=== PATIENT | male | born 1965 | race Caucasian/White ===

== ENCOUNTER 2017-11-15 23:21 | Inpatient (IN) | payer OTHER ==
[2017-11-15 23:38] VITALS: BMI 21.9
--- NOTE | 2017-11-16 03:09 | ED PDOC ---
Arrival/HPI - General Chief Complaint: GI Problem Time Seen by Provider: 11/16/17 00:56 Historian: Patient - History of Present Illness Narrative History of Present Illness (Text): 11/16/17 03:05 A 52 year old male, with no known past medical history, presents to the emergency department complaining of abdominal pain and inability to eat. The patient states that he has cirrhosis and the last time he had a tab done was 1 week ago at [facility] [place]. The patient states that he lost his job last year, and has not been able to see a doctor because he has "no money". The patient notes that he has had weight loss since the abdominal pain began because he has not been able to eat. The patient denies fevers, chills, headache, dizziness, chest pain , shortness of breath, dyspnea on exertion, cough, diarrhea, back pain, neck pain, urinary/bowel changes, or any other complaint. PMD: None Time/Duration: Other (Today) Symptom Onset: Sudden Symptom Course: Unchanged Activities at Onset: Rest, Light Context: Street Past Medical History - Provider Review Nursing Documentation Reviewed: Yes - Infectious Disease Hx of Infectious Diseases: None - Musculoskeletal/Rheumatological Hx Falls: Yes - Gastrointestinal Other/Comment: SOME KIND OF LIVER PROBLEM. ? Ascites - Psychiatric Hx Substance Use: No - Anesthesia Hx Anesthesia: Yes Hx Anesthesia Reactions: No Family/Social History - Physician Review Nursing Documentation Reviewed: Yes Family/Social History: No Known Family HX Smoking Status: Never Smoked Hx Alcohol Use: Yes (history) Hx Substance Use: No Allergies/Home Meds Allergies/Adverse Reactions: Allergies No Known Allergies Allergy (Verified 11/16/17 18:28) Review of Systems - Physician Review All systems were reviewed & negative as marked: Yes - Review of Systems Constitutional: absent: Fevers, Night Sweats ENT: absent: Sore Throat Respiratory: absent: SOB, Cough Cardiovascular: absent: Chest Pain, GALEAS Gastrointestinal: Abdominal Pain. absent: Diarrhea Genitourinary Male: absent: Urinary Output Changes Musculoskeletal: absent: Back Pain, Neck Pain Neurological: absent: Headache, Dizziness Physical Exam Vital Signs Temp Pulse Resp BP Pulse Ox 11/16/17 16:25 96 H 19 109/64 100 11/16/17 13:00 79 18 122/65 99 11/16/17 11:30 124/69 11/16/17 11:23 86 18 124/69 99 01/09/18 09:06 90 20 106/70 99 11/16/17 07:00 98.6 F 70 16 102/80 100 11/16/17 05:21 98.6 F 76 18 104/76 100 11/16/17 03:21 98.6 F 82 14 103/62 99 11/16/17 01:21 98.6 F 70 16 100/58 L 100 11/15/17 23:21 98.5 F 80 15 101/61 99 Appearance: Positive for: Well-Appearing, Non-Toxic, Unkept (Homeless) Pain Distress: None Mental Status: Positive for: Alert and Oriented X 3 - Systems Exam Head: Present: Atraumatic, Normocephalic Pupils: Present: PERRL Extroacular Muscles: Present: EOMI Conjunctiva: Present: Normal Mouth: Present: Moist Mucous Membranes Neck: Present: Normal Range of Motion Respiratory/Chest: Present: Clear to Auscultation, Good Air Exchange. No: Respiratory Distress, Accessory Muscle Use Cardiovascular: Present: Regular Rate and Rhythm, Normal S1, S2. No: Murmurs Abdomen: Present: Other (Patient has ascietes over his abdomen. He also has old bandage clark.) Back: Present: Normal Inspection Upper Extremity: Present: Normal Inspection. No: Cyanosis, Edema Lower Extremity: Present: Normal Inspection. No: Edema Neurological: Present: GCS=15, CN II-XII Intact, Speech Normal Skin: Present: Warm, Dry, Normal Color. No: Rashes Psychiatric: Present: Alert, Oriented x 3, Normal Insight, Normal Concentration Medical Decision Making ED Course and Treatment: 11/16/17 03:11 Impression: A 52 year old male presents to the emergency department complaining of abdominal pain. Plan: -- Abdomen/Pelvis CT -- Chest CT -- Chest X-ray -- Labs -- Urinalysis -- Reassess and disposition Prior Visits: Notes and results from previous visits were reviewed. Patient was last seen in the emergency department on 10/25/17. The patient was seen in the emergency department complaining of abdominal discomfort, scrotal and penile edema, and icterus. The patient was hospitalized. Progress Notes: EKG: Ordered, reviewed, and independently interpreted the EKG. Rate : 103 BPM Rhythm : Sinus tachycardia Interpretation : Short IN. Otherwise normal. 11/16/17 05:42: resident care associate shahla. CT Chest Without Intravenous Contrast CT Abdomen and Pelvis Without Intravenous Contrast EXAM DATE/TIME: 11/16/2017 3:04 AM IMPRESSION: - Large amount of abdominal and pelvic free fluid/ascites. - Suspect mild, patchy groundglass consolidation in the upper lobes bilaterally. This could be due to minimal groundglass infiltrates/pneumonia. - Mild, diffuse subcutaneous edema/anasarca. - Otherwise, no evidence of significant acute process on this unenhanced exam. - Periosteal reaction involving the humeri bilaterally, symmetric in appearance , of uncertain etiology. Consider nonemergent followup bone scan for further evaluation. Dictated and Authenticated by: Belinda Fernandes MD 11/16/2017 5:57 AM Eastern Time ([place] & [place]) - Lab Interpretations Lab Results: 11/16/17 03:20 11/16/17 03:20 Lab Results 11/16/17 07:30: Alpha Fetoprotein 2.9 11/16/17 06:40: Urine Color Red, Urine Appearance Turbid, Urine pH 5.5, Ur Specific [place] >= 1.030, Urine Protein 30 H, Urine Glucose (UA) 100 H, Urine Ketones Trace H, Urine Blood Negative, Urine Nitrate Positive H, Urine Bilirubin Large H, Urine Urobilinogen 2.0 H, Ur Leukocyte Esterase Negative, Urine RBC Negative, Urine WBC 0 - 2, Ur Epithelial Cells 1 - 3, Urine Bacteria Trace, Hyaline Casts 5 - 10, Urine Other Mucus 11/16/17 03:20: Hepatitis A IgM Ab Negative, Hep Bs Antigen Negative, Hep B Core IgM Ab Negative, Hepatitis C Antibody Negative 11/16/17 03:20: Sodium 131 L, Potassium 4.3, Chloride 100, Carbon Dioxide 23, Anion Gap 13, BUN 27 H, Creatinine 1.3, Est GFR ( Amer) > 60, Est GFR ( Non-Af Amer) 58, Random Glucose 109, Calcium 8.9, Total Bilirubin 8.0 H, Direct Bilirubin 3.8 H, AST 69 H D, ALT 30, Alkaline Phosphatase 93, Lactate Dehydrogenase 527, Total Creatine Kinase 66, Troponin I < 0.01, NT-Pro-B Natriuret Pep 387, Total Protein 7.7, Albumin 2.9 L, Globulin 4.9, Albumin/ Globulin Ratio 0.6 L, Lipase 77 11/16/17 03:20: PT 25.5 H, INR 2.20 H 11/16/17 03:20: WBC 5.8, RBC 2.62 L, Hgb 8.7 L, Hct 24.5 L, MCV 93.5, MCH 33.2, MCHC 35.5, RDW 15.3 H, Plt Count 151, MPV 10.7, Gran % 61.9, Lymph % (Auto) 29.4 , [place] % (Auto) 8.0 H, Eos % (Auto) 0.5 L, Baso % (Auto) 0.2, Gran # 3.56, Lymph # 1.7, [place] # 0.5, Eos # 0.0, Baso # 0.01 I have reviewed the lab results: Yes - RAD Interpretation Radiology Orders: 11/16/17 03:04 CHEST,ABDOMEN, PELVIS W/O CONT [CT] Stat CHEST PORTABLE [RAD] Stat - Medication Orders Current Medication Orders: Albuterol/Ipratropium (Duoneb 3 Mg/0.5 Mg (3 Ml) Ud) 3 ml IH Q2H PRN PRN Reason: Shortness of Breath Calcium Carbonate (Oscal) 500 mg PO DAILY [facility] Last Admin: 11/18/17 10:35 Dose: 500 mg Folic Acid (Folic Acid) 1 mg PO DAILY [facility] Last Admin: 11/18/17 10:35 Dose: 1 mg Furosemide (Lasix) 40 mg PO DAILY [facility] Last Admin: 11/17/17 09:24 Dose: Not Given Non-Admin Reason: BP Parameters Not Met MAR Blood Pressure Document 11/17/17 09:24 TAV (Rec: 11/17/17 09:24 TAV [id number]) Blood Pressure Blood Pressure (100/60-150/90) 92/54 Lactulose (Enulose) 20 gm PO BID [facility] Last Admin: 11/18/17 17:27 Dose: 20 gm Lorazepam (Ativan) 1 mg IVP Q6H PRN; Protocol PRN Reason: Anxiety Multivitamins/Minerals (Therapeutic-M Tab) 1 tab PO 0800 [facility] Last Admin: 11/18/17 08:32 Dose: 1 tab Ondansetron HCl (Zofran Inj) 4 mg IVP Q4H PRN PRN Reason: Nausea/Vomiting Pantoprazole Sodium (Protonix Ec Tab) 40 mg PO 0600 [facility] Last Admin: 11/19/17 06:28 Dose: 40 mg Spironolactone (Aldactone) 50 mg PO DAILY [facility] Last Admin: 11/17/17 09:25 Dose: 50 mg Thiamine HCl (Vitamin B1 Tab) 100 mg PO DAILY [facility] Last Admin: 11/18/17 10:35 Dose: 100 mg Discontinued Medications Albumin Human (Albumin Human 25% (12.5 Gm/50 Ml)) 12.5 gm IV Q5H [facility] Stop: 11/19/17 08:31 Last Admin: 11/18/17 06:38 Dose: 12.5 gm eMAR Start Stop Document 11/18/17 06:38 BR (Rec: 11/18/17 06:39 BR [id number]) Intravenous Solution Start Date 11/18/17 Start Time 06:38 End Date 11/18/17 Azithromycin (Zithromax) 500 mg PO STAT [facility] PRN Reason: Protocol Stop: 11/16/17 09:16 Last Admin: 11/16/17 11:30 Dose: 500 mg Furosemide (Lasix) 40 mg IVP STAT ST[facility] Stop: 11/16/17 10:29 Last Admin: 11/16/17 11:30 Dose: 40 mg MAR Blood Pressure Document 11/16/17 11:30 SF (Rec: 11/16/17 11:31 SF [email or web address]) Blood Pressure Blood Pressure (100/60-150/90) 124/69 IVP Administration Document 11/16/17 11:30 SF (Rec: 11/16/17 11:31 SF [email or web address]) Charges for Administration # of IVP Administrations 1 Ceftriaxone Sodium (Rocephin 1 Gram Ivpb) 1 gm in 100 mls @ 200 mls/hr IVPB STAT STA PRN Reason: Protocol Stop: 11/16/17 09:44 Last Admin: 11/16/17 11:30 Dose: 200 mls/hr eMAR Start Stop Document 11/16/17 11:30 SF (Rec: 11/16/17 11:30 SF [email or web address]) Intravenous Solution Start Date 11/16/17 Start Time 11:30 End Date 11/16/17 End time 12:00 Total Infusion Time 30 Sodium Chloride (Sodium Chloride 0.9%) 500 mls @ 1,000 mls/hr IV .Q30M ONE Stop: 11/17/17 11:11 Last Admin: 11/17/17 14:58 Dose: 1,000 mls/hr eMAR Start Stop Document 11/17/17 14:58 TAV (Rec: 11/17/17 14:59 TAV [id number]) Intravenous Solution Start Date 11/17/17 Start Time 14:20 End Date 11/17/17 End time 14:50 Total Infusion Time 30 Ceftriaxone Sodium (Rocephin 2 Gm Ivpb) 2 gm in 100 mls @ 100 mls/hr IVPB DAILY [facility] PRN Reason: Protocol Last Admin: 11/18/17 10:36 Dose: 100 mls/hr eMAR Start Stop Document 11/18/17 10:36 TAV (Rec: 11/18/17 10:37 TAV [id number]) Intravenous Solution Start Date 11/18/17 Start Time 10:36 End Date 11/18/17 End time 11:40 Total Infusion Time 64 Vancomycin HCl (Vancomycin 1gm) 1 gm in 250 mls @ 167 mls/hr IVPB Q12H [facility] PRN Reason: Protocol Last Admin: 11/17/17 23:25 Dose: 167 mls/hr eMAR Start Stop Document 11/17/17 23:25 BR (Rec: 11/17/17 23:25 BR [id number]) Intravenous Solution Start Date 11/17/17 Start Time 23:25 End Date 11/18/17 End time 00:55 Total Infusion Time 90 Magnesium Oxide (Mag-Ox) 400 mg PO STAT STA Stop: 11/18/17 07:49 Last Admin: 11/18/17 08:32 Dose: 400 mg Phytonadione (Vitamin K Tab) 10 mg PO STAT STA Stop: 11/16/17 18:38 Last Admin: 11/16/17 18:49 Dose: 10 mg Pneumococcal Polyvalent Vaccine (Pneumovax 23 Vaccine) 0.5 ml IM .ONCE ONE Stop: 11/16/17 20:11 Potassium Chloride (K-Dur 20 Meq Er Tab) 40 meq PO STAT ST[facility] Stop: 11/18/17 07:49 Last Admin: 11/18/17 08:31 Dose: 40 meq Tramadol HCl (Ultram) 25 mg PO STAT STA Stop: 11/17/17 21:53 Last Admin: 11/17/17 21:59 Dose: 25 mg MAR Pain Assessment Document 11/17/17 21:59 BR (Rec: 11/17/17 21:59 BR [id number]) Pain Reassessment Is this a pain reassessment? No Sleep Is patient sleeping during reassessment? No Presence of Pain Presence of Pain Yes - PA / TAX AUDITOR / Resident Statement MD/DO has reviewed & agrees with the documentation as recorded. - Scribe Statement The provider has reviewed the documentation as recorded by the Scribe Pippa Lorenzo Provider Scribe Attestation: All medical record entries made by the Scribe were at my direction and personally dictated by me. I have reviewed the chart and agree that the record accurately reflects my personal performance of the history, physical exam, medical decision making, and the department course for this patient. I have also personally directed, reviewed, and agree with the discharge instructions and disposition. Disposition/Present on Arrival - Present on Arrival Any Indicators Present on Arrival: No History of DVT/PE: No History of Uncontrolled Diabetes: No Urinary Catheter: No History of Decub. Ulcer: No History Surgical Site Infection Following: None - Disposition Have Diagnosis and Disposition been Completed?: Yes Diagnosis: Alcoholic cirrhosis of liver with ascites Disposition: HOSPITALIZED Disposition Time: 07:00 Patient Plan: Admission Patient Problems: Current Active Problems Problem Status Onset Alcoholic cirrhosis of liver with ascites Acute Condition: FAIR
[2017-11-16 04:01] LABS: ALBUMIN 2.9 g/dL (3.0-4.8); ALT/SGPT 30 U/L (7-56); AST/SGOT 69 U/L (17-59); BLOOD UREA NITROGEN 27 mg/dL (7-21); CALCIUM 8.9 mg/dL (8.4-10.5); GFR AFRICAN-AMERICAN > 60; GFR NON-AFRICAN AMERICAN 58; INR 2.2 (0.93-1.08); LIPASE 77 U/L (23-300); PROTHROMBIN TIME 25.5 SECONDS (9.4-12.5)
[2017-11-16 04:11] LABS: B-TYPE NATRIURETIC PEPTIDE 387 pg/mL (0-450); TROPONIN I < 0.01 ng/mL
[2017-11-16 04:12] LABS: ALB/GLOB RATIO 0.6 (1.1-1.8); BILIRUBIN,DIRECT 3.8 mg/dL (0.0-0.4)
[2017-11-16 04:23] LABS: BASO # 0.01 K/mm3 (0.0-2.0); BASO % 0.2 % (0.0-3.0); EOS % 0.5 % (1.5-5.0); GRAN # 3.56 (1.4-6.5); GRAN % 61.9 % (50.0-68.0); HEMOGLOBIN 8.7 g/dL (14.0-18.0); LYMPH # 1.7 (1.2-3.4); LYMPH % 29.4 % (22.0-35.0); MEAN CELL VOLUME 93.5 fl (80.0-105.0); MEAN CORPUSCULAR HEMOGLOBIN 33.2 pg (25.0-35.0); MEAN CORPUSCULAR HGB CONC 35.5 g/dl (31.0-37.0); MEAN PLATELET VOLUME 10.7 fl (7.0-11.0); MONO # 0.5 (0.1-0.6); RBC 2.62 10^6/uL (3.5-6.1); RED CELL DISTRIBUTION WIDTH 15.3 % (11.5-14.5); WHITE BLOOD COUNT 5.8 10^3/ul (4.5-11.0)
--- NOTE | 2017-11-16 05:58 | CT ---
EXAM: CT Chest Without Intravenous Contrast CT Abdomen and Pelvis Without Intravenous Contrast EXAM DATE/TIME: 11/16/2017 3:04 AM CLINICAL HISTORY: 52 years old, male; Pain; Abdominal pain; Chest pain; Additional info: Cirrhosis, cachexia, ascites, abdominal pain TECHNIQUE: Axial computed tomography images of the chest, abdomen and pelvis without intravenous contrast. All CT scans at this facility use one or more dose reduction techniques, viz.: automated exposure control; ma/kV adjustment per patient size (including targeted exams where dose is matched to indication; i.e. head); or iterative reconstruction technique. All CT scans at this facility use one or more dose reduction techniques, viz.: automated exposure control; ma/kV adjustment per patient size (including targeted exams where dose is matched to indication; i.e. head); or iterative reconstruction technique. Coronal and sagittal reformatted images were created and reviewed. COMPARISON: No relevant prior studies available. FINDINGS: CHEST: LUNGS: Scattered patchy groundglass densities in the anterior upper lobes bilaterally. Findings could represent scattered, mild groundglass consolidation. Dense consolidation in the lung bases bilaterally, greater on the right, which most likely represents compressive atelectasis. Lung volumes are low. Right diaphragm is mildly elevated. No evidence of diffuse pulmonary vascular congestion. PLEURAL SPACE: No pneumothorax or significant pleural effusions seen. HEART: No evidence of significant pericardial effusion. ABDOMEN: LIVER: Liver is small in size, which could be due to cirrhotic change. It is otherwise within normal limits in appearance on this unenhanced exam. GALLBLADDER AND BILE DUCTS: High density material in the gallbladder lumen, likely representing gallbladder sludge. Fluid is seen adjacent to the gallbladder. This is most likely related to the generalized abdominal free fluid rather than representing pericholecystic fluid secondary to acute cholecystitis. PANCREAS: No CT evidence of acute pancreatitis. SPLEEN: No acute abnormality of the spleen identified. ADRENALS: No acute abnormality of the adrenal glands. KIDNEYS AND URETERS: No acute abnormality of the kidneys seen. STOMACH AND BOWEL: Intramural lipomatosis of the ascending colon. This is a nonspecific finding, but can be a sign of previous episodes of inflammatory bowel disease. Otherwise, no significant abnormality of the bowel is identified. No acute abnormality of the stomach or duodenum identified. APPENDIX: Appendix is seen, and is within normal limits in appearance. PELVIS: BLADDER: No acute abnormality of the bladder identified. REPRODUCTIVE: No acute abnormality of the reproductive organs is seen. CHEST, ABDOMEN and PELVIS: INTRAPERITONEAL SPACE: Large amount of abdominal and pelvic free fluid/ascites. No evidence of free air. BONES/JOINTS: Periosteal reaction seen involving the humeral shafts bilaterally. This is smooth in appearance, and appears symmetric. No evidence of diffuse bony metastatic lesions. SOFT TISSUES: Mild, diffuse subcutaneous edema/anasarca. VASCULATURE: Exam is nondiagnostic for aortic dissection, secondary to unenhanced technique. No evidence of abdominal aortic aneurysm. LYMPH NODES: No evidence of diffuse lymphadenopathy. IMPRESSION: - Large amount of abdominal and pelvic free fluid/ascites. - Suspect mild, patchy groundglass consolidation in the upper lobes bilaterally. This could be due to minimal groundglass infiltrates/pneumonia. - Mild, diffuse subcutaneous edema/anasarca. - Otherwise, no evidence of significant acute process on this unenhanced exam. - Periosteal reaction involving the humeri bilaterally, symmetric in appearance, of uncertain etiology. Consider nonemergent followup bone scan for further evaluation. - See above for remaining findings.
[2017-11-16 07:20] LABS: PH,URINE 5.5 (4.7-8.0); URINE BILIRUBIN LARGE (NEGATIVE); URINE BLOOD NEGATIVE (NEGATIVE); URINE GLUCOSE (UA) 100 mg/dL (NEGATIVE); URINE LEUKOCYTE ESTERASE NEGATIVE Leu/uL (NEGATIVE); URINE NITRATE POSITIVE (NEGATIVE); URINE PROTEIN 30 mg/dL (<30 mg/dL)
[2017-11-16 07:33] LABS: URINE APPEARANCE TURBID (CLEAR); URINE COLOR RED (YELLOW)
[2017-11-16 07:54] LABS: URINE BACTERIA TRACE (NEG); URINE RBC NEGATIVE /hpf (0-2); URINE WBC 0 - 2 /hpf (0-6)
[2017-11-16] MEDS ORDERED: cefTRIAXone 1 gm 1 GM/100 ML BAG IVPB STA (09:15)
--- NOTE | 2017-11-16 09:18 | ED PDOC ---
Physical Exam Vital Signs Reviewed: Yes Vital Signs Temp Pulse Resp BP Pulse Ox 11/16/17 09:06 90 20 106/70 99 11/16/17 07:00 98.6 F 70 16 102/80 100 11/16/17 05:21 98.6 F 76 18 104/76 100 11/16/17 03:21 98.6 F 82 14 103/62 99 11/16/17 01:21 98.6 F 70 16 100/58 L 100 11/15/17 23:21 98.5 F 80 15 101/61 99 Temperature: Afebrile Blood Pressure: Normal Pulse: Regular Respiratory Rate: Normal Appearance: Positive for: Well-Appearing Pain Distress: None Mental Status: Positive for: Alert and Oriented X 3 Medical Decision Making ED Course and Treatment: 11/16/17 09:00 Patient signed out to me by Dr. Martin. Patient to follow-up with Urinalysis and to be admitted to GI evaluation. On exam patient appears jaundice. Abdomen is ascites and distended. No tenderness. He is not vomiting. Case was discussed with Dr. Jhaveri who recommends full admission secondary to INR elevation and need for tap by IR. CT reviewed with Dr. Jhaveri who recommends antibiotics. - Lab Interpretations Lab Results: 11/16/17 03:20 11/16/17 03:20 Lab Results 11/16/17 06:40: Urine Color Red, Urine Appearance Turbid, Urine pH 5.5, Ur Specific [place] >= 1.030, Urine Protein 30 H, Urine Glucose (UA) 100 H, Urine Ketones Trace H, Urine Blood Negative, Urine Nitrate Positive H, Urine Bilirubin Large H, Urine Urobilinogen 2.0 H, Ur Leukocyte Esterase Negative, Urine RBC Negative, Urine WBC 0 - 2, Ur Epithelial Cells 1 - 3, Urine Bacteria Trace, Hyaline Casts 5 - 10, Urine Other Mucus 11/16/17 03:20: Sodium 131 L, Potassium 4.3, Chloride 100, Carbon Dioxide 23, Anion Gap 13, BUN 27 H, Creatinine 1.3, Est GFR ( Amer) > 60, Est GFR ( Non-Af Amer) 58, Random Glucose 109, Calcium 8.9, Total Bilirubin 8.0 H, Direct Bilirubin 3.8 H, AST 69 H D, ALT 30, Alkaline Phosphatase 93, Lactate Dehydrogenase 527, Total Creatine Kinase 66, Troponin I < 0.01, NT-Pro-B Natriuret Pep 387, Total Protein 7.7, Albumin 2.9 L, Globulin 4.9, Albumin/ Globulin Ratio 0.6 L, Lipase 77 11/16/17 03:20: PT 25.5 H, INR 2.20 H 11/16/17 03:20: WBC 5.8, RBC 2.62 L, Hgb 8.7 L, Hct 24.5 L, MCV 93.5, MCH 33.2, MCHC 35.5, RDW 15.3 H, Plt Count 151, MPV 10.7, Gran % 61.9, Lymph % (Auto) 29.4 , [place] % (Auto) 8.0 H, Eos % (Auto) 0.5 L, Baso % (Auto) 0.2, Gran # 3.56, Lymph # 1.7, [place] # 0.5, Eos # 0.0, Baso # 0.01 - RAD Interpretation Radiology Orders: 11/16/17 03:04 CHEST,ABDOMEN, PELVIS W/O CONT [CT] Stat CHEST PORTABLE [RAD] Stat - Medication Orders Current Medication Orders: Azithromycin (Zithromax) 500 mg PO STAT STA PRN Reason: Protocol Stop: 11/16/17 09:16 Ceftriaxone Sodium (Rocephin 1 Gram Ivpb) 1 gm in 100 mls @ 200 mls/hr IVPB STAT STA PRN Reason: Protocol Stop: 11/16/17 09:44 - Scribe Statement The provider has reviewed the documentation as recorded by the Olegario Horta Provider Scribe Attestation: All medical record entries made by the Olegario were at my direction and personally dictated by me. I have reviewed the chart and agree that the record accurately reflects my personal performance of the history, physical exam, medical decision making, and the department course for this patient. I have also personally directed, reviewed, and agree with the discharge instructions and disposition. Disposition/Present on Arrival - Present on Arrival Any Indicators Present on Arrival: No History of DVT/PE: No History of Uncontrolled Diabetes: No Urinary Catheter: No History of Decub. Ulcer: No History Surgical Site Infection Following: None - Disposition Have Diagnosis and Disposition been Completed?: Yes Diagnosis: Alcoholic cirrhosis of liver with ascites Disposition Time: 09:12 Patient Plan: Admission Condition: FAIR
--- NOTE | 2017-11-16 09:47 | RAD ---
HISTORY: Weight Loss COMPARISON: No prior. FINDINGS: LUNGS: There is minimal bibasilar atelectasis. Poor inspiratory effort with diminished lung volumes PLEURA: No significant pleural effusion identified, no pneumothorax apparent. CARDIOVASCULAR: Normal. OSSEOUS STRUCTURES: No significant abnormalities. VISUALIZED UPPER ABDOMEN: Normal. OTHER FINDINGS: None. IMPRESSION: Minimal bibasilar atelectasis.
[2017-11-16] MEDS ORDERED: Albuterol-Ipratrop 3 mg / 0.5 (3 ml) UD IH PRN (10:23)
--- NOTE | 2017-11-16 10:36 | CP.PCM.CON ---
<Vidhya Waite - Last Filed: 11/16/17 15:20> History of Present Illness - History of Present Illness History of Present Illness: PGY2 Medicine Resident Consult note for GI 52yo male PMHx alcoholic cirrhosis and ascites with two prior paracentesis, EtOH abuse, asthma and depression presents to ED complaining of abdominal pain and abdominal swelling for 2 months worsening in the past week prior to admission. Patient reports the pain is 7/10 in intensity and described it as a pinching sensation. He stated the pain was diffuse throughout his abdomen and radiated to his back. He stated eating and drinking water exacerbated the pain which caused him to have a decreased appetite and some weight loss. Patient also complained of SOB and dyspnea on exertion but was unable to quantify how many blocks he was able to walk before becoming dyspneic. He also admitted to a nonproductive cough. Patient states he has been constipated and doesn't feel like he is going as he usually does. His last BM was 2 days ago and he stated he believes he noticed some specks of blood from straining and states that his stool was a little loose. He denied any tarry stool/melena. Patient also admits to some episodes of nausea and nonbloody nonbilious emesis "once in a while." He admitted to headaches and pain in his legs b/l and pruritus. Denied any travel history. Please note: patient reports he has been compliant in taking medications upon discharge from but states he ran out after finishing med course. ROS: 12 point review of systems negative except as indicated in HPI PMHx: alcoholic cirrhosis and ascites with two prior paracentesis, EtOH abuse, asthma and depression PSurgHx: ventral hernia repair PProcedures: paracentesis Oct 2017 at [facility] [place] removing 3.5L; denied hx of colonoscopy or EGD in the past PHospitalization: [facility] 10/25-11/03: admitted for ascites- paracentesis was not performed as not enough fluid to tap on u/s Family Hx: sister with asthma and "kidney problem"; father had heart disease; no hx if colon or gastric ca Social Hx: drinks a [employer] Lite 6pack-more [uncertain of amount] on social occasions which he states he has many of; last drink was in the summer 2016; denies EtOH and drug use; lives in a care home and is unemployed Medications: Please see medication reconciliation ALL: NKDA PMD: None GI: None Pharmacy: None Review of Systems - Review of Systems All systems: reviewed and no additional remarkable complaints except - Constitutional Constitutional: As Per HPI. absent: Chills, Fever - EENT Eyes: As Per HPI. absent: Blurred Vision Ears: As Per HPI. absent: Dizziness Nose/Mouth/Throat: As Per HPI, Dry Mouth - Cardiovascular Cardiovascular: As Per HPI, Dyspnea, Lightheadedness. absent: Chest Pain, Edema - Respiratory Respiratory: As Per HPI, Cough, Dyspnea, Dyspnea on Exertion. absent: Wheezing - Gastrointestinal Gastrointestinal: As Per HPI, Abdominal Pain, Constipation, Loose Stools, Nausea , Vomiting (nonbloody nonbilious). absent: Melena - Genitourinary Genitourinary: As Per HPI. absent: Dysuria, Hematuria - Musculoskeletal Musculoskeletal: As Per HPI, Arthralgias. absent: Numbness, Tingling - Integumentary Integumentary: As Per HPI, Pruritus, Jaundice - Neurological Neurological: As Per HPI, Headaches. absent: Dizziness - Psychiatric Psychiatric: As Per HPI, Depression. absent: Anxiety - Endocrine Endocrine: As Per HPI, Polydipsia. absent: Polyphagia - Hematologic/Lymphatic Hematologic: As Per HPI. absent: Easy Bruising Past Patient History - Infectious Disease Hx of Infectious Diseases: None - Past Social History Smoking Status: Never Smoked - MUSCULOSKELETAL/RHEUMATOLOGICAL Hx Falls: Yes - GASTROINTESTINAL Other/Comment: SOME KIND OF LIVER PROBLEM. ? Ascites - PSYCHIATRIC Hx Substance Use: No - SURGICAL HISTORY Hx Surgeries: Yes Hx Herniorrhaphy: Yes - ANESTHESIA Hx Anesthesia: Yes Hx Anesthesia Reactions: No Meds Allergies/Adverse Reactions: Allergies Allergy/AdvReac Type Severity Reaction Status Date / Time No Known Allergies Allergy Verified 10/25/17 19:01 - Medications Medications: Current Medications Albuterol/Ipratropium (Duoneb 3 Mg/0.5 Mg (3 Ml) Ud) 3 ml IH Q2H PRN PRN Reason: Shortness of Breath Lorazepam (Ativan) 1 mg IVP Q6H PRN; Protocol PRN Reason: Anxiety Multivitamins/Minerals (Therapeutic-M Tab) 1 tab PO 0800 [facility] Ondansetron HCl (Zofran Inj) 4 mg IVP Q4H PRN PRN Reason: Nausea/Vomiting Pantoprazole Sodium (Protonix Ec Tab) 40 mg PO 0600 MUNA Spironolactone (Aldactone) 50 mg PO DAILY MUNA Thiamine HCl (Vitamin B1 Tab) 100 mg PO DAILY MUNA Physical Exam - Constitutional Appears: No Acute Distress, Unkempt, Chronically Ill Additional comments: jaundiced - Head Exam Head Exam: ATRAUMATIC, NORMAL INSPECTION, NORMOCEPHALIC - Eye Exam Eye Exam: EOMI, PERRL, Scleral icterus. absent: Conjunctival injection, Normal appearance - ENT Exam ENT Exam: Mucous Membranes Dry - Neck Exam Neck exam: Positive for: Full Rom, Normal Inspection - Respiratory Exam Respiratory Exam: NORMAL BREATHING PATTERN. absent: Accessory Muscle Use, Respiratory Distress - Cardiovascular Exam Cardiovascular Exam: REGULAR RHYTHM, RRR, +S1, +S2. absent: Systolic Murmur - GI/Abdominal Exam GI & Abdominal Exam: Diminished Bowel Sounds, Distended, Soft, Tenderness ( diffuse to palpation). absent: Guarding, Organomegaly, Rigid - Extremities Exam Extremities exam: Positive for: normal capillary refill, normal inspection, pedal pulses present. Negative for: pedal edema - Neurological Exam Neurological exam: Alert, Oriented x3 - Psychiatric Exam Psychiatric exam: Normal Affect, Normal Mood - Skin Skin Exam: Dry, Intact, Warm Additional comments: +jaundice Results - Vital Signs Recent Vital Signs: Last Vital Signs Temp 98.6 F 11/16/17 07:00 Pulse 90 11/16/17 09:06 Resp 20 11/16/17 09:06 BP 106/70 11/16/17 09:06 Pulse Ox 99 11/16/17 09:06 - Labs Result Diagrams: 11/16/17 03:20 11/16/17 03:20 Assessment & Plan - Assessment and Plan (Free Text) Assessment: 52year old male PMHx alcoholic cirrhosis and ascites with two prior paracentesis , EtOH abuse, asthma and depression presents to ED complaining of abdominal pain and abdominal swelling for 2 months worsening in the past week prior to admission. 1.Decomponsated alcoholic cirrhosis with ascites 2.Concern for alcoholic hepatitis 3.Elevated INR 4.H of Anemia 5.Hx of alcohol abuse 6.Hx of asthma 7.Hx of depression Plan: -continue thiamine, folic acid, multivitamin and aldactone daily -CT Abd/pelvis: large amt abdominal and pelvc free fluid/ascites. Suspect mild, patchy ground glass consolidation in upper lobes b/l coudl be due to minimal groundglass infiltrates/pneumonia; mild diffuse subcutaneous edema/anasarca; no evidence of significant acute process on unhenanced exam -Hepatitis panel negative -f/u blood and urine cultures -f/u ammonia -f/u fluid studies -f/u abd u/s -f/u AFP -MELD-Na: 29 -Maddrey's Discriminant Factor: 67.8 -will discuss possible steroid therapy -monitor electrolytes and will add lasix accordingly -Child-Hilliard Score: 11 Child class C -IR Dr. Sullivan consulted for paracentesis -continue management as per primary GI will continue to follow Discussed with Dr. Ethan Waite PGY2 <Jose Guadalupe Long - Last Filed: 11/16/17 18:28> Meds - Medications Medications: Current Medications Albuterol/Ipratropium (Duoneb 3 Mg/0.5 Mg (3 Ml) Ud) 3 ml IH Q2H PRN PRN Reason: Shortness of Breath Folic Acid (Folic Acid) 1 mg PO DAILY MUNA Furosemide (Lasix) 40 mg PO DAILY MUNA Lorazepam (Ativan) 1 mg IVP Q6H PRN; Protocol PRN Reason: Anxiety Multivitamins/Minerals (Therapeutic-M Tab) 1 tab PO 0800 MUNA Ondansetron HCl (Zofran Inj) 4 mg IVP Q4H PRN PRN Reason: Nausea/Vomiting Pantoprazole Sodium (Protonix Ec Tab) 40 mg PO 0600 MUNA Spironolactone (Aldactone) 50 mg PO DAILY MUNA Thiamine HCl (Vitamin B1 Tab) 100 mg PO DAILY MUNA Results - Vital Signs Recent Vital Signs: Last Vital Signs Temp 98.6 F 11/16/17 07:00 Pulse 96 H 11/16/17 16:25 Resp 19 11/16/17 16:25 BP 109/64 11/16/17 16:25 Pulse Ox 100 11/16/17 16:25 - Labs Result Diagrams: 11/16/17 03:20 11/16/17 03:20 Labs: Laboratory Results - last 24 hr 11/16/17 11/16/17 11:30 11:30 Ammonia 42 H Blood Type O POSITIVE Antibody Screen Negative BBK History Checked Patient has bt Attending/Attestation - Attestation I have personally seen and examined this patient.: Yes I have fully participated in the care of the patient.: Yes I have reviewed all pertinent clinical information: Yes Notes (Text): 11/16/17 18:26 52 year old male h/o alcoholic cirrhosis, ascites admitted with abdominal distention. 1.Ascites 2.Cirrhosis Plan: -decompensated alcholic cirrhosis with ascites -recommend LVP, send fluid for cell count, diff, cytology, culture, tp, and albumin -replace albumin 25g/3 liters removed -continue diuretics -restrict sodium to less than 2 g per day -no indication for steroids as patient is already cirrhotic with small/nodular liver -patient doesn't appear to have alcholic hepatitis
--- NOTE | 2017-11-16 10:46 | CP.PCM.HP ---
<Junior Villegas - Last Filed: 11/16/17 13:57> History of Present Illness - History of Present Illness History of Present Illness: Junior Villegas PGY1 IM H&P for Dr. Jhaveri cc: difficulty eating and abdominal distention Mr. Ashton is a 52yo male with a PMH cirrhosis and ascites likely 2/2 ETOH (with 2 prior paracentesis removing 3.5L), ETOH abuse, and asthma who presented with abdominal pain and abdominal distention that started a year ago but has been progressing for 2 months. He stated eating and drinking water exacerbated the pain which caused him to have a decreased appetite and 20 pound loss. Patient also complained of SOB and dyspnea on exertion. He denied any tarry stool/melena. Patient also admits to some episodes of nausea and nonbloody nonbilious emesis. Patient reports he has been compliant in taking medications upon discharge from but states he ran out after finishing course , and doesn't have insurance/money to afford meds. 12-pt ROS was reviewed and is otherwise unremarkable. PMH: as above PSH: ventral hernia repair SHx: drinks beer socially (less than before but still significant), last drink was in the summer 2016; denies EtOH and drug use; lives in a prison and is unemployed NKDA Present on Admission - Present on Admission Any Indicators Present on Admission: No Review of Systems - Review of Systems All systems: reviewed and no additional remarkable complaints except (as per HPI ) Past Patient History - Infectious Disease Hx of Infectious Diseases: None - Past Social History Smoking Status: Never Smoked Alcohol: Social Drugs: Denies Home Situation {Lives}: Alone - CARDIAC Hx Cardiac Disorders: No - PULMONARY Hx Respiratory Disorders: No Hx Asthma: Yes - NEUROLOGICAL Hx Neurological Disorder: No - HEENT Hx HEENT Problems: No - RENAL Hx Chronic Kidney Disease: No - ENDOCRINE/METABOLIC Hx Endocrine Disorders: No - HEMATOLOGICAL/ONCOLOGICAL Hx Blood Disorders: No - INTEGUMENTARY Hx Dermatological Problems: No - MUSCULOSKELETAL/RHEUMATOLOGICAL Hx Musculoskeletal Disorders: No - GASTROINTESTINAL Other/Comment: ascites 2/2 cirrhosis - GENITOURINARY/GYNECOLOGICAL Hx Genitourinary Disorders: No - PSYCHIATRIC Hx Psychophysiologic Disorder: No Hx Substance Use: No - SURGICAL HISTORY Hx Surgeries: Yes Hx Herniorrhaphy: Yes - ANESTHESIA Hx Anesthesia: Yes Hx Anesthesia Reactions: No Meds Allergies/Adverse Reactions: Allergies Allergy/AdvReac Type Severity Reaction Status Date / Time No Known Allergies Allergy Verified 10/25/17 19:01 Physical Exam - Constitutional Appears: Well, Non-toxic, No Acute Distress, Cachectic - Head Exam Head Exam: ATRAUMATIC, NORMAL INSPECTION, NORMOCEPHALIC - Eye Exam Eye Exam: EOMI, Normal appearance, PERRL, Scleral icterus - ENT Exam ENT Exam: Mucous Membranes Moist, Normal Exam - Neck Exam Neck exam: Positive for: Normal Inspection Additional comments: neck vein distention - Respiratory Exam Respiratory Exam: Clear to Auscultation Bilateral, NORMAL BREATHING PATTERN. absent: Rales, Rhonchi, Wheezes, Respiratory Distress - Cardiovascular Exam Cardiovascular Exam: JVD, RRR, +S1, +S2. absent: Gallop, Rubs - GI/Abdominal Exam GI & Abdominal Exam: Distended (ascites ), Soft, Tenderness (midly diffuse) Additional comments: caput medusa noted + hepatojugular reflux + fluid wave - Extremities Exam Extremities exam: Positive for: normal inspection. Negative for: pedal edema - Back Exam Back exam: NORMAL INSPECTION - Neurological Exam Neurological exam: Alert, CN II-XII Intact, Oriented x3 - Psychiatric Exam Psychiatric exam: Normal Affect, Normal Mood - Skin Skin Exam: Warm Additional comments: jaundice Results - Vital Signs Recent Vital Signs: Last Vital Signs Temp 98.6 F 11/16/17 07:00 Pulse 90 11/16/17 09:06 Resp 20 11/16/17 09:06 BP 106/70 11/16/17 09:06 Pulse Ox 99 11/16/17 09:06 - Labs Result Diagrams: 11/16/17 03:20 11/16/17 03:20 Assessment & Plan - Assessment and Plan (Free Text) Assessment: 52yo male with a PMH cirrhosis and ascites likely 2/2 ETOH (with 2 prior paracentesis removing 3.5L), ETOH abuse, and asthma who presented with abdominal pain and abdominal distention. Anemia is also noted, but is not new and there is no active bleeding. Tbili and AST are elevated. UA is noted with + nitrates and large bilirubin. MELD score 29pts, Child Hilliard score 11 (Class C) and Maddrey score 70. Plan: 1. Ascites and decreased PO intake 2/2 cirrhosis - hepatitis panel negative - ammonia level only mildly elevated - HIV ordered - abd US ordered - CT Chest/abdomen showed large amount of abdominal and pelvic free fluid/ ascites, mild, patchy groundglass consolidation in the upper lobes bilaterally, periosteal reaction involving the humeri bilaterally (symmetric in appearance) . - Lasix 40mg IVP x1 and Sprionolactone daily - zofran prn - IR consulted for possible paracentesis, recs appreciated - GI consulted for cirrhosis management, recs appreciated - SW consult - career services assistant referral 2. SOB - duonebs prn - rocephin and zithromax in ED - monitor O2 3. Anemia - likely 2/2 chronic disease - no signs of acute bleeding - will monitor H/H 4. ETOH abuse - MV, folic acid and thiamine - ativan prn - CIWA protocol 5. GI/DVT PPX - PTX - SCDs Patient was seen, examined and discussed with attending, Dr. Shakila Villegas PGY1 Pager # [phone] <Sheryl Jhaveri - Last Filed: 11/16/17 17:53> Results - Vital Signs Recent Vital Signs: Last Vital Signs Temp 98.6 F 11/16/17 07:00 Pulse 96 H 11/16/17 16:25 Resp 19 11/16/17 16:25 BP 109/64 11/16/17 16:25 Pulse Ox 100 11/16/17 16:25 - Labs Result Diagrams: 11/16/17 03:20 11/16/17 03:20 Labs: Laboratory Results - last 24 hr 11/16/17 11/16/17 11:30 11:30 Ammonia 42 H Blood Type O POSITIVE Antibody Screen Negative BBK History Checked Patient has bt Attending/Attestation - Attestation I have personally seen and examined this patient.: Yes I have fully participated in the care of the patient.: Yes I have reviewed all pertinent clinical information: Yes Notes (Text): 11/16/17 17:49 attending note; Patient seen and examined with resident in ER. Patient is a 52 year old male with past medical history of alcoholic cirrhosis and ascites (with 2 prior paracentesis removing 3.5L) asthma who presented with abdominal pain and abdominal distention that started a year ago but has been progressing for 2 months. progressive/decompensated alcoholic cirrhosis. GI evaluation requested. We will follow up for the need for steroids. Hepatitis serology is negative. case discussed with IR for possible paracentesis. Coagulopathy; we will give FFP before procedure. Continue Lasix and Aldactone. homelessness; social work assistant evaluation requested. Patient will benefit from evaluation with hepatology clinic at [facility] Upon discharge. Patient stopped alcohol use over a year ago. Patient will be referred to [facility] [place] clinic upon discharge. Long-term prognosis is poor.
[2017-11-16 11:23] LABS: HEPATITIS B SURFACE AG NEGATIVE (NEGATIVE)
[2017-11-16 11:28] LABS: HEPATITIS A IGM NEGATIVE (NEGATIVE); HEPATITIS B CORE AB Negative (NEGATIVE)
[2017-11-16 11:40] LABS: HEPATITIS C ANTIBODY Negative (NEGATIVE)
--- NOTE | 2017-11-16 19:20 | US ---
PROCEDURE: Portal vein duplex ultrasound. CLINICAL HISTORY: Cirrhosis. Deteriorating liver function. Evaluate for portal vein thrombosis. PHYSICIAN(S): Melecio Sullivan M.D. FINDINGS: The hepatic parenchyma is heterogeneous, consistent with cirrhosis. There is a large amount of ascites in the upper abdomen. The extrahepatic portal vein is patent with hepatopetal flow. The hepatic artery is enlarged and patent. Limited images of the central hepatic veins are patent. The spleen is not enlarged. IMPRESSION: 1. Patent portal vein with hepatopetal flow. 2. Large amount of ascites in the upper abdomen.
[2017-11-16] MEDS ORDERED: Influenza Vaccine 60 mcg/0.5 mL SYR (4YR UP) IM ONE (20:10)
[2017-11-16] MEDS ORDERED: Pneumococcal 23-Valent Vaccine IM ONE (20:10)
--- NOTE | 2017-11-16 22:40 | CARD ---
APPROVED REPORT EKG Measurement Heart [id number] NM [id number] <Conclusion> Sinus tachycardia with short NM Possible Inferior infarct, age undetermined Abnormal ECG
[2017-11-17] MEDS: Pantoprazole 40 mg EC Tab PO SCH (05:26)
--- NOTE | 2017-11-17 06:54 | CP.PCM.PN ---
<Vidhya Waite - Last Filed: 11/17/17 11:35> Subjective - Date & Time of Evaluation Date of Evaluation: 11/17/17 Time of Evaluation: 06:58 - Subjective Subjective: PGY2 Medicine Resident Progress note for GI Patient seen and examined at bedside. Nursing reported no acute events overnight and patient was afebrile. Admitted to abdominal pain and SOB with a nonproductive cough. Patient stated he was able to eat his jelly but it caused some abdominal discomfort and nausea. He denied any BM overnight and stated he hasn't had a BM since "last year" although on admission he stated he had one over the weekend. Patient denied any overt bleeding. He is making urine but reports it is dark in nature. Patient also admitted to leg pain which is chronic. ROS: 12 point review of systems negative except as indicated in HPI Objective - Vital Signs/Intake and Output Vital Signs (last 24 hours): Temp Pulse Resp BP Pulse Ox 98.6 F 96 H 19 109/64 100 11/16/17 19:46 11/16/17 19:46 11/16/17 19:46 11/16/17 19:46 11/16/17 16:25 Intake and Output: 11/16/17 11/17/17 18:59 06:59 Intake Total 760 Balance 760 - Medications Medications: Current Medications Albuterol/Ipratropium (Duoneb 3 Mg/0.5 Mg (3 Ml) Ud) 3 ml IH Q2H PRN PRN Reason: Shortness of Breath Folic Acid (Folic Acid) 1 mg PO DAILY MUNA Furosemide (Lasix) 40 mg PO DAILY MUNA Lorazepam (Ativan) 1 mg IVP Q6H PRN; Protocol PRN Reason: Anxiety Multivitamins/Minerals (Therapeutic-M Tab) 1 tab PO 0800 [facility] Ondansetron HCl (Zofran Inj) 4 mg IVP Q4H PRN PRN Reason: Nausea/Vomiting Pantoprazole Sodium (Protonix Ec Tab) 40 mg PO 0600 [facility] Last Admin: 11/17/17 05:26 Dose: Not Given Spironolactone (Aldactone) 50 mg PO DAILY MUNA Thiamine HCl (Vitamin B1 Tab) 100 mg PO DAILY [facility] - Labs Labs: PT 25.5 SECONDS (9.4-12.5) H 11/16/17 03:20 INR 2.20 (0.93-1.08) H 11/16/17 03:20 - Constitutional Appears: Unkempt, Chronically Ill - Head Exam Head Exam: ATRAUMATIC, NORMAL INSPECTION, NORMOCEPHALIC - Eye Exam Eye Exam: EOMI, Scleral icterus. absent: Conjunctival injection - ENT Exam ENT Exam: Mucous Membranes Moist - Neck Exam Neck Exam: Normal Inspection - Respiratory Exam Respiratory Exam: Clear to Ausculation Bilateral, NORMAL BREATHING PATTERN. absent: Accessory Muscle Use, Rales, Rhonchi, Wheezes, Respiratory Distress - Cardiovascular Exam Cardiovascular Exam: REGULAR RHYTHM, RRR, +S1, +S2. absent: Murmur - GI/Abdominal Exam GI & Abdominal Exam: Distended, Soft, Tenderness, Normal Bowel Sounds. absent: Organomegaly, Rebound - Extremities Exam Extremities Exam: Normal Capillary Refill, Normal Inspection. absent: Pedal Edema - Neurological Exam Neurological Exam: Alert, Awake, Oriented x3 - Psychiatric Exam Psychiatric exam: Normal Affect, Normal Mood - Skin Skin Exam: Dry, Intact Additional comments: jaundiced Assessment and Plan - Assessment and Plan (Free Text) Assessment: 52year old male PMHx alcoholic cirrhosis and ascites with two prior paracentesis , EtOH abuse, asthma and depression presents to ED complaining of abdominal pain and abdominal swelling for 2 months worsening in the past week prior to admission. 1.Decomponsated alcoholic cirrhosis with ascites 2.Concern for alcoholic hepatitis 3.Elevated INR 4.H of Anemia 5.Hx of alcohol abuse 6.Hx of asthma 7.Hx of depression Plan: -continue thiamine, folic acid, multivitamin and aldactone daily -CT Abd/pelvis: large amt abdominal and pelvc free fluid/ascites. Suspect mild, patchy ground glass consolidation in upper lobes b/l coudl be due to minimal groundglass infiltrates/pneumonia; mild diffuse subcutaneous edema/anasarca; no evidence of significant acute process on unhenanced exam -Hepatitis panel negative -f/u blood and urine cultures -ammonia: 42 -f/u fluid studies -abd u/s: patent portal vein with hepatopetal flow; large amt ascites in upper abdomen -Albumin 25% 1g/kg for 2 days -f/u AFP -MELD-Na: 29 -Maddrey's Discriminant Factor: 67.8 -will discuss possible steroid therapy -Child-Hilliard Score: 11 Child class C -IR Dr. Sullivan consulted for paracentesis -continue management as per primary -measure daily weight -strict Is and Os Discussed with Dr. Tameka Waite PGY2 <Richard English MD - Last Filed: 11/17/17 20:14> Objective - Vital Signs/Intake and Output Vital Signs (last 24 hours): Temp Pulse Resp BP Pulse Ox 98.9 F 93 H 20 92/58 L 96 11/17/17 08:19 11/17/17 13:16 11/17/17 08:19 11/17/17 13:16 11/17/17 08:19 - Medications Medications: Current Medications Albumin Human (Albumin Human 25% (12.5 Gm/50 Ml)) 12.5 gm IV Q5H [facility] Stop: 11/19/17 08:31 Last Admin: 11/17/17 17:49 Dose: 12.5 gm Albuterol/Ipratropium (Duoneb 3 Mg/0.5 Mg (3 Ml) Ud) 3 ml IH Q2H PRN PRN Reason: Shortness of Breath Folic Acid (Folic Acid) 1 mg PO DAILY [facility] Last Admin: 11/17/17 09:23 Dose: 1 mg Furosemide (Lasix) 40 mg PO DAILY [facility] Last Admin: 11/17/17 09:24 Dose: Not Given Lorazepam (Ativan) 1 mg IVP Q6H PRN; Protocol PRN Reason: Anxiety Multivitamins/Minerals (Therapeutic-M Tab) 1 tab PO 0800 [facility] Last Admin: 11/17/17 09:25 Dose: 1 tab Ondansetron HCl (Zofran Inj) 4 mg IVP Q4H PRN PRN Reason: Nausea/Vomiting Pantoprazole Sodium (Protonix Ec Tab) 40 mg PO 0600 [facility] Last Admin: 11/17/17 05:26 Dose: Not Given Spironolactone (Aldactone) 50 mg PO DAILY [facility] Last Admin: 11/17/17 09:25 Dose: 50 mg Thiamine HCl (Vitamin B1 Tab) 100 mg PO DAILY [facility] Last Admin: 11/17/17 09:25 Dose: 100 mg - Labs Labs: 11/17/17 06:45 11/17/17 06:45 PT 26.0 SECONDS (9.4-12.5) H 11/17/17 06:45 INR 2.22 (0.93-1.08) H 11/17/17 06:45 Attending/Attestation - Attestation I have personally seen and examined this patient.: Yes I have fully participated in the care of the patient.: Yes I have reviewed all pertinent clinical information, including history, physical exam and plan: Yes Notes (Text): 11/17/17 20:07 Patient seen and examined with GI fellow and medical claims assistant. This is a 52 year old male with PMHx alcoholic cirrhosis and ascites with two prior paracentesis, EtOH abuse, asthma and depression presents to ED complaining of abdominal pain and abdominal swelling for 2 months worsening in the past week prior to admission due to worsening ascites. Sonogram unremarkable for PVT and CT imaging reviewed does not show liver lesions. GB sludge with indirect hyperbilirubinemia. May have component of hemolysis. Will discontinue lasix due to hyponatremia. Strict I/O required as urine output has decreased. Therapeutic paracentesis recommended- send for albumin, total protein and cytology and culture. Start albumin 1gm/kg for 24 hours till urine output improves. Hepatitis panel negative. Will benefit from EGD if not done in last 6 months to screen for varices. Hold PPi due to high risk of SBP. MELD-Na: 29
[2017-11-17 07:24] LABS: MEAN CELL VOLUME 93.3 fl (80.0-105.0); MEAN CORPUSCULAR HEMOGLOBIN 32.9 pg (25.0-35.0); MEAN CORPUSCULAR HGB CONC 35.3 g/dl (31.0-37.0); MEAN PLATELET VOLUME 10.3 fl (7.0-11.0); RBC 2.4 10^6/uL (3.5-6.1); RED CELL DISTRIBUTION WIDTH 15.3 % (11.5-14.5); WHITE BLOOD COUNT 6.2 10^3/ul (4.5-11.0)
[2017-11-17 07:37] LABS: INR 2.22 (0.93-1.08)
[2017-11-17 07:41] LABS: ALB/GLOB RATIO 0.6 (1.1-1.8); ALBUMIN 2.3 g/dL (3.0-4.8); ALT/SGPT 37 U/L (7-56); AST/SGOT 51 U/L (17-59); BLOOD UREA NITROGEN 26 mg/dL (7-21); CALCIUM 8.3 mg/dL (8.4-10.5); GFR AFRICAN-AMERICAN > 60; GFR NON-AFRICAN AMERICAN > 60; MAGNESIUM 1.6 mg/dL (1.7-2.2)
[2017-11-17 08:23] LABS: HEMOGLOBIN 7.9 g/dL (14.0-18.0)
[2017-11-17] MEDS: Multivitamin With Minerals Tab PO SCH (09:25)
[2017-11-17] MEDS ORDERED: Sodium Chloride 0.9% 500 ML IV ONE (10:42)
--- NOTE | 2017-11-17 11:44 | CP.PCM.PN ---
<Junior Villegas - Last Filed: 11/17/17 12:46> Subjective - Date & Time of Evaluation Date of Evaluation: 11/17/17 Time of Evaluation: 11:00 - Subjective Subjective: Patient was seen and examined at bedside. He complains of nausea and abdominal distention with eating thicker fluids however has no difficulty with water PO intake and denies any overnight events. The patient denies chest pain, shortness of breath, cough, fevers/chills, vomiting/diarrhea, headaches, changes in vision/hearing, tinnitus, dizziness, fatigue, weakness, abdominal pain, changes in urine or bowel habits. Objective - Vital Signs/Intake and Output Vital Signs (last 24 hours): Temp Pulse Resp BP Pulse Ox 98.9 F 102 H 20 92/54 L 96 11/17/17 08:19 11/17/17 08:19 11/17/17 08:19 11/17/17 09:24 11/17/17 08:19 Intake and Output: 11/17/17 11/17/17 06:59 18:59 Intake Total 760 Balance 760 - Medications Medications: Current Medications Albumin Human (Albumin Human 25% (12.5 Gm/50 Ml)) 12.5 gm IV Q5H [facility] Stop: 11/19/17 08:31 Albuterol/Ipratropium (Duoneb 3 Mg/0.5 Mg (3 Ml) Ud) 3 ml IH Q2H PRN PRN Reason: Shortness of Breath Folic Acid (Folic Acid) 1 mg PO DAILY [facility] Last Admin: 11/17/17 09:23 Dose: 1 mg Furosemide (Lasix) 40 mg PO DAILY [facility] Last Admin: 11/17/17 09:24 Dose: Not Given Lorazepam (Ativan) 1 mg IVP Q6H PRN; Protocol PRN Reason: Anxiety Multivitamins/Minerals (Therapeutic-M Tab) 1 tab PO 0800 [facility] Last Admin: 11/17/17 09:25 Dose: 1 tab Ondansetron HCl (Zofran Inj) 4 mg IVP Q4H PRN PRN Reason: Nausea/Vomiting Pantoprazole Sodium (Protonix Ec Tab) 40 mg PO 0600 [facility] Last Admin: 11/17/17 05:26 Dose: Not Given Spironolactone (Aldactone) 50 mg PO DAILY [facility] Last Admin: 11/17/17 09:25 Dose: 50 mg Thiamine HCl (Vitamin B1 Tab) 100 mg PO DAILY [facility] Last Admin: 11/17/17 09:25 Dose: 100 mg - Labs Labs: 11/17/17 06:45 11/17/17 06:45 PT 26.0 SECONDS (9.4-12.5) H 11/17/17 06:45 INR 2.22 (0.93-1.08) H 11/17/17 06:45 - Additional Findings Additional findings: - Constitutional Appears: Well, Non-toxic, No Acute Distress, Cachectic - Head Exam Head Exam: ATRAUMATIC, NORMAL INSPECTION, NORMOCEPHALIC - Eye Exam Eye Exam: EOMI, Normal appearance, PERRL, Scleral icterus - ENT Exam ENT Exam: Mucous Membranes Moist, Normal Exam - Neck Exam Neck exam: Positive for: Normal Inspection - Respiratory Exam Respiratory Exam: Clear to Auscultation Bilateral, NORMAL BREATHING PATTERN. absent: Rales, Rhonchi, Wheezes, Respiratory Distress - Cardiovascular Exam Cardiovascular Exam: JVD, RRR, +S1, +S2. absent: Gallop, Rubs - GI/Abdominal Exam GI & Abdominal Exam: Distended (ascites), Soft, Tenderness (midly diffuse) Additional comments: caput medusa noted + hepatojugular reflux + fluid wave - Extremities Exam Extremities exam: Positive for: normal inspection. Negative for: pedal edema - Back Exam Back exam: NORMAL INSPECTION - Neurological Exam Neurological exam: Alert, CN II-XII Intact, Oriented x3 - Psychiatric Exam Psychiatric exam: Normal Affect, Normal Mood - Skin Skin Exam: Warm Additional comments: jaundice Assessment and Plan - Assessment and Plan (Free Text) Assessment: 52yo male with a PMH cirrhosis and ascites likely 2/2 ETOH (with 2 prior paracentesis removing 3.5L), ETOH abuse, and asthma who presented with abdominal pain and abdominal distention. Anemia is also noted, but is not new and there is no active bleeding. Tbili and AST are elevated. UA is noted with + nitrates and large bilirubin but little WBC. MELD score 29pts, Child Hilliard score 11 (Class C) and Maddrey score 70. Tolerating liquid diet and scheduled for paracentesis today. Plan: 1. Ascites and decreased PO intake 2/2 cirrhosis - scheduled for paracentesis today - will start albumin per GI recs - holding Lasix and Spironolactine given BP, plan to start is per GI recs - hepatitis panel negative - ammonia level only mildly elevated - HIV pending - abd US showed patent portal vein - CT Chest/abdomen showed large amount of abdominal and pelvic free fluid/ ascites, mild, patchy groundglass consolidation in the upper lobes bilaterally, periosteal reaction involving the humeri bilaterally (symmetric in appearance) . - zofran prn - IR consulted for possible paracentesis, recs appreciated - GI consulted for cirrhosis management, recs appreciated - SW consult - certified wellness program coordinator referral 2. SOB - duonebs prn - rocephin and zithromax in ED - monitor O2 3. Anemia - likely 2/2 chronic disease - no signs of acute bleeding - will monitor H/H 4. ETOH abuse - MV, folic acid and thiamine - ativan prn - CIWA protocol 5. GI/DVT PPX - PTX - SCDs Patient was seen, examined and discussed with attending, Dr. Shakila Villegas PGY1 Pager # [phone] <Sheryl Jhaveri - Last Filed: 11/17/17 17:22> Objective - Vital Signs/Intake and Output Vital Signs (last 24 hours): Temp Pulse Resp BP Pulse Ox 98.9 F 93 H 20 92/58 L 96 11/17/17 08:19 11/17/17 13:16 11/17/17 08:19 11/17/17 13:16 11/17/17 08:19 Intake and Output: 11/17/17 11/17/17 06:59 18:59 Intake Total 760 Balance 760 - Medications Medications: Current Medications Albumin Human (Albumin Human 25% (12.5 Gm/50 Ml)) 12.5 gm IV Q5H [facility] Stop: 11/19/17 08:31 Last Admin: 11/17/17 14:57 Dose: 12.5 gm Albuterol/Ipratropium (Duoneb 3 Mg/0.5 Mg (3 Ml) Ud) 3 ml IH Q2H PRN PRN Reason: Shortness of Breath Folic Acid (Folic Acid) 1 mg PO DAILY [facility] Last Admin: 11/17/17 09:23 Dose: 1 mg Furosemide (Lasix) 40 mg PO DAILY [facility] Last Admin: 11/17/17 09:24 Dose: Not Given Lorazepam (Ativan) 1 mg IVP Q6H PRN; Protocol PRN Reason: Anxiety Multivitamins/Minerals (Therapeutic-M Tab) 1 tab PO 0800 [facility] Last Admin: 11/17/17 09:25 Dose: 1 tab Ondansetron HCl (Zofran Inj) 4 mg IVP Q4H PRN PRN Reason: Nausea/Vomiting Pantoprazole Sodium (Protonix Ec Tab) 40 mg PO 0600 [facility] Last Admin: 11/17/17 05:26 Dose: Not Given Spironolactone (Aldactone) 50 mg PO DAILY [facility] Last Admin: 11/17/17 09:25 Dose: 50 mg Thiamine HCl (Vitamin B1 Tab) 100 mg PO DAILY [facility] Last Admin: 11/17/17 09:25 Dose: 100 mg - Labs Labs: 11/17/17 06:45 11/17/17 06:45 PT 26.0 SECONDS (9.4-12.5) H 11/17/17 06:45 INR 2.22 (0.93-1.08) H 11/17/17 06:45 Attending/Attestation - Attestation I have personally seen and examined this patient.: Yes I have fully participated in the care of the patient.: Yes I have reviewed all pertinent clinical information, including history, physical exam and plan: Yes Notes (Text): 11/17/17 17:12 attending note; Patient seen and examined with resident. Patient is a 52 year old male with past medical history of alcoholic cirrhosis and ascites is admitted with progressive/decompensated alcoholic cirrhosis. GI evaluation appreciated. We will follow up for the need for steroids. Hepatitis serology is negative. s/p paracentesis by IR today. Transfuse IV albumin after paracentesis. GI evaluation appreciated. Coagulopathy; no active bleeding. HOld Lasix and Aldactone. Patient will be referred to [facility] upon discharge. Patient will be referred to [facility] hepatology clinic upon discharge. Long-term prognosis is poor. 11/17/17 17:20 11/17/17 17:22
[2017-11-17 12:50] LABS: BODY FLUID TYPE PERITONEAL
[2017-11-17 13:09] LABS: BF GROSS APPEARANCE CLEAR (CLEAR)
[2017-11-17 13:10] LABS: BODY FLUID TOTAL COUNT 100 (0-0)
--- NOTE | 2017-11-17 13:57 | US ---
PROCEDURE: Ultrasound guided paracentesis. HISTORY: Alcoholic cirrhosis. Recurrent ascites with abdominal pain and distension. Needs paracentesis. PHYSICIAN(S): Melceio Sullivan MD. TECHNIQUE: The relative risks and indications for the procedure were explained to the patient and informed written consent obtained. Sonography of the abdomen was performed in a supine position. This revealed a moderate to large amount of non-loculated ascites, greatest in the right lower quadrant. A puncture site was selected and the area was prepped and draped in the usual sterile fashion. 1% Xylocaine was used to anesthetize the skin and soft tissues. A 7 Maltese paracentesis catheter was trocared into the right lower quadrantand 7000 cc of clear, bilious yellow fluid aspirated. The appropriate labs were sent. IMPRESSION: Ultrasound-guided paracentesis in the right lower quadrant. 7000 cc of fluid were aspirated. Labs were sent
[2017-11-17] MEDS ORDERED: Albumin Human 25% (12.5 gm/50 ml) IV SCH ×2 (14:00)
[2017-11-17] MEDS: Albumin Human 25% (12.5 gm/50 ml) IV SCH ×3 (14:57→21:33)
[2017-11-17] MEDS ORDERED: Vancomycin 1gm in NS 250ml 1 GM/250 ML BAG IVPB SCH (23:00)
[2017-11-18] MEDS: Albumin Human 25% (12.5 gm/50 ml) IV SCH ×2 (02:18→06:38)
--- NOTE | 2017-11-18 05:19 | CP.PCM.PN ---
Addendum entered and electronically signed by Vidhya Waite DO 11/18/17 14:59: Recommend Lasix 20mg and Aldactone 50mg po daily upon discharge Discussed with attending Dr. Ethan Waite PGY2 Original Note: <Vidhya Waite - Last Filed: 11/18/17 09:22> Subjective - Date & Time of Evaluation Date of Evaluation: 11/18/17 Time of Evaluation: 09:22 - Subjective Subjective: PGY2 Medicine Resident Progress note for GI Patient seen and examined at bedside. POD#1 paracentesis. Nursing reported no acute events overnight and patient was afebrile. Patient reports his SOB has improved but still complains of some abdominal pain. He reports not having a BM yet and is making small UO. Tolerated liquid diet diet. Complained of b/l pain in his legs which is chronic. ROS: 12 point review of systems negative except as indicated in HPI Objective - Vital Signs/Intake and Output Vital Signs (last 24 hours): Temp Pulse Resp BP Pulse Ox 98.9 F 93 H 20 92/58 L 96 11/17/17 08:19 11/17/17 13:16 11/17/17 08:19 11/17/17 13:16 11/17/17 08:19 Intake and Output: 11/17/17 11/18/17 18:59 06:59 Intake Total 600 Output Total 325 Balance 275 - Medications Medications: Current Medications Albumin Human (Albumin Human 25% (12.5 Gm/50 Ml)) 12.5 gm IV Q5H [facility] Stop: 11/19/17 08:31 Last Admin: 11/18/17 02:18 Dose: 12.5 gm Albuterol/Ipratropium (Duoneb 3 Mg/0.5 Mg (3 Ml) Ud) 3 ml IH Q2H PRN PRN Reason: Shortness of Breath Folic Acid (Folic Acid) 1 mg PO DAILY [facility] Last Admin: 11/17/17 09:23 Dose: 1 mg Furosemide (Lasix) 40 mg PO DAILY [facility] Last Admin: 11/17/17 09:24 Dose: Not Given Ceftriaxone Sodium (Rocephin 2 Gm Ivpb) 2 gm in 100 mls @ 100 mls/hr IVPB DAILY [facility] PRN Reason: Protocol Vancomycin HCl (Vancomycin 1gm) 1 gm in 250 mls @ 167 mls/hr IVPB Q12H [facility] PRN Reason: Protocol Last Admin: 11/17/17 23:25 Dose: 167 mls/hr Lorazepam (Ativan) 1 mg IVP Q6H PRN; Protocol PRN Reason: Anxiety Multivitamins/Minerals (Therapeutic-M Tab) 1 tab PO 0800 [facility] Last Admin: 11/17/17 09:25 Dose: 1 tab Ondansetron HCl (Zofran Inj) 4 mg IVP Q4H PRN PRN Reason: Nausea/Vomiting Pantoprazole Sodium (Protonix Ec Tab) 40 mg PO 0600 [facility] Last Admin: 11/17/17 05:26 Dose: Not Given Spironolactone (Aldactone) 50 mg PO DAILY [facility] Last Admin: 11/17/17 09:25 Dose: 50 mg Thiamine HCl (Vitamin B1 Tab) 100 mg PO DAILY [facility] Last Admin: 11/17/17 09:25 Dose: 100 mg - Labs Labs: 11/17/17 06:45 11/17/17 06:45 PT 26.0 SECONDS (9.4-12.5) H 11/17/17 06:45 INR 2.22 (0.93-1.08) H 11/17/17 06:45 - Constitutional Appears: Unkempt, Chronically Ill - Head Exam Head Exam: ATRAUMATIC, NORMAL INSPECTION, NORMOCEPHALIC - Eye Exam Eye Exam: EOMI, Scleral icterus. absent: Conjunctival injection - ENT Exam ENT Exam: Mucous Membranes Moist - Neck Exam Neck Exam: Full ROM - Respiratory Exam Respiratory Exam: Clear to Ausculation Bilateral, NORMAL BREATHING PATTERN. absent: Accessory Muscle Use, Decreased Breath Sounds, Rales, Rhonchi, Wheezes, Respiratory Distress - Cardiovascular Exam Cardiovascular Exam: REGULAR RHYTHM, RRR, +S1, +S2. absent: Murmur - GI/Abdominal Exam GI & Abdominal Exam: Soft, Tenderness (diffuse to palpation), Normal Bowel Sounds. absent: Distended, Firm, Guarding, Rigid, Organomegaly Additional comments: distension greatly improved s/p paracentesis dressings c/d/i - Extremities Exam Extremities Exam: Normal Inspection. absent: Pedal Edema - Neurological Exam Neurological Exam: Alert, Awake, Oriented x3 - Psychiatric Exam Psychiatric exam: Normal Affect, Normal Mood - Skin Skin Exam: Dry, Intact, Warm. absent: Normal Color Additional comments: jaundice Assessment and Plan - Assessment and Plan (Free Text) Assessment: 52year old male PMHx alcoholic cirrhosis and ascites with two prior paracentesis , EtOH abuse, asthma and depression presents to ED complaining of abdominal pain and abdominal swelling for 2 months worsening in the past week prior to admission. 1.Decomponsated alcoholic cirrhosis with ascites 2.Concern for alcoholic hepatitis 3.Elevated INR 4.H of Anemia 5.Hx of alcohol abuse 6.Hx of asthma 7.Hx of depression Plan: -POD#1 paracentesis -Fluid studies: clear appearance WBC 107 RBC 37 Total cell count 100 Neutrophils 8.4 Lymphocytes 91.6 -continue thiamine, folic acid, multivitamin and aldactone daily -Lactulose 20mg po bid - monitor for diarrhea -CT Abd/pelvis: large amt abdominal and pelvc free fluid/ascites. Suspect mild, patchy ground glass consolidation in upper lobes b/l coudl be due to minimal groundglass infiltrates/pneumonia; mild diffuse subcutaneous edema/anasarca; no evidence of significant acute process on unhenanced exam -Hepatitis panel negative -blood cultures: prelim negative x 2 -urine cultures: gram+ cocci -ammonia: 42 -abd u/s: patent portal vein with hepatopetal flow; large amt ascites in upper abdomen -Albumin 25% 1g/kg for 2 days -AFP: 2.9 -MELD-Na: 29 -measure daily weight -strict Is and Os -no need for antibiotics from GI standpoint -will f/u electrolytes and make recommendations for diuretics upon discharge -Diet: GI/Hepatic with 2gm Na and Low fat with 60 gram protein; additionally patient started on 2 chocolate Prostat dietary supplement daily -Patient spoken to in detail regarding importance of low Na diet with no processed foods, no cheese, no seafood. Encouraged to eat a low salt high protein diet. -continue management as per primary Discussed with Dr. Ethan Waite PGY2 <Jose Guadalupe Long - Last Filed: 11/18/17 15:21> Objective - Vital Signs/Intake and Output Vital Signs (last 24 hours): Temp Pulse Resp BP Pulse Ox 98.2 F 84 20 90/57 L 97 11/18/17 07:30 11/18/17 07:30 11/18/17 07:30 11/18/17 07:30 11/18/17 07:30 Intake and Output: 11/18/17 11/18/17 06:59 18:59 Intake Total 1080 540 Output Total 325 Balance 755 540 - Medications Medications: Current Medications Albuterol/Ipratropium (Duoneb 3 Mg/0.5 Mg (3 Ml) Ud) 3 ml IH Q2H PRN PRN Reason: Shortness of Breath Calcium Carbonate (Oscal) 500 mg PO DAILY [facility] Last Admin: 11/18/17 10:35 Dose: 500 mg Folic Acid (Folic Acid) 1 mg PO DAILY [facility] Last Admin: 11/18/17 10:35 Dose: 1 mg Furosemide (Lasix) 40 mg PO DAILY [facility] Last Admin: 11/17/17 09:24 Dose: Not Given Lactulose (Enulose) 20 gm PO BID [facility] Last Admin: 11/18/17 13:36 Dose: 20 gm Lorazepam (Ativan) 1 mg IVP Q6H PRN; Protocol PRN Reason: Anxiety Multivitamins/Minerals (Therapeutic-M Tab) 1 tab PO 0800 [facility] Last Admin: 11/18/17 08:32 Dose: 1 tab Ondansetron HCl (Zofran Inj) 4 mg IVP Q4H PRN PRN Reason: Nausea/Vomiting Pantoprazole Sodium (Protonix Ec Tab) 40 mg PO 0600 [facility] Last Admin: 11/18/17 06:39 Dose: 40 mg Spironolactone (Aldactone) 50 mg PO DAILY [facility] Last Admin: 11/17/17 09:25 Dose: 50 mg Thiamine HCl (Vitamin B1 Tab) 100 mg PO DAILY [facility] Last Admin: 11/18/17 10:35 Dose: 100 mg - Labs Labs: 11/18/17 06:45 11/18/17 06:45 PT 27.3 SECONDS (9.4-12.5) H 11/18/17 06:45 INR 2.33 (0.93-1.08) H 11/18/17 06:45 Attending/Attestation - Attestation I have personally seen and examined this patient.: Yes I have fully participated in the care of the patient.: Yes I have reviewed all pertinent clinical information, including history, physical exam and plan: Yes Notes (Text): 11/18/17 15:20 52 year old male h/o alcoholic cirrhosis, ascites admitted with abdominal distention. 1. Alcoholic cirrhosis 2. Ascites Plan: -s/p LVP -albumin replacement given -no sbp -start diuretics on discharge as above -restrict sodium to less than 2 g per day
[2017-11-18] MEDS: Pantoprazole 40 mg EC Tab PO SCH (06:39)
[2017-11-18 07:21] LABS: HEMOGLOBIN 9.2 g/dL (14.0-18.0); MEAN CORPUSCULAR HEMOGLOBIN 32.3 pg (25.0-35.0); MEAN CORPUSCULAR HGB CONC 34.7 g/dl (31.0-37.0); MEAN PLATELET VOLUME 10.4 fl (7.0-11.0); RBC 2.85 10^6/uL (3.5-6.1); RED CELL DISTRIBUTION WIDTH 15.2 % (11.5-14.5); WHITE BLOOD COUNT 6.3 10^3/ul (4.5-11.0)
[2017-11-18 07:40] LABS: ALBUMIN 2.4 g/dL (3.0-4.8); ALT/SGPT 33 U/L (7-56); AST/SGOT 54 U/L (17-59); BLOOD UREA NITROGEN 21 mg/dL (7-21); GFR AFRICAN-AMERICAN > 60; GFR NON-AFRICAN AMERICAN > 60
[2017-11-18] MEDS ORDERED: Potassium Chloride 20 mEq ER Tab PO STA (07:48)
[2017-11-18] MEDS ORDERED: Magnesium Oxide 400 mg Tab UD PO STA (07:48)
[2017-11-18 07:52] LABS: ALB/GLOB RATIO 0.6 (1.1-1.8)
[2017-11-18 07:57] LABS: INR 2.33 (0.93-1.08); PROTHROMBIN TIME 27.3 SECONDS (9.4-12.5)
[2017-11-18] MEDS: Multivitamin With Minerals Tab PO SCH (08:32)
[2017-11-18] MEDS ORDERED: cefTRIAXone 2 GM IN NS 2 GM/100 ML BAG IVPB SCH (10:00)
--- NOTE | 2017-11-18 16:53 | CP.PCM.PN ---
<Junior Villegas - Last Filed: 11/18/17 18:41> Subjective - Date & Time of Evaluation Date of Evaluation: 11/18/17 Time of Evaluation: 09:30 - Subjective Subjective: Patient was seen and examined at bedside. He states that he has abdominal relief after the fluid was removed, and that he is tolerating his meals better. It is explained to the patient that the fluid Will be analyzed. The patient denies chest pain, shortness of breath, cough, fevers/chills, n/v/d, headaches, changes in vision/hearing, tinnitus, dizziness, fatigue, weakness, abdominal pain, changes in urine or bowel habits. After being seen by PT, patient feels unstable on his feet and that he is not ready for discharge. Objective - Vital Signs/Intake and Output Vital Signs (last 24 hours): Temp Pulse Resp BP Pulse Ox 98.2 F 84 20 90/57 L 97 11/18/17 07:30 11/18/17 07:30 11/18/17 07:30 11/18/17 07:30 11/18/17 07:30 Intake and Output: 11/18/17 11/18/17 06:59 18:59 Intake Total 1080 540 Output Total 325 Balance 755 540 - Medications Medications: Current Medications Albuterol/Ipratropium (Duoneb 3 Mg/0.5 Mg (3 Ml) Ud) 3 ml IH Q2H PRN PRN Reason: Shortness of Breath Calcium Carbonate (Oscal) 500 mg PO DAILY [facility] Last Admin: 11/18/17 10:35 Dose: 500 mg Folic Acid (Folic Acid) 1 mg PO DAILY [facility] Last Admin: 11/18/17 10:35 Dose: 1 mg Furosemide (Lasix) 40 mg PO DAILY [facility] Last Admin: 11/17/17 09:24 Dose: Not Given Lactulose (Enulose) 20 gm PO BID [facility] Last Admin: 11/18/17 13:36 Dose: 20 gm Lorazepam (Ativan) 1 mg IVP Q6H PRN; Protocol PRN Reason: Anxiety Multivitamins/Minerals (Therapeutic-M Tab) 1 tab PO 0800 [facility] Last Admin: 11/18/17 08:32 Dose: 1 tab Ondansetron HCl (Zofran Inj) 4 mg IVP Q4H PRN PRN Reason: Nausea/Vomiting Pantoprazole Sodium (Protonix Ec Tab) 40 mg PO 0600 [facility] Last Admin: 11/18/17 06:39 Dose: 40 mg Spironolactone (Aldactone) 50 mg PO DAILY [facility] Last Admin: 11/17/17 09:25 Dose: 50 mg Thiamine HCl (Vitamin B1 Tab) 100 mg PO DAILY [facility] Last Admin: 11/18/17 10:35 Dose: 100 mg - Labs Labs: 11/18/17 06:45 11/18/17 06:45 PT 27.3 SECONDS (9.4-12.5) H 11/18/17 06:45 INR 2.33 (0.93-1.08) H 11/18/17 06:45 - Additional Findings Additional findings: - Constitutional Appears: Well, Non-toxic, No Acute Distress, Cachectic - Head Exam Head Exam: ATRAUMATIC, NORMAL INSPECTION, NORMOCEPHALIC - Eye Exam Eye Exam: EOMI, Normal appearance, PERRL, Scleral icterus - ENT Exam ENT Exam: Mucous Membranes Moist, Normal Exam - Neck Exam Neck exam: Positive for: Normal Inspection - Respiratory Exam Respiratory Exam: Clear to Auscultation Bilateral, NORMAL BREATHING PATTERN. absent: Rales, Rhonchi, Wheezes, Respiratory Distress - Cardiovascular Exam Cardiovascular Exam: JVD, RRR, +S1, +S2. absent: Gallop, Rubs - GI/Abdominal Exam GI & Abdominal Exam: Distended (ascites), Soft, Tenderness (midly diffuse) Additional comments: ascites decreased significantly bandage over RLQ with no leakage of fluid or bleeding - Extremities Exam Extremities exam: Positive for: normal inspection. Negative for: pedal edema - Back Exam Back exam: NORMAL INSPECTION - Neurological Exam Neurological exam: Alert, CN II-XII Intact, Oriented x3 - Psychiatric Exam Psychiatric exam: Normal Affect, Normal Mood - Skin Skin Exam: Warm Additional comments: jaundice Assessment and Plan - Assessment and Plan (Free Text) Assessment: 52yo male with a PMH cirrhosis and ascites likely 2/2 ETOH (with 2 prior paracentesis removing 3.5L), ETOH abuse, and asthma who presented with abdominal pain and abdominal distention. Anemia is also noted, but is not new and there is no active bleeding. Tbili and AST are elevated. UA is noted with + nitrates and large bilirubin but little WBC, and urine cx shows <10,000 cfu. Patient received diagnostic/therapeutic paracentesis yesterday removing 7 L of fluid, pending analysis. Patient's condition is improving and is tolerating PO intake. Discharge pending improved mobility and stabilization of vital signs. Plan: 1. Ascites and decreased PO intake 2/2 cirrhosis - s/p paracentesis (7L removed); negative SBP - s/p 62.5mg albumin - holding Lasix and Spironolactine given BP, will give on discharge - hepatitis panel negative - ammonia level only mildly elevated; lactulose given to encourage bowel movement - HIV negative - zofran prn - IR consulted for possible paracentesis, recs appreciated - GI consulted for cirrhosis management, recs appreciated - SW consult - barrel marker referral - Discharge pending PT clearance 2. SOB - duonebs prn - monitor O2 3. Anemia - likely 2/2 chronic disease - no signs of acute bleeding - will monitor H/H 4. ETOH abuse - MV, folic acid and thiamine - ativan prn - CIWA protocol 5. GI/DVT PPX - PTX - SCDs Patient was seen, examined and discussed with attending, Dr. Navjot Villegas PGY1 Pager # [phone] <Sheryl Jhaveri - Last Filed: 11/20/17 16:36> Objective - Vital Signs/Intake and Output Vital Signs (last 24 hours): Temp Pulse Resp BP Pulse Ox 98.4 F 91 H 20 130/65 92 L 11/20/17 08:18 11/20/17 08:18 11/20/17 08:18 11/20/17 08:18 11/20/17 08:18 Intake and Output: 11/20/17 11/20/17 06:59 18:59 Intake Total 540 Output Total 450 Balance 90 - Medications Medications: Current Medications Albuterol/Ipratropium (Duoneb 3 Mg/0.5 Mg (3 Ml) Ud) 3 ml IH Q2H PRN PRN Reason: Shortness of Breath Calcium Carbonate (Oscal) 500 mg PO DAILY [facility] Last Admin: 11/20/17 11:44 Dose: 500 mg Folic Acid (Folic Acid) 1 mg PO DAILY [facility] Last Admin: 11/20/17 11:44 Dose: 1 mg Furosemide (Lasix) 40 mg PO DAILY [facility] Last Admin: 11/17/17 09:24 Dose: Not Given Lactulose (Enulose) 20 gm PO BID [facility] Last Admin: 11/20/17 11:44 Dose: 20 gm Lorazepam (Ativan) 1 mg IVP Q6H PRN; Protocol PRN Reason: Anxiety Multivitamins/Minerals (Therapeutic-M Tab) 1 tab PO 0800 [facility] Last Admin: 11/20/17 08:52 Dose: 1 tab Ondansetron HCl (Zofran Inj) 4 mg IVP Q4H PRN PRN Reason: Nausea/Vomiting Pantoprazole Sodium (Protonix Ec Tab) 40 mg PO 0600 [facility] Last Admin: 11/20/17 06:19 Dose: 40 mg Spironolactone (Aldactone) 50 mg PO DAILY [facility] Last Admin: 11/17/17 09:25 Dose: 50 mg Thiamine HCl (Vitamin B1 Tab) 100 mg PO DAILY [facility] Last Admin: 11/20/17 11:44 Dose: 100 mg - Labs Labs: 11/20/17 06:00 11/20/17 06:00 PT 27.8 SECONDS (9.4-12.5) H 11/20/17 06:00 INR 2.38 (0.93-1.08) H 11/20/17 06:00 Attending/Attestation - Attestation I have personally seen and examined this patient.: Yes I have fully participated in the care of the patient.: Yes I have reviewed all pertinent clinical information, including history, physical exam and plan: Yes Notes (Text): 11/20/17 16:36 attending note; Patient seen and examined with resident. Patient is a 52 year old male with past medical history of alcoholic cirrhosis and ascites is admitted with progressive/decompensated alcoholic cirrhosis. GI evaluation appreciated. We will follow up for the need for steroids. Hepatitis serology is negative. s/p paracentesis by IR. Transfused IV albumin after paracentesis. GI evaluation appreciated. Coagulopathy; no active bleeding. HOld Lasix and Aldactone. Patient is complaining of dizziness. Blood pressure on the outside. Hyponatremia after paracentesis/Lasix. Monitor closely. Patient will be referred to [facility] [place] clinic upon discharge. Patient will be referred to [facility] hepatology clinic upon discharge. Long-term prognosis is poor. <Argenis Morfin - Last Filed: 11/22/17 07:50> Objective - Vital Signs/Intake and Output Vital Signs (last 24 hours): Temp Pulse Resp BP Pulse Ox 98.1 F 105 H 20 103/76 100 11/21/17 16:00 11/21/17 16:00 11/21/17 16:00 11/21/17 16:00 11/21/17 16:00 - Medications Medications: Current Medications Albuterol/Ipratropium (Duoneb 3 Mg/0.5 Mg (3 Ml) Ud) 3 ml IH Q2H PRN PRN Reason: Shortness of Breath Calcium Carbonate (Oscal) 500 mg PO DAILY [facility] Last Admin: 11/21/17 10:25 Dose: 500 mg Folic Acid (Folic Acid) 1 mg PO DAILY [facility] Last Admin: 11/21/17 10:25 Dose: 1 mg Furosemide (Lasix) 40 mg PO DAILY [facility] Last Admin: 11/17/17 09:24 Dose: Not Given Lactulose (Enulose) 20 gm PO TID [facility] Last Admin: 11/21/17 17:55 Dose: 20 gm Lorazepam (Ativan) 1 mg IVP Q6H PRN; Protocol PRN Reason: Anxiety Multivitamins/Minerals (Therapeutic-M Tab) 1 tab PO 0800 [facility] Last Admin: 11/21/17 10:25 Dose: 1 tab Ondansetron HCl (Zofran Inj) 4 mg IVP Q4H PRN PRN Reason: Nausea/Vomiting Pantoprazole Sodium (Protonix Ec Tab) 40 mg PO 0600 [facility] Last Admin: 11/22/17 06:01 Dose: 40 mg Spironolactone (Aldactone) 25 mg PO DAILY [facility] Last Admin: 11/21/17 15:29 Dose: 25 mg Thiamine HCl (Vitamin B1 Tab) 100 mg PO DAILY [facility] Last Admin: 11/21/17 10:25 Dose: 100 mg - Labs Labs: 11/21/17 06:30 11/21/17 06:30 PT 26.0 SECONDS (9.4-12.5) H 11/21/17 05:00 INR 2.22 (0.93-1.08) H 11/21/17 05:00 Attending/Attestation - Attestation I have personally seen and examined this patient.: Yes I have fully participated in the care of the patient.: Yes I have reviewed all pertinent clinical information, including history, physical exam and plan: Yes Notes (Text): 11/18/17 52 year old male with past medical history of ascites and cirrhosis who presented with abdominal pain and distension. He is s/p paracentesis with 7 liters removed yesterday. He received albumin post procedure. His diuretics are on hold due to low normal blood pressure. His symptoms have improved. GI is following. PT evaluation is requested for d/c planning. Argenis Morfin MD Hospitalist.
[2017-11-18 23:43] LABS: URINE BILIRUBIN MODERATE (NEGATIVE); URINE BLOOD NEGATIVE (NEGATIVE); URINE GLUCOSE (UA) NEGATIVE (NEGATIVE); URINE LEUKOCYTE ESTERASE NEGATIVE Leu/uL (NEGATIVE); URINE NITRATE NEGATIVE (NEGATIVE); URINE PROTEIN 30 mg/dL (<30 mg/dL)
[2017-11-18 23:49] LABS: URINE APPEARANCE CLEAR (CLEAR); URINE COLOR DARK YELLOW (YELLOW)
[2017-11-19 00:04] LABS: URINE EPITHELIAL CELLS 0 - 2 /hpf (0-5); URINE RBC 0 - 2 /hpf (0-2); URINE WBC 0 - 2 /hpf (0-6)
[2017-11-19 00:29] LABS: BARBITURATES, UR NEGATIVE (NEGATIVE); BENZODIAZEPINES, UR NEGATIVE (NEGATIVE); OPIATES, UR NEGATIVE (NEGATIVE); PHENCYCLIDINE, UR NEGATIVE (NEGATIVE)
[2017-11-19] MEDS: Pantoprazole 40 mg EC Tab PO SCH (06:28)
[2017-11-19 07:30] LABS: HEMOGLOBIN 8.7 g/dL (14.0-18.0); MEAN CELL VOLUME 93.2 fl (80.0-105.0); MEAN CORPUSCULAR HEMOGLOBIN 32.7 pg (25.0-35.0); MEAN CORPUSCULAR HGB CONC 35.1 g/dl (31.0-37.0); MEAN PLATELET VOLUME 11.1 fl (7.0-11.0); RBC 2.66 10^6/uL (3.5-6.1); WHITE BLOOD COUNT 5.9 10^3/ul (4.5-11.0)
[2017-11-19 07:37] LABS: INR 2.5 (0.93-1.08); PROTHROMBIN TIME 29.3 SECONDS (9.4-12.5)
[2017-11-19 07:44] LABS: ALB/GLOB RATIO 0.6 (1.1-1.8); ALBUMIN 2.4 g/dL (3.0-4.8); ALT/SGPT 27 U/L (7-56); AST/SGOT 49 U/L (17-59); BLOOD UREA NITROGEN 19 mg/dL (7-21); CALCIUM 7.7 mg/dL (8.4-10.5); GFR AFRICAN-AMERICAN > 60; GFR NON-AFRICAN AMERICAN > 60
[2017-11-19] MEDS: Multivitamin With Minerals Tab PO SCH (10:06)
--- NOTE | 2017-11-19 13:13 | CP.PCM.PN ---
<Junior Villegas - Last Filed: 11/19/17 13:32> Subjective - Date & Time of Evaluation Date of Evaluation: 11/19/17 Time of Evaluation: 13:00 - Subjective Subjective: Patient was seen and examined at bedside. he is still complaining of some fatigue and a cough, however, his abdominal distention and poor intake has improved. The patient denies chest pain, shortness of breath, cough, fevers/ chills, n/v/d, headaches, changes in vision/hearing, tinnitus, dizziness, fatigue, weakness, abdominal pain, changes in urine or bowel habits. Objective - Vital Signs/Intake and Output Vital Signs (last 24 hours): Temp Pulse Resp BP Pulse Ox 98.0 F 89 20 92/61 L 97 11/19/17 07:30 11/19/17 07:30 11/19/17 07:30 11/19/17 07:30 11/19/17 07:30 Intake and Output: 11/19/17 11/19/17 06:59 18:59 Intake Total 420 Output Total 100 Balance 320 - Medications Medications: Current Medications Albuterol/Ipratropium (Duoneb 3 Mg/0.5 Mg (3 Ml) Ud) 3 ml IH Q2H PRN PRN Reason: Shortness of Breath Calcium Carbonate (Oscal) 500 mg PO DAILY [facility] Last Admin: 11/19/17 10:06 Dose: 500 mg Folic Acid (Folic Acid) 1 mg PO DAILY [facility] Last Admin: 11/19/17 10:06 Dose: 1 mg Furosemide (Lasix) 40 mg PO DAILY [facility] Last Admin: 11/17/17 09:24 Dose: Not Given Lactulose (Enulose) 20 gm PO BID [facility] Last Admin: 11/19/17 10:06 Dose: 20 gm Lorazepam (Ativan) 1 mg IVP Q6H PRN; Protocol PRN Reason: Anxiety Multivitamins/Minerals (Therapeutic-M Tab) 1 tab PO 0800 [facility] Last Admin: 11/19/17 10:06 Dose: 1 tab Ondansetron HCl (Zofran Inj) 4 mg IVP Q4H PRN PRN Reason: Nausea/Vomiting Pantoprazole Sodium (Protonix Ec Tab) 40 mg PO 0600 [facility] Last Admin: 11/19/17 06:28 Dose: 40 mg Spironolactone (Aldactone) 50 mg PO DAILY [facility] Last Admin: 11/17/17 09:25 Dose: 50 mg Thiamine HCl (Vitamin B1 Tab) 100 mg PO DAILY [facility] Last Admin: 11/19/17 10:06 Dose: 100 mg - Labs Labs: 11/19/17 07:00 11/19/17 07:00 PT 29.3 SECONDS (9.4-12.5) H 11/19/17 07:00 INR 2.50 (0.93-1.08) H 11/19/17 07:00 - Additional Findings Additional findings: - Constitutional Appears: Well, Non-toxic, No Acute Distress, Cachectic - Head Exam Head Exam: ATRAUMATIC, NORMAL INSPECTION, NORMOCEPHALIC - Eye Exam Eye Exam: EOMI, Normal appearance, PERRL, Scleral icterus - ENT Exam ENT Exam: Mucous Membranes Moist, Normal Exam - Neck Exam Neck exam: Positive for: Normal Inspection - Respiratory Exam Respiratory Exam: Clear to Auscultation Bilateral, NORMAL BREATHING PATTERN. absent: Rales, Rhonchi, Wheezes, Respiratory Distress - Cardiovascular Exam Cardiovascular Exam: JVD, RRR, +S1, +S2. absent: Gallop, Rubs - GI/Abdominal Exam GI & Abdominal Exam: Distended (ascites improved), Soft, Tenderness (midly diffuse) Additional comments: bandage over RLQ with no leakage of fluid or bleeding - Extremities Exam Extremities exam: Positive for: normal inspection. Negative for: pedal edema - Back Exam Back exam: NORMAL INSPECTION - Neurological Exam Neurological exam: Alert, CN II-XII Intact, Oriented x3 - Psychiatric Exam Psychiatric exam: Normal Affect, Normal Mood - Skin Skin Exam: Warm Additional comments: jaundice Assessment and Plan - Assessment and Plan (Free Text) Assessment: 52yo homeless male with a PMH cirrhosis and ascites likely 2/2 ETOH ( with 2 prior paracentesis removing 3.5L), ETOH abuse, and asthma who presented with abdominal pain and abdominal distention. Anemia is also noted, but is not new and there is no active bleeding. Tbili and AST are elevated. UA is noted with +nitrates and large bilirubin but little WBC, and urine cx shows <10,000 cfu. Patient received diagnostic/therapeutic paracentesis removing 7 L of fluid , which showed no signs of SBP. Patient's condition is improving and is tolerating PO intake. Discharge pending improved mobility and stabilization of vital signs. Plan: 1. Ascites and decreased PO intake 2/2 cirrhosis - s/p paracentesis (7L removed); negative SBP - s/p 62.5mg albumin - holding Lasix and Spironolactine given BP, will give low dosage on discharge - was on lactulose for bowel movements, however, this is chronic for him so lactulose held due to BP; ammonia not elevated and patient is alert and oriented - hepatitis panel negative - HIV negative - zofran prn - IR consulted for possible paracentesis, recs appreciated - GI consulted for cirrhosis management, recs appreciated - SW consult - spout tender referral - encouraged daily PT - Discharge pending PT clearance - Per SW, patient will return to his assisted upon discharge - Patient encouraged to follow up at [facility] after discharge for discussion about liver transplant 2. SOB - duonebs prn - monitor O2 3. Anemia - likely 2/2 chronic disease - no signs of acute bleeding - will monitor H/H - patient will follow up with GI as outpatient 4. ETOH abuse, not currently withdrawing or intoxicated - continued education about alcohol cessation - MV, folic acid and thiamine - ativan prn - CIWA protocol 5. GI/DVT PPX - PTX - SCDs Patient was seen, examined and discussed with attending, Dr. Shakila Villegas PGY1 Pager # [phone] <Sheryl Jhaveri - Last Filed: 11/19/17 14:13> Objective - Vital Signs/Intake and Output Vital Signs (last 24 hours): Temp Pulse Resp BP Pulse Ox 98.0 F 89 20 92/61 L 97 11/19/17 07:30 11/19/17 07:30 11/19/17 07:30 11/19/17 07:30 11/19/17 07:30 Intake and Output: 11/19/17 11/19/17 06:59 18:59 Intake Total 420 Output Total 100 Balance 320 - Medications Medications: Current Medications Albuterol/Ipratropium (Duoneb 3 Mg/0.5 Mg (3 Ml) Ud) 3 ml IH Q2H PRN PRN Reason: Shortness of Breath Calcium Carbonate (Oscal) 500 mg PO DAILY [facility] Last Admin: 11/19/17 10:06 Dose: 500 mg Folic Acid (Folic Acid) 1 mg PO DAILY [facility] Last Admin: 11/19/17 10:06 Dose: 1 mg Furosemide (Lasix) 40 mg PO DAILY [facility] Last Admin: 11/17/17 09:24 Dose: Not Given Lactulose (Enulose) 20 gm PO BID [facility] Last Admin: 11/19/17 10:06 Dose: 20 gm Lorazepam (Ativan) 1 mg IVP Q6H PRN; Protocol PRN Reason: Anxiety Multivitamins/Minerals (Therapeutic-M Tab) 1 tab PO 0800 [facility] Last Admin: 11/19/17 10:06 Dose: 1 tab Ondansetron HCl (Zofran Inj) 4 mg IVP Q4H PRN PRN Reason: Nausea/Vomiting Pantoprazole Sodium (Protonix Ec Tab) 40 mg PO 0600 [facility] Last Admin: 11/19/17 06:28 Dose: 40 mg Spironolactone (Aldactone) 50 mg PO DAILY [facility] Last Admin: 11/17/17 09:25 Dose: 50 mg Thiamine HCl (Vitamin B1 Tab) 100 mg PO DAILY [facility] Last Admin: 11/19/17 10:06 Dose: 100 mg - Labs Labs: 11/19/17 07:00 11/19/17 07:00 PT 29.3 SECONDS (9.4-12.5) H 11/19/17 07:00 INR 2.50 (0.93-1.08) H 11/19/17 07:00 Attending/Attestation - Attestation I have personally seen and examined this patient.: Yes I have fully participated in the care of the patient.: Yes I have reviewed all pertinent clinical information, including history, physical exam and plan: Yes Notes (Text): 11/19/17 14:10 attending note; Patient seen and examined with resident. Patient is a 52 year old male with past medical history of alcoholic cirrhosis and ascites is admitted with progressive/decompensated alcoholic cirrhosis. GI evaluation appreciated. We will follow up for the need for steroids. Hepatitis serology is negative. s/p paracentesis. GOt IV albumin after paracentesis. GI evaluation appreciated. Low blood pressure ;HOld Lasix and Aldactone. Hold lactulose. Monitor blood pressure closely. Ambulation with supervision. PT evaluation appreciated. matrix worker evaluation appreciated. Patient will return to assisted upon discharge. [place] [facility] [place]. Patient will be referred to [facility] hepatology clinic upon discharge. Long-term prognosis is poor. 11/19/17 14:13
[2017-11-20] MEDS: Pantoprazole 40 mg EC Tab PO SCH (06:19)
[2017-11-20 06:33] LABS: HEMOGLOBIN 8.9 g/dL (14.0-18.0); MEAN CELL VOLUME 93.7 fl (80.0-105.0); MEAN CORPUSCULAR HEMOGLOBIN 33.2 pg (25.0-35.0); MEAN CORPUSCULAR HGB CONC 35.5 g/dl (31.0-37.0); RBC 2.68 10^6/uL (3.5-6.1); RED CELL DISTRIBUTION WIDTH 15.3 % (11.5-14.5); WHITE BLOOD COUNT 5.6 10^3/ul (4.5-11.0)
[2017-11-20 06:34] LABS: MEAN PLATELET VOLUME 11.2 fl (7.0-11.0)
[2017-11-20 06:36] LABS: ALBUMIN 2.6 g/dL (3.0-4.8); ALT/SGPT 26 U/L (7-56); AST/SGOT 57 U/L (17-59); BLOOD UREA NITROGEN 18 mg/dL (7-21); CALCIUM 8.2 mg/dL (8.4-10.5); GFR AFRICAN-AMERICAN > 60; GFR NON-AFRICAN AMERICAN > 60
[2017-11-20 06:38] LABS: ALB/GLOB RATIO 0.6 (1.1-1.8)
[2017-11-20 06:40] LABS: INR 2.38 (0.93-1.08); PROTHROMBIN TIME 27.8 SECONDS (9.4-12.5)
[2017-11-20] MEDS: Multivitamin With Minerals Tab PO SCH (08:52)
[2017-11-20] MEDS ORDERED: Sodium Chloride 0.9% 500 ML IV STA (09:02)
--- NOTE | 2017-11-20 14:07 | CP.PCM.PN ---
<Jeromy Pond - Last Filed: 11/20/17 14:04> Subjective - Date & Time of Evaluation Date of Evaluation: 11/20/17 Time of Evaluation: 14:05 - Subjective Subjective: Medicine Progress Note Patient was seen and examined at bedside. No acute overnight events. Pt states that abdominal distention and poor intake has improved. The patient denies chest pain, shortness of breath, cough, fevers/chills, nausea, vomiting, diarrhea, headaches, changes in vision/hearing, tinnitus, dizziness, fatigue, weakness, abdominal pain, changes in urine or bowel habits. Objective - Vital Signs/Intake and Output Vital Signs (last 24 hours): Temp Pulse Resp BP Pulse Ox 98.4 F 91 H 20 130/65 92 L 11/20/17 08:18 11/20/17 08:18 11/20/17 08:18 11/20/17 08:18 11/20/17 08:18 Intake and Output: 11/20/17 11/20/17 06:59 18:59 Intake Total 540 Output Total 450 Balance 90 - Medications Medications: Current Medications Albuterol/Ipratropium (Duoneb 3 Mg/0.5 Mg (3 Ml) Ud) 3 ml IH Q2H PRN PRN Reason: Shortness of Breath Calcium Carbonate (Oscal) 500 mg PO DAILY [facility] Last Admin: 11/20/17 11:44 Dose: 500 mg Folic Acid (Folic Acid) 1 mg PO DAILY [facility] Last Admin: 11/20/17 11:44 Dose: 1 mg Furosemide (Lasix) 40 mg PO DAILY [facility] Last Admin: 11/17/17 09:24 Dose: Not Given Lactulose (Enulose) 20 gm PO BID [facility] Last Admin: 11/20/17 11:44 Dose: 20 gm Lorazepam (Ativan) 1 mg IVP Q6H PRN; Protocol PRN Reason: Anxiety Multivitamins/Minerals (Therapeutic-M Tab) 1 tab PO 0800 [facility] Last Admin: 11/20/17 08:52 Dose: 1 tab Ondansetron HCl (Zofran Inj) 4 mg IVP Q4H PRN PRN Reason: Nausea/Vomiting Pantoprazole Sodium (Protonix Ec Tab) 40 mg PO 0600 [facility] Last Admin: 11/20/17 06:19 Dose: 40 mg Spironolactone (Aldactone) 50 mg PO DAILY [facility] Last Admin: 11/17/17 09:25 Dose: 50 mg Thiamine HCl (Vitamin B1 Tab) 100 mg PO DAILY [facility] Last Admin: 11/20/17 11:44 Dose: 100 mg - Labs Labs: 11/20/17 06:00 11/20/17 06:00 PT 27.8 SECONDS (9.4-12.5) H 11/20/17 06:00 INR 2.38 (0.93-1.08) H 11/20/17 06:00 - Constitutional Appears: No Acute Distress - Head Exam Head Exam: NORMAL INSPECTION - Eye Exam Eye Exam: Normal appearance - ENT Exam ENT Exam: Normal Exam - Neck Exam Neck Exam: Normal Inspection - Respiratory Exam Respiratory Exam: Clear to Ausculation Bilateral. absent: Accessory Muscle Use , Rales, Rhonchi, Wheezes, Respiratory Distress - Cardiovascular Exam Cardiovascular Exam: RRR, +S1, +S2. absent: Gallop, Rubs, Murmur - GI/Abdominal Exam GI & Abdominal Exam: Distended (improved overall), Soft, Tenderness (diffuse, but improved overall). absent: Guarding, Rebound Additional comments: bandage clean, dry and intact, no signs of leak - Extremities Exam Extremities Exam: Normal Inspection - Back Exam Back Exam: NORMAL INSPECTION - Neurological Exam Neurological Exam: Alert, Awake, Oriented x3 - Psychiatric Exam Psychiatric exam: Normal Affect, Normal Mood - Skin Skin Exam: Dry, Intact, Normal Color, Warm Assessment and Plan - Assessment and Plan (Free Text) Assessment: 52yo homeless male with a PMH cirrhosis and ascites likely 2/2 ETOH ( with 2 prior paracentesis removing 3.5L), ETOH abuse, and asthma who presented with abdominal pain and abdominal distention. Anemia is also noted, but is not new and there is no active bleeding. Tbili and AST are elevated. UA is noted with +nitrates and large bilirubin but little WBC, and urine cx shows <10,000 cfu. Patient received diagnostic/therapeutic paracentesis removing 7 L of fluid , which showed no signs of SBP. Patient's condition is improving and is tolerating PO intake. Discharge pending improved mobility and stabilization of vital signs. Plan: 1. Ascites and decreased PO intake 2/2 cirrhosis - s/p paracentesis (7L removed); negative SBP - s/p 62.5mg albumin - holding Lasix due to hyponatremia - Hold Spironolactine today, will resume tomorrow - Lactulose resumed - NS 500 ml bolus - hepatitis panel negative - HIV negative - zofran prn - IR consulted for possible paracentesis, recs appreciated - GI consulted for cirrhosis management, recs appreciated - SW consult - supervisor car installations referral - encouraged daily PT - Discharge pending PT clearance - Per SW, patient will return to his custodial upon discharge - Patient encouraged to follow up at [facility] after discharge for discussion about liver transplant 2. SOB - duonebs prn - monitor O2 3. Anemia - likely 2/2 chronic disease - no signs of acute bleeding - will monitor H/H - patient will follow up with GI as outpatient 4. ETOH abuse, not currently withdrawing or intoxicated - continued education about alcohol cessation - MV, folic acid and thiamine - ativan prn - CIWA protocol GI/DVT PPX - Protonix - SCDs Patient was seen, examined and discussed with attending, Dr. Shakila Pond, PGY1 <Sheryl Jhaveri - Last Filed: 11/20/17 16:39> Objective - Vital Signs/Intake and Output Vital Signs (last 24 hours): Temp Pulse Resp BP Pulse Ox 98.4 F 91 H 20 130/65 92 L 11/20/17 08:18 11/20/17 08:18 11/20/17 08:18 11/20/17 08:18 11/20/17 08:18 Intake and Output: 11/20/17 11/20/17 06:59 18:59 Intake Total 540 Output Total 450 Balance 90 - Medications Medications: Current Medications Albuterol/Ipratropium (Duoneb 3 Mg/0.5 Mg (3 Ml) Ud) 3 ml IH Q2H PRN PRN Reason: Shortness of Breath Calcium Carbonate (Oscal) 500 mg PO DAILY [facility] Last Admin: 11/20/17 11:44 Dose: 500 mg Folic Acid (Folic Acid) 1 mg PO DAILY [facility] Last Admin: 11/20/17 11:44 Dose: 1 mg Furosemide (Lasix) 40 mg PO DAILY [facility] Last Admin: 11/17/17 09:24 Dose: Not Given Lactulose (Enulose) 20 gm PO BID [facility] Last Admin: 11/20/17 11:44 Dose: 20 gm Lorazepam (Ativan) 1 mg IVP Q6H PRN; Protocol PRN Reason: Anxiety Multivitamins/Minerals (Therapeutic-M Tab) 1 tab PO 0800 [facility] Last Admin: 11/20/17 08:52 Dose: 1 tab Ondansetron HCl (Zofran Inj) 4 mg IVP Q4H PRN PRN Reason: Nausea/Vomiting Pantoprazole Sodium (Protonix Ec Tab) 40 mg PO 0600 [facility] Last Admin: 11/20/17 06:19 Dose: 40 mg Spironolactone (Aldactone) 50 mg PO DAILY [facility] Last Admin: 11/17/17 09:25 Dose: 50 mg Thiamine HCl (Vitamin B1 Tab) 100 mg PO DAILY [facility] Last Admin: 11/20/17 11:44 Dose: 100 mg - Labs Labs: 11/20/17 06:00 11/20/17 06:00 PT 27.8 SECONDS (9.4-12.5) H 11/20/17 06:00 INR 2.38 (0.93-1.08) H 11/20/17 06:00 Attending/Attestation - Attestation I have personally seen and examined this patient.: Yes I have fully participated in the care of the patient.: Yes I have reviewed all pertinent clinical information, including history, physical exam and plan: Yes Notes (Text): 11/20/17 16:37 attending note; Patient seen and examined with resident. Patient is a 52 year old male with past medical history of alcoholic cirrhosis and ascites is admitted with progressive/decompensated alcoholic cirrhosis s/p paracentesis. GOt IV albumin after paracentesis. GI evaluation appreciated. Low blood pressure ;HOld Lasix and Aldactone. Blood pressure is acceptable. Chronic hyponatremia; dietary evaluation given. Complaining of abdominal discomfort; continue lactulose for constipation. Gait instability; monitor closely. 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 Patient will return to custodial upon discharge. Patient will be referred to [facility] clinic upon discharge. Patient will be referred to [facility] hepatology clinic upon discharge. Long-term prognosis is poor. 11/20/17 16:39
[2017-11-21] MEDS: Pantoprazole 40 mg EC Tab PO SCH (06:19)
[2017-11-21 07:26] LABS: HEMOGLOBIN 8.4 g/dL (14.0-18.0); MEAN CELL VOLUME 94.9 fl (80.0-105.0); MEAN CORPUSCULAR HEMOGLOBIN 33.2 pg (25.0-35.0); MEAN PLATELET VOLUME 11.4 fl (7.0-11.0); RBC 2.53 10^6/uL (3.5-6.1); RED CELL DISTRIBUTION WIDTH 15.3 % (11.5-14.5); WHITE BLOOD COUNT 5.8 10^3/ul (4.5-11.0)
[2017-11-21 07:44] LABS: INR 2.22 (0.93-1.08)
[2017-11-21 08:11] LABS: ALB/GLOB RATIO 0.6 (1.1-1.8); ALBUMIN 2.5 g/dL (3.0-4.8); ALT/SGPT 32 U/L (7-56); AST/SGOT 45 U/L (17-59); BLOOD UREA NITROGEN 22 mg/dL (7-21); CALCIUM 8.2 mg/dL (8.4-10.5); GFR AFRICAN-AMERICAN > 60; GFR NON-AFRICAN AMERICAN > 60
[2017-11-21] MEDS: Multivitamin With Minerals Tab PO SCH (10:25)
[2017-11-21] MEDS ORDERED: Morphine 2 mg/ml ISec IM ONE (10:48)
--- NOTE | 2017-11-21 13:49 | CP.PCM.PN ---
<Jeromy Pond - Last Filed: 11/21/17 13:46> Subjective - Date & Time of Evaluation Date of Evaluation: 11/21/17 Time of Evaluation: 13:46 - Subjective Subjective: Medicine Progress Note Pt seen and examined at bedside. No acute overnight events. Pt complains of abdominal distension and pain. Pt denies BM. Pt denies chest pain, shortness of breath, nausea, vomiting, diarrhea, abdominal pain, fever, chills, headache, or dizziness. Objective - Vital Signs/Intake and Output Vital Signs (last 24 hours): Temp Pulse Resp BP Pulse Ox 98.4 F 91 H 20 92/59 L 98 11/21/17 09:29 11/21/17 09:29 11/21/17 09:29 11/21/17 09:29 11/21/17 09:29 Intake and Output: 11/21/17 11/21/17 06:59 18:59 Intake Total 880 Output Total 400 Balance 480 - Medications Medications: Current Medications Albuterol/Ipratropium (Duoneb 3 Mg/0.5 Mg (3 Ml) Ud) 3 ml IH Q2H PRN PRN Reason: Shortness of Breath Calcium Carbonate (Oscal) 500 mg PO DAILY [facility] Last Admin: 11/21/17 10:25 Dose: 500 mg Folic Acid (Folic Acid) 1 mg PO DAILY [facility] Last Admin: 11/21/17 10:25 Dose: 1 mg Furosemide (Lasix) 40 mg PO DAILY [facility] Last Admin: 11/17/17 09:24 Dose: Not Given Lactulose (Enulose) 20 gm PO TID [facility] Lorazepam (Ativan) 1 mg IVP Q6H PRN; Protocol PRN Reason: Anxiety Multivitamins/Minerals (Therapeutic-M Tab) 1 tab PO 0800 [facility] Last Admin: 11/21/17 10:25 Dose: 1 tab Ondansetron HCl (Zofran Inj) 4 mg IVP Q4H PRN PRN Reason: Nausea/Vomiting Pantoprazole Sodium (Protonix Ec Tab) 40 mg PO 0600 [facility] Last Admin: 11/21/17 06:19 Dose: Not Given Spironolactone (Aldactone) 50 mg PO DAILY [facility] Last Admin: 11/17/17 09:25 Dose: 50 mg Thiamine HCl (Vitamin B1 Tab) 100 mg PO DAILY [facility] Last Admin: 11/21/17 10:25 Dose: 100 mg - Labs Labs: 11/21/17 06:30 11/21/17 06:30 PT 26.0 SECONDS (9.4-12.5) H 11/21/17 05:00 INR 2.22 (0.93-1.08) H 11/21/17 05:00 - Constitutional Appears: No Acute Distress - Head Exam Head Exam: NORMAL INSPECTION - Eye Exam Eye Exam: Normal appearance - ENT Exam ENT Exam: Normal Exam - Neck Exam Neck Exam: Normal Inspection - Respiratory Exam Respiratory Exam: Clear to Ausculation Bilateral. absent: Accessory Muscle Use , Rales, Rhonchi, Wheezes, Respiratory Distress - Cardiovascular Exam Cardiovascular Exam: RRR, +S1, +S2. absent: Gallop, Rubs, Murmur - GI/Abdominal Exam GI & Abdominal Exam: Distended, Firm, Tenderness. absent: Hernia, Mass, Rebound - Extremities Exam Extremities Exam: Normal Inspection - Back Exam Back Exam: NORMAL INSPECTION - Neurological Exam Neurological Exam: Alert, Awake, Oriented x3 - Psychiatric Exam Psychiatric exam: Normal Affect, Normal Mood - Skin Skin Exam: Dry, Intact, Normal Color, Warm Assessment and Plan - Assessment and Plan (Free Text) Assessment: 52yo homeless male with a PMH cirrhosis and ascites likely 2/2 ETOH ( with 2 prior paracentesis removing 3.5L), ETOH abuse, and asthma who presented with abdominal pain and abdominal distention. Anemia is also noted, but is not new and there is no active bleeding. Tbili and AST are elevated. UA is noted with +nitrates and large bilirubin but little WBC, and urine cx shows <10,000 cfu. Patient received diagnostic/therapeutic paracentesis removing 7 L of fluid , which showed no signs of SBP. Patient's condition is improving and is tolerating PO intake. Discharge pending improved mobility and stabilization of vital signs. Plan: 1. Ascites and decreased PO intake 2/2 cirrhosis - s/p paracentesis (7L removed); negative SBP - s/p 62.5mg albumin - Lasix and Aldactone held - Lactulose increased to TID - hepatitis panel negative - HIV negative - zofran prn - IR consulted for possible paracentesis, recs appreciated - GI consulted for cirrhosis management, recs appreciated - quick print operator referral - PT eval and treat - Per SW, patient will return to his fdc upon discharge - Patient encouraged to follow up at [facility] after discharge for discussion about liver transplant 2. SOB - duonebs prn - monitor O2 3. Anemia - likely 2/2 chronic disease - no signs of acute bleeding - will monitor H/H - patient will follow up with GI as outpatient 4. ETOH abuse, not currently withdrawing or intoxicated - continued education about alcohol cessation - MV, folic acid and thiamine - ativan prn GI/DVT PPX - Protonix - SCDs Patient was seen, examined and discussed with attending, Dr. Shakila Pond, PGY1 <Sheryl Jhaveri - Last Filed: 11/21/17 14:06> Objective - Vital Signs/Intake and Output Vital Signs (last 24 hours): Temp Pulse Resp BP Pulse Ox 98.4 F 91 H 20 92/59 L 98 11/21/17 09:29 11/21/17 09:29 11/21/17 09:29 11/21/17 09:29 11/21/17 09:29 Intake and Output: 11/21/17 11/21/17 06:59 18:59 Intake Total 880 Output Total 400 Balance 480 - Medications Medications: Current Medications Albuterol/Ipratropium (Duoneb 3 Mg/0.5 Mg (3 Ml) Ud) 3 ml IH Q2H PRN PRN Reason: Shortness of Breath Calcium Carbonate (Oscal) 500 mg PO DAILY [facility] Last Admin: 11/21/17 10:25 Dose: 500 mg Folic Acid (Folic Acid) 1 mg PO DAILY [facility] Last Admin: 11/21/17 10:25 Dose: 1 mg Furosemide (Lasix) 40 mg PO DAILY [facility] Last Admin: 11/17/17 09:24 Dose: Not Given Lactulose (Enulose) 20 gm PO TID [facility] Lorazepam (Ativan) 1 mg IVP Q6H PRN; Protocol PRN Reason: Anxiety Multivitamins/Minerals (Therapeutic-M Tab) 1 tab PO 0800 [facility] Last Admin: 11/21/17 10:25 Dose: 1 tab Ondansetron HCl (Zofran Inj) 4 mg IVP Q4H PRN PRN Reason: Nausea/Vomiting Pantoprazole Sodium (Protonix Ec Tab) 40 mg PO 0600 [facility] Last Admin: 11/21/17 06:19 Dose: Not Given Spironolactone (Aldactone) 50 mg PO DAILY [facility] Last Admin: 11/17/17 09:25 Dose: 50 mg Thiamine HCl (Vitamin B1 Tab) 100 mg PO DAILY [facility] Last Admin: 11/21/17 10:25 Dose: 100 mg - Labs Labs: 11/21/17 06:30 11/21/17 06:30 PT 26.0 SECONDS (9.4-12.5) H 11/21/17 05:00 INR 2.22 (0.93-1.08) H 11/21/17 05:00 Attending/Attestation - Attestation I have personally seen and examined this patient.: Yes I have fully participated in the care of the patient.: Yes I have reviewed all pertinent clinical information, including history, physical exam and plan: Yes Notes (Text): 11/21/17 14:03 attending note; Patient seen and examined with resident. Patient is a 52 year old male with past medical history of alcoholic cirrhosis and ascites is admitted with progressive/decompensated alcoholic cirrhosis s/p large volume paracentesis. GOt IV albumin after paracentesis. GI evaluation appreciated. No bacterial peritonitis. Mildly increased abdominal distention. Patient is complaining of abdominal pain. Started on Aldactone. Blood pressure on the low side. Continue to hold Lasix. Chronic hyponatremia; dietary evaluation given. Sodium is 127 today. Complaining of abdominal discomfort; continue lactulose for constipation. Patient will be referred to [facility] clinic upon discharge. Patient will be referred to [facility] hepatology clinic upon discharge. Long-term prognosis is poor.
[2017-11-22] MEDS: Pantoprazole 40 mg EC Tab PO SCH (06:01)
[2017-11-22 08:06] LABS: INR 2.15 (0.93-1.08); PROTHROMBIN TIME 25.1 SECONDS (9.4-12.5)
[2017-11-22 08:14] LABS: ALBUMIN 2.6 g/dL (3.0-4.8); ALT/SGPT 35 U/L (7-56); AST/SGOT 43 U/L (17-59); BLOOD UREA NITROGEN 25 mg/dL (7-21); CALCIUM 8.4 mg/dL (8.4-10.5); GFR AFRICAN-AMERICAN > 60; GFR NON-AFRICAN AMERICAN > 60; HEMOGLOBIN 8.4 g/dL (14.0-18.0); MEAN CELL VOLUME 93.7 fl (80.0-105.0); MEAN CORPUSCULAR HEMOGLOBIN 33.3 pg (25.0-35.0); MEAN CORPUSCULAR HGB CONC 35.6 g/dl (31.0-37.0); MEAN PLATELET VOLUME 11.2 fl (7.0-11.0); RBC 2.52 10^6/uL (3.5-6.1); RED CELL DISTRIBUTION WIDTH 15.1 % (11.5-14.5); WHITE BLOOD COUNT 5.1 10^3/ul (4.5-11.0)
[2017-11-22 08:17] LABS: ALB/GLOB RATIO 0.6 (1.1-1.8)
--- NOTE | 2017-11-22 09:25 | CP.PCM.PN ---
<Junior Villegas - Last Filed: 11/22/17 17:02> Subjective - Date & Time of Evaluation Date of Evaluation: 11/22/17 Time of Evaluation: 07:25 - Subjective Subjective: Junior Villegas PGY1 IM Progress Note for Dr. Jhaveri Hospitalist Service Patient was seen and examiend bedside. He states that he is feeling mild abdominal distension but does not endorse any complaints or problems with PO intake. He denies having any bowel movements in the past 24 hours. The patient denies chest pain, shortness of breath, fevers/chills, n/v/d Objective - Vital Signs/Intake and Output Vital Signs (last 24 hours): Temp Pulse Resp BP Pulse Ox 98.1 F 105 H 20 103/76 100 11/21/17 16:00 11/21/17 16:00 11/21/17 16:00 11/21/17 16:00 11/21/17 16:00 - Medications Medications: Current Medications Albuterol/Ipratropium (Duoneb 3 Mg/0.5 Mg (3 Ml) Ud) 3 ml IH Q2H PRN PRN Reason: Shortness of Breath Calcium Carbonate (Oscal) 500 mg PO DAILY [facility] Last Admin: 11/21/17 10:25 Dose: 500 mg Folic Acid (Folic Acid) 1 mg PO DAILY [facility] Last Admin: 11/21/17 10:25 Dose: 1 mg Furosemide (Lasix) 40 mg PO DAILY [facility] Last Admin: 11/17/17 09:24 Dose: Not Given Lactulose (Enulose) 20 gm PO TID [facility] Last Admin: 11/21/17 17:55 Dose: 20 gm Lorazepam (Ativan) 1 mg IVP Q6H PRN; Protocol PRN Reason: Anxiety Multivitamins/Minerals (Therapeutic-M Tab) 1 tab PO 0800 [facility] Last Admin: 11/21/17 10:25 Dose: 1 tab Ondansetron HCl (Zofran Inj) 4 mg IVP Q4H PRN PRN Reason: Nausea/Vomiting Pantoprazole Sodium (Protonix Ec Tab) 40 mg PO 0600 [facility] Last Admin: 11/22/17 06:01 Dose: 40 mg Spironolactone (Aldactone) 25 mg PO DAILY [facility] Last Admin: 11/21/17 15:29 Dose: 25 mg Thiamine HCl (Vitamin B1 Tab) 100 mg PO DAILY [facility] Last Admin: 11/21/17 10:25 Dose: 100 mg - Labs Labs: 11/22/17 07:30 11/22/17 07:30 PT 25.1 SECONDS (9.4-12.5) H 11/22/17 07:30 INR 2.15 (0.93-1.08) H 11/22/17 07:30 - Additional Findings Additional findings: - Constitutional Appears: Well, Non-toxic, No Acute Distress, Cachectic - Head Exam Head Exam: ATRAUMATIC, NORMAL INSPECTION, NORMOCEPHALIC - Eye Exam Eye Exam: EOMI, Normal appearance, PERRL, Scleral icterus - ENT Exam ENT Exam: Mucous Membranes Moist, Normal Exam - Neck Exam Neck exam: Positive for: Normal Inspection - Respiratory Exam Respiratory Exam: Clear to Auscultation Bilateral, NORMAL BREATHING PATTERN. absent: Rales, Rhonchi, Wheezes, Respiratory Distress - Cardiovascular Exam Cardiovascular Exam: JVD, RRR, +S1, +S2. absent: Gallop, Rubs - GI/Abdominal Exam GI & Abdominal Exam: Distended (ascites), Soft, Tenderness (midly diffuse) Additional comments: ascites decreased significantly bandage over RLQ with no leakage of fluid or bleeding - Extremities Exam Extremities exam: Positive for: normal inspection. Negative for: pedal edema - Back Exam Back exam: NORMAL INSPECTION - Neurological Exam Neurological exam: Alert, CN II-XII Intact, Oriented x3 - Psychiatric Exam Psychiatric exam: Normal Affect, Normal Mood - Skin Skin Exam: Warm Additional comments: jaundice Assessment and Plan - Assessment and Plan (Free Text) Assessment: 52yo male with a PMH cirrhosis and ascites likely 2/2 ETOH (with 2 prior paracentesis removing 3.5L), ETOH abuse, and asthma who presented with abdominal pain and abdominal distention. Anemia is also noted, but is not new and there is no active bleeding. Tbili and AST are elevated. UA is noted with + nitrates and large bilirubin but little WBC, and urine cx shows <10,000 cfu. Patient received diagnostic/therapeutic paracentesis yesterday removing 7 L of fluid, pending analysis. Patient's condition is improving and is tolerating PO intake. Discharge pending improved mobility and stabilization of vital signs. Plan: 1. Ascites and decreased PO intake 2/2 cirrhosis - s/p paracentesis (7L removed); negative SBP - s/p 62.5mg albumin - cont Spironolactine 25mg daily - hepatitis panel negative - ammonia level only mildly elevated; lactulose given to encourage bowel movement - HIV negative - zofran prn - IR consulted for possible paracentesis, recs appreciated - GI consulted for cirrhosis management, recs appreciated - SW consult - upholsterer inside referral - Discharge pending PT clearance 2. SOB - duonebs prn - monitor O2 3. Anemia - likely 2/2 chronic disease - no signs of acute bleeding - will monitor H/H 4. ETOH abuse - MV, folic acid and thiamine - ativan prn - CIWA protocol 5. GI/DVT PPX - PTX - SCDs Patient was seen, examined and discussed with attending, Dr. Shakila Villegas PGY1 Pager # [phone] <Sheryl Jhaveri - Last Filed: 11/23/17 07:55> Objective - Vital Signs/Intake and Output Vital Signs (last 24 hours): Temp Pulse Resp BP Pulse Ox 98.3 F 91 H 18 96/58 L 99 11/23/17 00:00 11/23/17 00:00 11/23/17 00:00 11/23/17 00:00 11/23/17 00:00 Intake and Output: 11/23/17 11/23/17 06:59 18:59 Intake Total 900 Output Total 2 Balance 898 - Medications Medications: Current Medications Albuterol/Ipratropium (Duoneb 3 Mg/0.5 Mg (3 Ml) Ud) 3 ml IH Q2H PRN PRN Reason: Shortness of Breath Calcium Carbonate (Oscal) 500 mg PO DAILY [facility] Last Admin: 11/22/17 12:35 Dose: 500 mg Folic Acid (Folic Acid) 1 mg PO DAILY [facility] Last Admin: 11/22/17 12:34 Dose: 1 mg Furosemide (Lasix) 40 mg PO DAILY [facility] Last Admin: 11/17/17 09:24 Dose: Not Given Lactulose (Enulose) 20 gm PO TID [facility] Last Admin: 11/22/17 17:21 Dose: 20 gm Lorazepam (Ativan) 1 mg IVP Q6H PRN; Protocol PRN Reason: Anxiety Multivitamins/Minerals (Therapeutic-M Tab) 1 tab PO 0800 [facility] Last Admin: 11/22/17 12:35 Dose: 1 tab Ondansetron HCl (Zofran Inj) 4 mg IVP Q4H PRN PRN Reason: Nausea/Vomiting Pantoprazole Sodium (Protonix Ec Tab) 40 mg PO 0600 [facility] Last Admin: 11/23/17 05:50 Dose: 40 mg Spironolactone (Aldactone) 25 mg PO DAILY [facility] Last Admin: 11/22/17 12:34 Dose: 25 mg Thiamine HCl (Vitamin B1 Tab) 100 mg PO DAILY [facility] Last Admin: 11/22/17 12:34 Dose: 100 mg - Labs Labs: 11/22/17 07:30 11/22/17 07:30 PT 25.1 SECONDS (9.4-12.5) H 11/22/17 07:30 INR 2.15 (0.93-1.08) H 11/22/17 07:30 Attending/Attestation - Attestation I have personally seen and examined this patient.: Yes I have fully participated in the care of the patient.: Yes I have reviewed all pertinent clinical information, including history, physical exam and plan: Yes Notes (Text): 11/23/17 07:55 attending note; Patient seen and examined with resident. Patient is a 52 year old male with past medical history of alcoholic cirrhosis and ascites is admitted with progressive/decompensated alcoholic cirrhosis s/p large volume paracentesis. GOt IV albumin after paracentesis. GI evaluation appreciated. No bacterial peritonitis. Mildly increased abdominal distention. Patient is complaining of abdominal pain. Started on Aldactone. Blood pressure on the low side. Continue to hold Lasix. Chronic hyponatremia; dietary evaluation given. Sodium is 127 today. Complaining of abdominal discomfort; continue lactulose for constipation. we will get social research assistant evaluation for discharge planning. Patient will be referred to [facility] clinic upon discharge. Patient will be referred to [facility] hepatology clinic upon discharge.
[2017-11-22] MEDS: Multivitamin With Minerals Tab PO SCH (12:35)
[2017-11-23] MEDS: Pantoprazole 40 mg EC Tab PO SCH (05:50)
[2017-11-23 07:52] LABS: HEMOGLOBIN 8.5 g/dL (14.0-18.0); MEAN CELL VOLUME 92.2 fl (80.0-105.0); MEAN CORPUSCULAR HEMOGLOBIN 33.2 pg (25.0-35.0); MEAN PLATELET VOLUME 10.7 fl (7.0-11.0); RBC 2.56 10^6/uL (3.5-6.1); RED CELL DISTRIBUTION WIDTH 15.2 % (11.5-14.5); WHITE BLOOD COUNT 4.9 10^3/ul (4.5-11.0)
[2017-11-23] MEDS: Multivitamin With Minerals Tab PO SCH (08:23)
[2017-11-23 08:33] LABS: ALBUMIN 2.6 g/dL (3.0-4.8); ALT/SGPT 31 U/L (7-56); AST/SGOT 43 U/L (17-59); BLOOD UREA NITROGEN 27 mg/dL (7-21); CALCIUM 8.6 mg/dL (8.4-10.5); GFR AFRICAN-AMERICAN > 60; GFR NON-AFRICAN AMERICAN > 60
[2017-11-23 08:53] LABS: ALB/GLOB RATIO 0.7 (1.1-1.8)
[2017-11-23 09:12] VITALS: BP 91/56; PULSE 90; RESP 20; TEMP 97.9; O2SAT 93
--- NOTE | 2017-11-23 12:09 | CP.PCM.DIS ---
<Mariann White - Last Filed: 11/23/17 14:49> Provider - Provider Date of Admission: 11/16/17 09:12 Attending physician: Sheryl Jhaveri MD Consults: GILBERT Sullivan Time Spent in preparation of Discharge (in minutes): 45 Hospital Course - Lab Results Lab Results: Micro Results 11/17/17 12:30 Ascitic Fluid Anaerobic Culture - Final NO ANAEROBES ISOLATED. 11/17/17 12:30 Ascitic Fluid Body Fluid Culture - Final NO GROWTH AFTER 4 DAYS 11/17/17 12:30 Ascitic Fluid Fungal Culture - Preliminary 11/16/17 11:30 Blood Blood Culture - Final NO GROWTH AFTER 5 DAYS 11/16/17 11:30 Blood Gram Stain - Final TEST NOT PERFORMED 11/16/17 11:00 Blood Blood Culture - Final NO GROWTH AFTER 5 DAYS 11/16/17 11:00 Blood Gram Stain - Final TEST NOT PERFORMED 11/18/17 23:30 Urine Urine Culture - Final No Growth (<1,000 CFU/ML) 11/17/17 13:00 Other: Please Indicate Mycobacterial Culture - Final 11/16/17 15:20 Urine,Clean Catch Urine Culture - Final Gram Positive Cocci Most Recent Lab Values WBC 4.9 10^3/ul (4.5-11.0) 11/23/17 07:30 RBC 2.56 10^6/uL (3.5-6.1) L 11/23/17 07:30 Hgb 8.5 g/dL (14.0-18.0) L 11/23/17 07:30 Hct 23.6 % (42.0-52.0) L 11/23/17 07:30 MCV 92.2 fl (80.0-105.0) 11/23/17 07:30 MCH 33.2 pg (25.0-35.0) 11/23/17 07:30 MCHC 36.0 g/dl (31.0-37.0) 11/23/17 07:30 RDW 15.2 % (11.5-14.5) H 11/23/17 07:30 Plt Count 120 10^3/uL (120.0-450.0) 11/23/17 07:30 MPV 10.7 fl (7.0-11.0) 11/23/17 07:30 Gran % 61.9 % (50.0-68.0) 11/16/17 03:20 Lymph % (Auto) 29.4 % (22.0-35.0) 11/16/17 03:20 [place] % (Auto) 8.0 % (1.0-6.0) H 11/16/17 03:20 Eos % (Auto) 0.5 % (1.5-5.0) L 11/16/17 03:20 Baso % (Auto) 0.2 % (0.0-3.0) 11/16/17 03:20 Gran # 3.56 (1.4-6.5) 11/16/17 03:20 Lymph # 1.7 (1.2-3.4) 11/16/17 03:20 [place] # 0.5 (0.1-0.6) 11/16/17 03:20 Eos # 0.0 (0.0-0.7) 11/16/17 03:20 Baso # 0.01 K/mm3 (0.0-2.0) 11/16/17 03:20 PT 25.1 SECONDS (9.4-12.5) H 11/22/17 07:30 INR 2.15 (0.93-1.08) H 11/22/17 07:30 Sodium 125 mmol/L (132-148) L 11/23/17 07:30 Potassium 4.2 mmol/L (3.6-5.0) 11/23/17 07:30 Chloride 97 mmol/L (98-107) L 11/23/17 07:30 Carbon Dioxide 23 mmol/L (21-33) 11/23/17 07:30 Anion Gap 10 (10-20) 11/23/17 07:30 BUN 27 mg/dL (7-21) H 11/23/17 07:30 Creatinine 1.2 mg/dl (0.8-1.5) 11/23/17 07:30 Est GFR ( Amer) > 60 11/23/17 07:30 Est GFR (Non-Af Amer) > 60 11/23/17 07:30 Random Glucose 89 mg/dL (70-110) 11/23/17 07:30 Calcium 8.6 mg/dL (8.4-10.5) 11/23/17 07:30 Phosphorus 3.8 mg/dL (2.5-4.5) 11/17/17 06:45 Magnesium 1.6 mg/dL (1.7-2.2) L 11/17/17 06:45 Total Bilirubin 5.2 mg/dL (0.2-1.3) H 11/23/17 07:30 Direct Bilirubin 3.8 mg/dL (0.0-0.4) H 11/16/17 03:20 AST 43 U/L (17-59) 11/23/17 07:30 ALT 31 U/L (7-56) 11/23/17 07:30 Alkaline Phosphatase 77 U/L (38-126) 11/23/17 07:30 Ammonia 27 umol/L (9-33) 11/18/17 09:50 Lactate Dehydrogenase 527 U/L (333-699) 11/16/17 03:20 Total Creatine Kinase 66 U/L (35-230) 11/16/17 03:20 Troponin I < 0.01 ng/mL 11/16/17 03:20 NT-Pro-B Natriuret Pep 387 pg/mL (0-450) 11/16/17 03:20 Total Protein 6.5 g/dL (5.8-8.3) 11/23/17 07:30 Albumin 2.6 g/dL (3.0-4.8) L 11/23/17 07:30 Globulin 3.9 gm/dL 11/23/17 07:30 Albumin/Globulin Ratio 0.7 (1.1-1.8) L 11/23/17 07:30 Lipase 77 U/L (23-300) 11/16/17 03:20 Alpha Fetoprotein 2.9 ng/mL (0.0-7.5) 11/16/17 07:30 Urine Color Dark yellow (YELLOW) 11/18/17 23:30 Urine Appearance Clear (CLEAR) 11/18/17 23:30 Urine pH 6.0 (4.7-8.0) 11/18/17 23:30 Ur Specific [place] 1.025 (1.005-1.035) 11/18/17 23:30 Urine Protein 30 mg/dL (<30 mg/dL) H 11/18/17 23:30 Urine Glucose (UA) Negative mg/dL (NEGATIVE) 11/18/17 23:30 Urine Ketones Trace mg/dL (NEGATIVE) H 11/18/17 23:30 Urine Blood Negative (NEGATIVE) 11/18/17 23:30 Urine Nitrate Negative (NEGATIVE) 11/18/17 23:30 Urine Bilirubin Moderate (NEGATIVE) H 11/18/17 23:30 Urine Urobilinogen 1.0 E.U./dL (<1 E.U./dL) H 11/18/17 23:30 Ur Leukocyte Esterase Negative Sandra/uL (NEGATIVE) 11/18/17 23:30 Urine RBC 0 - 2 /hpf (0-2) 11/18/17 23:30 Urine WBC 0 - 2 /hpf (0-6) 11/18/17 23:30 Ur Epithelial Cells 0 - 2 /hpf (0-5) 11/18/17 23:30 Urine Bacteria Trace (NEG) 11/16/17 06:40 Hyaline Casts 5 - 10 /hpf 11/16/17 06:40 Urine Other Mucus 11/16/17 06:40 Fluid Source Peritoneal 11/17/17 12:30 Fluid Appearance Clear (CLEAR) 11/17/17 12:30 Fluid WBC 107.0 /uL (0.0-300.0) 11/17/17 12:30 Fluid RBC 37.0 /uL (0.0-0.0) H 11/17/17 12:30 Fluid Tot Cell Count 100 (0-0) H 11/17/17 12:30 Fluid Neutrophils 8.4 % (0-0) H 11/17/17 12:30 Fluid Lymphocytes 91.6 % (0-0) H 11/17/17 12:30 Fld Monocyte/Macrophag TEST NOT PERFORMED 11/17/17 12:30 Fluid Albumin 0.5 g/dL 11/17/17 12:30 Fluid Comment Yellow 11/17/17 12:30 Urine Opiates Screen Negative (NEGATIVE) 11/18/17 23:30 Urine Methadone Screen Negative (NEGATIVE) 11/18/17 23:30 Ur Barbiturates Screen Negative (NEGATIVE) 11/18/17 23:30 Ur Phencyclidine Scrn Negative (NEGATIVE) 11/18/17 23:30 Ur Amphetamines Screen No result (NEGATIVE) 11/18/17 23:30 U Benzodiazepines Scrn Negative (NEGATIVE) 11/18/17 23:30 U Oth Cocaine Metabols Negative (NEGATIVE) 11/18/17 23:30 U Cannabinoids Screen Negative (NEGATIVE) 11/18/17 23:30 Alcohol, Quantitative < 10 mg/dL (0-10) 11/16/17 19:30 Hepatitis A IgM Ab Negative (NEGATIVE) 11/16/17 03:20 Hep Bs Antigen Negative (NEGATIVE) 11/16/17 03:20 Hep B Core IgM Ab Negative (NEGATIVE) 11/16/17 03:20 Hepatitis C Antibody Negative (NEGATIVE) 11/16/17 03:20 HIV 1&2 Ag/Ab, 4th Gen Nonreactive (Nonreactive) 11/17/17 06:30 Blood Type O POSITIVE 11/16/17 11:30 Antibody Screen Negative 11/16/17 11:30 BBK History Checked Patient has bt 11/16/17 11:30 - Hospital Course Hospital Course: 52 year old male with a PMH of cirrhosis, ascites likely secondary to alcohol abuse, and asthma presented to the [facility] on 11/16/2017 with abdominal pain and abdominal distention that started a year ago but had been progressing for the past 2 months. Patient had 2 prior paracentesis procedures, removing 3.5L of fluid. Patient stated that eating and drinking water exacerbated his pain and caused him to have a decreased appetite, resulting in 20lbs of weight loss. Patient also complained of SOB and dyspnea on exertion. In the ED, patient denied having any tarry stools/melena. Patient admitted to some episodes of nausea and nonbloody nonbilious emesis. CT chest/abdomen/pelvis showed large amount of abdominal and pelvic free fluid/ascites and mild patchy groundglass consolidation in the upper lobes bilaterally. Abdominal ultrasound showed large amount of ascites in the upper abdomen. IR and GI were consulted and the patient was admitted for cirrhosis w/ ascites. On 11/17/2017, paracentesis was preformed and 7L of fluid was removed and albumin was repleted. The patient was also started on Ceftriaxone and Vancomycin at this time after a Gram Positive cocci was detected in urine catch and has since improved. Today, the patient was seen at bedside, resting comfortably and in no acute distress. Patient stated that his abdominal pain has gotten better. The patient was educated on his current medical condition and all of his questions were answered to his satisfaction. Patient was discussed at length with attending physician and will be discharged to home with referral to [facility] for further followup and further therapeutic paracentesises. Discharge Exam - Head Exam Head Exam: NORMAL INSPECTION - Eye Exam Eye Exam: EOMI, Normal appearance, PERRL Pupil Exam: NORMAL ACCOMODATION, PERRL - ENT Exam ENT Exam: Mucous Membranes Moist - Respiratory Exam Respiratory Exam: Clear to PA & Lateral, NORMAL BREATHING PATTERN, UNREMARKABLE - Cardiovascular Exam Cardiovascular Exam: REGULAR RHYTHM, RRR, +S1, +S2 - GI/Abdominal Exam GI & Abdominal Exam: Normal Bowel Sounds, Soft. absent: Tenderness - Extremities Exam Extremities exam: normal inspection - Neurological Exam Neurological exam: Alert, CN II-XII Intact, Normal Gait, Oriented x3, Reflexes Normal - Psychiatric Exam Psychiatric exam: Normal Affect, Normal Mood - Skin Skin Exam: Dry, Intact, Normal Color, Warm Discharge Plan - Discharge Medications Prescriptions: Spironolactone [Aldactone] 25 mg PO BID #60 tab - Follow Up Plan Condition: FAIR Disposition: HOME/ ROUTINE Instructions: Cirrhosis (DC), Chronic Pain (DC), Liver Transplant (DC), Ascites (DC) Additional Instructions: - please take your medications as prescribed - please follow up at [facility] clinic within 1 week - please follow up with GI (Dr. Long) within 2 weeks of discharge - please consider follow up at [facility] ([place], [place]) for possible liver transplant - if you continue to experience shortness of breath, difficulty eating or any nausea/vomiting, please return to ER for evaluation - Please f/u with [facility] dept at [phone] Referrals: [facility] [Provider Group] [facility] at [facility] [Outside] Jose Guadalupe Long MD [Staff Provider] - <Sheryl Jhaveri - Last Filed: 11/23/17 16:03> Provider - Provider Date of Admission: 11/16/17 09:12 Attending physician: Sheryl Jhaveri MD Hospital Course - Lab Results Lab Results: Micro Results 11/17/17 12:30 Ascitic Fluid Anaerobic Culture - Final NO ANAEROBES ISOLATED. 11/17/17 12:30 Ascitic Fluid Body Fluid Culture - Final NO GROWTH AFTER 4 DAYS 11/17/17 12:30 Ascitic Fluid Fungal Culture - Preliminary 11/16/17 11:30 Blood Blood Culture - Final NO GROWTH AFTER 5 DAYS 11/16/17 11:30 Blood Gram Stain - Final TEST NOT PERFORMED 11/16/17 11:00 Blood Blood Culture - Final NO GROWTH AFTER 5 DAYS 11/16/17 11:00 Blood Gram Stain - Final TEST NOT PERFORMED 11/18/17 23:30 Urine Urine Culture - Final No Growth (<1,000 CFU/ML) 11/17/17 13:00 Other: Please Indicate Mycobacterial Culture - Final 11/16/17 15:20 Urine,Clean Catch Urine Culture - Final Gram Positive Cocci Most Recent Lab Values WBC 4.9 10^3/ul (4.5-11.0) 11/23/17 07:30 RBC 2.56 10^6/uL (3.5-6.1) L 11/23/17 07:30 Hgb 8.5 g/dL (14.0-18.0) L 11/23/17 07:30 Hct 23.6 % (42.0-52.0) L 11/23/17 07:30 MCV 92.2 fl (80.0-105.0) 11/23/17 07:30 MCH 33.2 pg (25.0-35.0) 11/23/17 07:30 MCHC 36.0 g/dl (31.0-37.0) 11/23/17 07:30 RDW 15.2 % (11.5-14.5) H 11/23/17 07:30 Plt Count 120 10^3/uL (120.0-450.0) 11/23/17 07:30 MPV 10.7 fl (7.0-11.0) 11/23/17 07:30 Gran % 61.9 % (50.0-68.0) 11/16/17 03:20 Lymph % (Auto) 29.4 % (22.0-35.0) 11/16/17 03:20 [place] % (Auto) 8.0 % (1.0-6.0) H 11/16/17 03:20 Eos % (Auto) 0.5 % (1.5-5.0) L 11/16/17 03:20 Baso % (Auto) 0.2 % (0.0-3.0) 11/16/17 03:20 Gran # 3.56 (1.4-6.5) 11/16/17 03:20 Lymph # 1.7 (1.2-3.4) 11/16/17 03:20 [place] # 0.5 (0.1-0.6) 11/16/17 03:20 Eos # 0.0 (0.0-0.7) 11/16/17 03:20 Baso # 0.01 K/mm3 (0.0-2.0) 11/16/17 03:20 PT 25.1 SECONDS (9.4-12.5) H 11/22/17 07:30 INR 2.15 (0.93-1.08) H 11/22/17 07:30 Sodium 125 mmol/L (132-148) L 11/23/17 07:30 Potassium 4.2 mmol/L (3.6-5.0) 11/23/17 07:30 Chloride 97 mmol/L (98-107) L 11/23/17 07:30 Carbon Dioxide 23 mmol/L (21-33) 11/23/17 07:30 Anion Gap 10 (10-20) 11/23/17 07:30 BUN 27 mg/dL (7-21) H 11/23/17 07:30 Creatinine 1.2 mg/dl (0.8-1.5) 11/23/17 07:30 Est GFR ( Amer) > 60 11/23/17 07:30 Est GFR (Non-Af Amer) > 60 11/23/17 07:30 Random Glucose 89 mg/dL (70-110) 11/23/17 07:30 Calcium 8.6 mg/dL (8.4-10.5) 11/23/17 07:30 Phosphorus 3.8 mg/dL (2.5-4.5) 11/17/17 06:45 Magnesium 1.6 mg/dL (1.7-2.2) L 11/17/17 06:45 Total Bilirubin 5.2 mg/dL (0.2-1.3) H 11/23/17 07:30 Direct Bilirubin 3.8 mg/dL (0.0-0.4) H 11/16/17 03:20 AST 43 U/L (17-59) 11/23/17 07:30 ALT 31 U/L (7-56) 11/23/17 07:30 Alkaline Phosphatase 77 U/L (38-126) 11/23/17 07:30 Ammonia 27 umol/L (9-33) 11/18/17 09:50 Lactate Dehydrogenase 527 U/L (333-699) 11/16/17 03:20 Total Creatine Kinase 66 U/L (35-230) 11/16/17 03:20 Troponin I < 0.01 ng/mL 11/16/17 03:20 NT-Pro-B Natriuret Pep 387 pg/mL (0-450) 11/16/17 03:20 Total Protein 6.5 g/dL (5.8-8.3) 11/23/17 07:30 Albumin 2.6 g/dL (3.0-4.8) L 11/23/17 07:30 Globulin 3.9 gm/dL 11/23/17 07:30 Albumin/Globulin Ratio 0.7 (1.1-1.8) L 11/23/17 07:30 Lipase 77 U/L (23-300) 11/16/17 03:20 Alpha Fetoprotein 2.9 ng/mL (0.0-7.5) 11/16/17 07:30 Urine Color Dark yellow (YELLOW) 11/18/17 23:30 Urine Appearance Clear (CLEAR) 11/18/17 23:30 Urine pH 6.0 (4.7-8.0) 11/18/17 23:30 Ur Specific [place] 1.025 (1.005-1.035) 11/18/17 23:30 Urine Protein 30 mg/dL (<30 mg/dL) H 11/18/17 23:30 Urine Glucose (UA) Negative mg/dL (NEGATIVE) 11/18/17 23:30 Urine Ketones Trace mg/dL (NEGATIVE) H 11/18/17 23:30 Urine Blood Negative (NEGATIVE) 11/18/17 23:30 Urine Nitrate Negative (NEGATIVE) 11/18/17 23:30 Urine Bilirubin Moderate (NEGATIVE) H 11/18/17 23:30 Urine Urobilinogen 1.0 E.U./dL (<1 E.U./dL) H 11/18/17 23:30 Ur Leukocyte Esterase Negative Sandra/uL (NEGATIVE) 11/18/17 23:30 Urine RBC 0 - 2 /hpf (0-2) 11/18/17 23:30 Urine WBC 0 - 2 /hpf (0-6) 11/18/17 23:30 Ur Epithelial Cells 0 - 2 /hpf (0-5) 11/18/17 23:30 Urine Bacteria Trace (NEG) 11/16/17 06:40 Hyaline Casts 5 - 10 /hpf 11/16/17 06:40 Urine Other Mucus 11/16/17 06:40 Fluid Source Peritoneal 11/17/17 12:30 Fluid Appearance Clear (CLEAR) 11/17/17 12:30 Fluid WBC 107.0 /uL (0.0-300.0) 11/17/17 12:30 Fluid RBC 37.0 /uL (0.0-0.0) H 11/17/17 12:30 Fluid Tot Cell Count 100 (0-0) H 11/17/17 12:30 Fluid Neutrophils 8.4 % (0-0) H 11/17/17 12:30 Fluid Lymphocytes 91.6 % (0-0) H 11/17/17 12:30 Fld Monocyte/Macrophag TEST NOT PERFORMED 11/17/17 12:30 Fluid Albumin 0.5 g/dL 11/17/17 12:30 Fluid Comment Yellow 11/17/17 12:30 Urine Opiates Screen Negative (NEGATIVE) 11/18/17 23:30 Urine Methadone Screen Negative (NEGATIVE) 11/18/17 23:30 Ur Barbiturates Screen Negative (NEGATIVE) 11/18/17 23:30 Ur Phencyclidine Scrn Negative (NEGATIVE) 11/18/17 23:30 Ur Amphetamines Screen No result (NEGATIVE) 11/18/17 23:30 U Benzodiazepines Scrn Negative (NEGATIVE) 11/18/17 23:30 U Oth Cocaine Metabols Negative (NEGATIVE) 11/18/17 23:30 U Cannabinoids Screen Negative (NEGATIVE) 11/18/17 23:30 Alcohol, Quantitative < 10 mg/dL (0-10) 11/16/17 19:30 Hepatitis A IgM Ab Negative (NEGATIVE) 11/16/17 03:20 Hep Bs Antigen Negative (NEGATIVE) 11/16/17 03:20 Hep B Core IgM Ab Negative (NEGATIVE) 11/16/17 03:20 Hepatitis C Antibody Negative (NEGATIVE) 11/16/17 03:20 HIV 1&2 Ag/Ab, 4th Gen Nonreactive (Nonreactive) 11/17/17 06:30 Blood Type O POSITIVE 11/16/17 11:30 Antibody Screen Negative 11/16/17 11:30 BBK History Checked Patient has bt 11/16/17 11:30 Attending/Attestation - Attestation I have personally seen and examined this patient.: Yes I have fully participated in the care of the patient.: Yes I have reviewed all pertinent clinical information, including history, physical exam and plan: Yes Notes (Text): 11/23/17 16:02 attending note; Patient seen and examined with resident. Patient is a 52 year old male with past medical history of alcoholic cirrhosis and ascites is admitted with progressive/decompensated alcoholic cirrhosis s/p large volume paracentesis. GOt IV albumin after paracentesis. GI evaluation appreciated. No bacterial peritonitis. Started on Aldactone. Blood pressure on the low side. Continue to hold Lasix. Chronic hyponatremia; dietary evaluation given. discharge today. Patient will be referred to [facility] upon discharge. [facility] hepat[facility] upon discharge.
== END 2017-11-23 16:07 | disposition home or self-care (01) | DRG 202 ==
LOC: ED 23:21 → ERH 11-16 09:12 → 5RNO 11-16 16:57 → 5RSO 11-20 15:39
PROVIDERS: ADMIT Internal Medicine; ATTEND Internal Medicine
PROC: BW40ZZZ Ultrasonography of Abdomen (ICD-10-PCS; 2017-11-17)
PROC: 0W9G3ZZ Drainage of Peritoneal Cavity, Percutaneous Approach (ICD-10-PCS; principal; 2017-11-17 11:00)
DX: K70.31 Alcoholic cirrhosis of liver with ascites (principal); D68.9 Coagulation defect, unspecified; E87.1 Hypo-osmolality and hyponatremia; D64.9 Anemia, unspecified; J45.909 Unspecified asthma, uncomplicated; K59.00 Constipation, unspecified; L29.9 Pruritus, unspecified; R63.3 Feeding difficulties; Z59.0 Homelessness; Z82.49 Family history of ischemic heart disease and other diseases of the circulatory system; Z82.5 Family history of asthma and other chronic lower respiratory diseases; R26.81 Unsteadiness on feet

== ENCOUNTER 2017-12-27 22:12 | Observation (INO) | payer MEDICAID, OTHER ==
--- NOTE | 2017-12-28 01:21 | CP.PCM.HP ---
<Michael Mcmahon - Last Filed: 12/28/17 03:40> History of Present Illness - History of Present Illness History of Present Illness: Patient is a 52 year old male with a past medical history significant for alcoholic liver cirrhosis. Patient presented as a transfer from [facility]. When asked what was done there he stated "A whole bunch of test". He sure that he got an upper endsocopy twice and a paracentesis last week. At this time patient only complains of mild diffuse abdominal pain with movement. He denies any fevers, chills, SOB, chest pain, nausea, vomiting, constipation, or any urinary symptoms. He admits to loose stools. Past medical history: Asthma, Alcoholic liver cirrhosis Past surgical history: Ventral hernia repair. Multiple Paracentesis Family history: non-contributory Social history: Denies tobacco use, denies alcohol use. Denies drug use. 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 Due to cirrhosis could no longer work, his and now lives in group home. Medications:As per MAR Allergies: none Present on Admission - Present on Admission Any Indicators Present on Admission: No Review of Systems - Review of Systems Review of Systems: As per HPI Past Patient History - Infectious Disease Hx of Infectious Diseases: None - Past Social History Smoking Status: Never Smoked - CARDIAC Hx Cardiac Disorders: No - PULMONARY Hx Respiratory Disorders: No Hx Asthma: Yes - NEUROLOGICAL Hx Neurological Disorder: No - HEENT Hx HEENT Problems: No - RENAL Hx Chronic Kidney Disease: No - ENDOCRINE/METABOLIC Hx Endocrine Disorders: No - HEMATOLOGICAL/ONCOLOGICAL Hx Blood Disorders: No - INTEGUMENTARY Hx Dermatological Problems: Yes - MUSCULOSKELETAL/RHEUMATOLOGICAL Hx Falls: Yes - GASTROINTESTINAL Other/Comment: SOME KIND OF LIVER PROBLEM. ? Ascites - GENITOURINARY/GYNECOLOGICAL Hx Genitourinary Disorders: No - PSYCHIATRIC Hx Psychophysiologic Disorder: No (ETOH ABUSE.) Hx Substance Use: No - SURGICAL HISTORY Hx Surgeries: Yes - ANESTHESIA Hx Anesthesia: Yes Hx Anesthesia Reactions: No Meds Allergies/Adverse Reactions: Allergies Allergy/AdvReac Type Severity Reaction Status Date / Time No Known Allergies Allergy Verified 11/16/17 18:28 Physical Exam - Constitutional Appears: Non-toxic, No Acute Distress, Cachectic - Head Exam Head Exam: ATRAUMATIC, NORMAL INSPECTION, NORMOCEPHALIC - Eye Exam Eye Exam: EOMI, Normal appearance - ENT Exam ENT Exam: Mucous Membranes Dry Additional comments: Cracked, peeling lips - Neck Exam Neck exam: Negative for: Lymphadenopathy - Respiratory Exam Respiratory Exam: Decreased Breath Sounds, Clear to Auscultation Bilateral - Cardiovascular Exam Cardiovascular Exam: RRR, +S1, +S2 - GI/Abdominal Exam GI & Abdominal Exam: Distended, Firm, Hypoactive Bowel Sounds. absent: Guarding , Mass, Rebound, Tenderness Additional comments: Dressing on lateral Right lower quadrant. Dressing is clean, dry, and intact. - Extremities Exam Extremities exam: Negative for: pedal edema - Neurological Exam Neurological exam: Alert, Oriented x3 - Psychiatric Exam Psychiatric exam: Normal Affect, Normal Mood - Skin Skin Exam: Dry, Intact, Normal Color, Warm Assessment & Plan - Assessment and Plan (Free Text) Assessment: 52 year old male with a past medical history significant for alcoholic liver cirrhosis. Patient transferred back to [facility] from [facility]. Plan: Restarted patient's home medications. F/U CBC, CMP in the AM. <Claudia Holliday - Last Filed: 12/28/17 07:03> Results - Vital Signs Recent Vital Signs: Last Vital Signs Temp 97.4 F L 12/28/17 01:02 Pulse 76 12/28/17 01:02 Resp 16 12/28/17 01:02 BP 104/69 12/28/17 01:02 Pulse Ox 96 12/28/17 01:02 - Labs Result Diagrams: 12/28/17 03:40 12/28/17 03:40 Labs: Laboratory Results - last 24 hr 12/28/17 12/28/17 03:40 03:40 WBC 6.6 D RBC 2.51 L Hgb 8.1 L Hct 23.7 L MCV 94.4 MCH 32.3 MCHC 34.2 RDW 16.9 H Plt Count 100 L MPV 12.5 H Gran % 42.7 L Lymph % (Auto) 33.4 [place] % (Auto) 14.9 H Eos % (Auto) 8.5 H Baso % (Auto) 0.5 Gran # 2.82 Lymph # (Auto) 2.2 [place] # (Auto) 1.0 H Eos # (Auto) 0.6 Baso # (Auto) 0.03 Sodium 134 Potassium 4.4 Chloride 92 L Carbon Dioxide 30 Anion Gap 16 BUN 34 H Creatinine 1.4 Est GFR ( Amer) > 60 Est GFR (Non-Af Amer) 53 Random Glucose 101 Calcium 9.3 Phosphorus 3.1 Magnesium 1.8 Total Bilirubin 4.8 H AST 36 ALT 23 Alkaline Phosphatase 63 Total Protein 6.4 Albumin 3.6 Globulin 2.9 Albumin/Globulin Ratio 1.3 Attending/Attestation - Attestation I have personally seen and examined this patient.: Yes I have fully participated in the care of the patient.: Yes I have reviewed all pertinent clinical information: Yes Notes (Text): 12/28/17 07:02 Patient was seen when he was in room # 575-01. Agree with history, physical examination , assessment and plan. Verified with hospital telephone lineman that patient has been accepted by .
[2017-12-28 01:49] VITALS: BMI 20.2
[2017-12-28 04:07] LABS: ALB/GLOB RATIO 1.3 (1.1-1.8); ALBUMIN 3.6 g/dL (3.0-4.8); ALT/SGPT 23 U/L (7-56); AST/SGOT 36 U/L (17-59); BLOOD UREA NITROGEN 34 mg/dL (7-21); CALCIUM 9.3 mg/dL (8.4-10.5); GFR AFRICAN-AMERICAN > 60; GFR NON-AFRICAN AMERICAN 53; MAGNESIUM 1.8 mg/dL (1.7-2.2)
[2017-12-28 04:29] LABS: BASO # 0.03 K/mm3 (0.0-2.0); BASO % 0.5 % (0.0-3.0); EOS # 0.6 (0.0-0.7); EOS % 8.5 % (1.5-5.0); GRAN # 2.82 (1.4-6.5); GRAN % 42.7 % (50.0-68.0); HEMOGLOBIN 8.1 g/dL (14.0-18.0); LYMPH # 2.2 (1.2-3.4); LYMPH % 33.4 % (22.0-35.0); MEAN CELL VOLUME 94.4 fl (80.0-105.0); MEAN CORPUSCULAR HEMOGLOBIN 32.3 pg (25.0-35.0); MEAN CORPUSCULAR HGB CONC 34.2 g/dl (31.0-37.0); MEAN PLATELET VOLUME 12.5 fl (7.0-11.0); MONO % 14.9 % (1.0-6.0); RBC 2.51 10^6/uL (3.5-6.1); RED CELL DISTRIBUTION WIDTH 16.9 % (11.5-14.5); WHITE BLOOD COUNT 6.6 10^3/ul (4.5-11.0)
[2017-12-28] MEDS ORDERED: Bisacodyl 5mg EC Tab PO ONE (09:05)
[2017-12-28 09:18] LABS: INR 2.22 (0.93-1.08); PROTHROMBIN TIME 25.9 SECONDS (9.4-12.5)
[2017-12-28] MEDS: Cholecalciferol 1,000 INTLU TAB PO SCH (11:27)
[2017-12-28] MEDS: Pantoprazole 40 mg EC Tab PO SCH (11:27)
--- NOTE | 2017-12-28 11:54 | CP.PCM.CON ---
History of Present Illness - History of Present Illness History of Present Illness: Palliative consult requested by Dr Bonifacio Jhaveri Reason: Goals of care/advance care planning 52 year old male with history of alcoholic cirrhosis< anemia, CKD and ascites who was transferred from [facility] liver services.He complains of diffuse abdominal pain. He denies fever, chills, SOB, nausea, vomiting , constipate or dysuria.He states that he had numerous tests and paracentisis twice wile at [facility] PMHx: Alcoholic cirrhosis, ascites, anemia,CKD,asthma, deconditioning, cachexia Social History: Never smoker,former alcohol abuse, no illicit drug use. , homeless. Advance Care Planning: The patient does not have an Advanced Directive Family History Non contributory. Review of Systems: As per HPI, otherwise negative review. Past Patient History - Infectious Disease Hx of Infectious Diseases: None - Past Social History Smoking Status: Never Smoked - CARDIAC Hx Cardiac Disorders: No - PULMONARY Hx Respiratory Disorders: No Hx Asthma: Yes - NEUROLOGICAL Hx Neurological Disorder: No - HEENT Hx HEENT Problems: No - RENAL Hx Chronic Kidney Disease: No - ENDOCRINE/METABOLIC Hx Endocrine Disorders: No - HEMATOLOGICAL/ONCOLOGICAL Hx Blood Disorders: No - INTEGUMENTARY Hx Dermatological Problems: Yes - MUSCULOSKELETAL/RHEUMATOLOGICAL Hx Falls: Yes - GASTROINTESTINAL Other/Comment: SOME KIND OF LIVER PROBLEM. ? Ascites - GENITOURINARY/GYNECOLOGICAL Hx Genitourinary Disorders: No - PSYCHIATRIC Hx Psychophysiologic Disorder: No (ETOH ABUSE.) Hx Substance Use: No - SURGICAL HISTORY Hx Surgeries: Yes - ANESTHESIA Hx Anesthesia: Yes Hx Anesthesia Reactions: No Meds Allergies/Adverse Reactions: Allergies Allergy/AdvReac Type Severity Reaction Status Date / Time No Known Allergies Allergy Verified 11/16/17 18:28 - Medications Medications: Current Medications Calcium Carbonate (Oscal) 1,250 mg PO DAILY [facility] Last Admin: 12/28/17 11:26 Dose: 1,250 mg Cholecalciferol (Vitamin D) 1,000 intlu PO DAILY [facility] Last Admin: 12/28/17 11:27 Dose: 1,000 intlu Folic Acid (Folic Acid) 1 mg PO DAILY [facility] Last Admin: 12/28/17 11:17 Dose: 1 mg Furosemide (Lasix) 40 mg PO DAILY [facility] Last Admin: 12/28/17 11:18 Dose: Not Given Lactulose (Enulose) 20 gm PO TID [facility] Last Admin: 12/28/17 11:17 Dose: 20 gm Midodrine (Proamatine) 10 mg PO TID [facility] Last Admin: 12/28/17 11:15 Dose: 10 mg Pantoprazole Sodium (Protonix Ec Tab) 40 mg PO DAILY [facility] Last Admin: 12/28/17 11:27 Dose: 40 mg Rifaximin (Xifaxan) 550 mg PO BID [facility] PRN Reason: Protocol Last Admin: 12/28/17 11:14 Dose: 550 mg Sevelamer HCl (Renagel) 800 mg PO WM [facility] Last Admin: 12/28/17 11:15 Dose: 800 mg Spironolactone (Aldactone) 100 mg PO DAILY [facility] Last Admin: 12/28/17 11:30 Dose: 100 mg Thiamine HCl (Vitamin B1 Tab) 100 mg PO DAILY [facility] Last Admin: 12/28/17 11:18 Dose: 100 mg Tramadol HCl (Ultram) 50 mg PO DAILY PRN PRN Reason: Pain, severe (8-10) Zinc Sulfate (Zinc Sulfate 220 Mg Cap) 220 mg PO DAILY [facility] Last Admin: 12/28/17 11:28 Dose: 220 mg Physical Exam - Constitutional Appears: Cachectic, Chronically Ill - Head Exam Head Exam: NORMAL INSPECTION - Eye Exam Eye Exam: PERRL, Scleral icterus - ENT Exam ENT Exam: Mucous Membranes Moist, Normal Oropharynx - Neck Exam Neck exam: Positive for: Normal Inspection - Respiratory Exam Respiratory Exam: Decreased Breath Sounds, NORMAL BREATHING PATTERN - Cardiovascular Exam Cardiovascular Exam: REGULAR RHYTHM, +S1, +S2 - GI/Abdominal Exam GI & Abdominal Exam: Diminished Bowel Sounds, Distended, Soft - Extremities Exam Extremities exam: Positive for: pedal edema, pedal pulses present - Back Exam Back exam: NORMAL INSPECTION - Neurological Exam Neurological exam: Alert, Oriented x3 - Skin Skin Exam: Dry, Warm Additional comments: jaundice - Additional Findings Additional findings: palliative performance scale rating 40% Results - Vital Signs Recent Vital Signs: Last Vital Signs Temp 97 F L 12/28/17 07:46 Pulse 75 12/28/17 07:46 Resp 16 12/28/17 07:46 BP 93/60 L 12/28/17 11:18 Pulse Ox 98 12/28/17 07:46 - Labs Result Diagrams: 12/28/17 03:40 12/28/17 03:40 Labs: Laboratory Results - last 24 hr 12/28/17 12/28/17 12/28/17 03:40 03:40 08:10 WBC 6.6 D RBC 2.51 L Hgb 8.1 L Hct 23.7 L MCV 94.4 MCH 32.3 MCHC 34.2 RDW 16.9 H Plt Count 100 L MPV 12.5 H Gran % 42.7 L Lymph % (Auto) 33.4 [place] % (Auto) 14.9 H Eos % (Auto) 8.5 H Baso % (Auto) 0.5 Gran # 2.82 Lymph # (Auto) 2.2 [place] # (Auto) 1.0 H Eos # (Auto) 0.6 Baso # (Auto) 0.03 PT 25.9 H INR 2.22 H APTT 45.0 H Sodium 134 Potassium 4.4 Chloride 92 L Carbon Dioxide 30 Anion Gap 16 BUN 34 H Creatinine 1.4 Est GFR ( Amer) > 60 Est GFR (Non-Af Amer) 53 Random Glucose 101 Calcium 9.3 Phosphorus 3.1 Magnesium 1.8 Total Bilirubin 4.8 H AST 36 ALT 23 Alkaline Phosphatase 63 Total Protein 6.4 Albumin 3.6 Globulin 2.9 Albumin/Globulin Ratio 1.3 Assessment & Plan - Assessment and Plan (Free Text) Assessment: 52 year male with history of alcoholic cirrhosis, jaundice, ascites, cachexia who is admitted with diffuse abdominal pain ascites, cachexia and deconditioning. The patient is known to me from previous admission. During our previous meeting we spoke about buttermaker helper care and eventually transitioning to hospice care.We also spoke about completing an Advance Directive. We did not complete complete paperwork because he was sent to [facility] for further evaluation. Patient and I met again today. I explained that his condition and life expectancy is poor. He is aware that his condition is terminal, but does not feel like he is "ready to ". Benefits and burdens of aggressive resuscitation explained. He states he wants to have CPR and intubation, however he is not sure how he feels about being kept alive on machines indefinitely. He states that he will leave this decision to his ex . He understands that if his kidneys fail that he would not be candidate for dialysis. POLST Directive completed. He is of full code status. His ex Coty Gonzalez has been designated as health care surrogate. The patient does not want hospice/ comfort care at this time. He is willing to be placed in fdc care facility. He will consider transitioning to hospice when his condition worsens. Time spent in goals of care and advance care planning discussion, 30 minutes. Plan: Advance care planning;POLST Palliative support in establishing goal of care
--- NOTE | 2017-12-28 12:58 | CP.PCM.CON ---
<Demond Caal - Last Filed: 12/28/17 12:59> History of Present Illness - History of Present Illness History of Present Illness: GI Consult Note - Cali Caal PGY2 cc: cirrhosis HPI: Patient is a 52yo male with past medical history of alcohol abuse, CKD, anemia and alcohol-induced liver cirrhosis that presented to [facility] from [facility]. Patient had previously been admitted to [facility] for abdominal pain associated with ascites and acute kidney injury presumed to be secondary to hepatorenal syndrome. He was subsequently transferred to [facility] where he had a prolonged medical course briefly summarized below. He underwent evaluation by GI/hepatology there where he was determined to not be a candidate for liver transplant or TIPS procedure. He was transferred back to [facility] for medical management of his cirrhosis as well as cachexia. He denies chest pain, palpitations, SOB, nausea, vomiting, fever, chills, cough. 12point ROS as per HPI above otherwise negative PMHx: alcohol-induced liver cirrhosis, anemia, CKD PSHx: multiple paracentesis Allergies: NKDA Social Hx: History of alcohol abuse, homeless and lives in a chcf; ; reportedly no IV drug use or tobacco use Family Hx: Non-contributory Brief [facility] summary: Abdominal US on 12/11: Cirrhosis with portal hypertension, gallbladder sludge Underwent 2 paracentesis where approximately 3L and 6L were removed. No evidence of SBP CT Chest revealed mild thickening of the esophageal wall in the subcarinal region consistent with esophageal carcinoma EGD on 12/23: medium sized non-bleeding esophageal varices found in the distal 3rd of the esophagus, friable esophageal tumor unable to be biopsied due to coagulopathy, severe portal hypertensive gastropathy Reportedly no evidence of liver lesions on CT Was treated for influenza A and pneumonia Past Patient History - Infectious Disease Hx of Infectious Diseases: None - Past Social History Smoking Status: Never Smoked - CARDIAC Hx Cardiac Disorders: No - PULMONARY Hx Respiratory Disorders: No Hx Asthma: Yes - NEUROLOGICAL Hx Neurological Disorder: No - HEENT Hx HEENT Problems: No - RENAL Hx Chronic Kidney Disease: No - ENDOCRINE/METABOLIC Hx Endocrine Disorders: No - HEMATOLOGICAL/ONCOLOGICAL Hx Blood Disorders: No - INTEGUMENTARY Hx Dermatological Problems: Yes - MUSCULOSKELETAL/RHEUMATOLOGICAL Hx Falls: Yes - GASTROINTESTINAL Other/Comment: SOME KIND OF LIVER PROBLEM. ? Ascites - GENITOURINARY/GYNECOLOGICAL Hx Genitourinary Disorders: No - PSYCHIATRIC Hx Psychophysiologic Disorder: No (ETOH ABUSE.) Hx Substance Use: No - SURGICAL HISTORY Hx Surgeries: Yes - ANESTHESIA Hx Anesthesia: Yes Hx Anesthesia Reactions: No Meds Allergies/Adverse Reactions: Allergies Allergy/AdvReac Type Severity Reaction Status Date / Time No Known Allergies Allergy Verified 11/16/17 18:28 - Medications Medications: Current Medications Calcium Carbonate (Oscal) 1,250 mg PO DAILY [facility] Last Admin: 12/28/17 11:26 Dose: 1,250 mg Cholecalciferol (Vitamin D) 1,000 intlu PO DAILY [facility] Last Admin: 12/28/17 11:27 Dose: 1,000 intlu Folic Acid (Folic Acid) 1 mg PO DAILY [facility] Last Admin: 12/28/17 11:17 Dose: 1 mg Furosemide (Lasix) 40 mg PO DAILY [facility] Last Admin: 12/28/17 11:18 Dose: Not Given Lactulose (Enulose) 20 gm PO TID [facility] Last Admin: 12/28/17 11:17 Dose: 20 gm Midodrine (Proamatine) 10 mg PO TID [facility] Last Admin: 12/28/17 11:15 Dose: 10 mg Pantoprazole Sodium (Protonix Ec Tab) 40 mg PO DAILY [facility] Last Admin: 12/28/17 11:27 Dose: 40 mg Rifaximin (Xifaxan) 550 mg PO BID [facility] PRN Reason: Protocol Last Admin: 12/28/17 11:14 Dose: 550 mg Sevelamer HCl (Renagel) 800 mg PO WM [facility] Last Admin: 12/28/17 11:15 Dose: 800 mg Spironolactone (Aldactone) 100 mg PO DAILY [facility] Last Admin: 12/28/17 11:30 Dose: 100 mg Thiamine HCl (Vitamin B1 Tab) 100 mg PO DAILY [facility] Last Admin: 12/28/17 11:18 Dose: 100 mg Tramadol HCl (Ultram) 50 mg PO DAILY PRN PRN Reason: Pain, severe (8-10) Zinc Sulfate (Zinc Sulfate 220 Mg Cap) 220 mg PO DAILY [facility] Last Admin: 12/28/17 11:28 Dose: 220 mg Physical Exam - Constitutional Appears: Cachectic, Chronically Ill - Head Exam Head Exam: ATRAUMATIC, NORMOCEPHALIC - Eye Exam Eye Exam: EOMI Pupil Exam: PERRL - ENT Exam ENT Exam: Mucous Membranes Moist - Neck Exam Neck exam: Positive for: Normal Inspection - Respiratory Exam Respiratory Exam: absent: Rales, Rhonchi, Wheezes - Cardiovascular Exam Cardiovascular Exam: +S1, +S2. absent: Gallop, Rubs - GI/Abdominal Exam GI & Abdominal Exam: Distended, Soft, Tenderness (mild tenderness to palpation) . absent: Firm, Guarding Additional comments: hepatosplenomegaly - Extremities Exam Extremities exam: Positive for: normal inspection. Negative for: pedal edema - Neurological Exam Neurological exam: Alert, CN II-XII Intact, Oriented x3 - Psychiatric Exam Psychiatric exam: Normal Affect, Normal Mood - Skin Skin Exam: Dry, Intact, Warm Additional comments: jaundice Results - Vital Signs Recent Vital Signs: Last Vital Signs Temp 97 F L 12/28/17 07:46 Pulse 75 12/28/17 07:46 Resp 16 12/28/17 07:46 BP 93/60 L 12/28/17 11:18 Pulse Ox 98 12/28/17 07:46 - Labs Result Diagrams: 12/28/17 03:40 12/28/17 03:40 Labs: Laboratory Results - last 24 hr 12/28/17 12/28/17 12/28/17 03:40 03:40 08:10 WBC 6.6 D RBC 2.51 L Hgb 8.1 L Hct 23.7 L MCV 94.4 MCH 32.3 MCHC 34.2 RDW 16.9 H Plt Count 100 L MPV 12.5 H Gran % 42.7 L Lymph % (Auto) 33.4 [place] % (Auto) 14.9 H Eos % (Auto) 8.5 H Baso % (Auto) 0.5 Gran # 2.82 Lymph # (Auto) 2.2 [place] # (Auto) 1.0 H Eos # (Auto) 0.6 Baso # (Auto) 0.03 PT 25.9 H INR 2.22 H APTT 45.0 H Sodium 134 Potassium 4.4 Chloride 92 L Carbon Dioxide 30 Anion Gap 16 BUN 34 H Creatinine 1.4 Est GFR ( Amer) > 60 Est GFR (Non-Af Amer) 53 Random Glucose 101 Calcium 9.3 Phosphorus 3.1 Magnesium 1.8 Total Bilirubin 4.8 H AST 36 ALT 23 Alkaline Phosphatase 63 Total Protein 6.4 Albumin 3.6 Globulin 2.9 Albumin/Globulin Ratio 1.3 Assessment & Plan - Assessment and Plan (Free Text) Plan: 52yo male with history of alcohol induced liver cirrhosis, anemia and CKD presents to [facility] from [facility] for medical management of his cirrhosis and cachexia 1. Alcohol-induced liver cirrhosis 2. Ascites 3. 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 CKD 5. Anemia -Given poor prognosis of his end-stage liver disease, little benefit in biopsy of his esophageal mass -No plans for EGD/biopsy of his esophageal mass at this time -Symptomatic paracentesis as indicated -2gram sodium diet -Child Hilliard Class C, 10 points -MELD-NA score of 26 -Per [facility], not a candidate for liver transplant and TIPS procedures -EGD done at [facility] on 12/23 revealed medium-sized non-bleeding esophageal varices in the distal 3rd of the esophagus and a friable esophageal tumor unable to be biopsied secondary to coagulopathy -CT chest done at [facility] showed mild thickening of the esophageal wall in the subcarinal region consistent with esophageal cancer -Monitor H/H; no overt signs of bleeding at this time -Recommend follow up palliative care recommendations -Continue current medical management per primary team Patient seen and case discussed/reviewed with attending, Dr. Long <Jose Guadalupe Long - Last Filed: 12/28/17 13:46> Meds - Medications Medications: Current Medications Calcium Carbonate (Oscal) 1,250 mg PO DAILY [facility] Last Admin: 12/28/17 11:26 Dose: 1,250 mg Cholecalciferol (Vitamin D) 1,000 intlu PO DAILY [facility] Last Admin: 12/28/17 11:27 Dose: 1,000 intlu Folic Acid (Folic Acid) 1 mg PO DAILY [facility] Last Admin: 12/28/17 11:17 Dose: 1 mg Furosemide (Lasix) 40 mg PO DAILY [facility] Last Admin: 12/28/17 11:18 Dose: Not Given Lactulose (Enulose) 20 gm PO TID [facility] Last Admin: 12/28/17 11:17 Dose: 20 gm Midodrine (Proamatine) 10 mg PO TID [facility] Last Admin: 12/28/17 11:15 Dose: 10 mg Pantoprazole Sodium (Protonix Ec Tab) 40 mg PO DAILY [facility] Last Admin: 12/28/17 11:27 Dose: 40 mg Rifaximin (Xifaxan) 550 mg PO BID [facility] PRN Reason: Protocol Last Admin: 12/28/17 11:14 Dose: 550 mg Sevelamer HCl (Renagel) 800 mg PO WM [facility] Last Admin: 12/28/17 11:15 Dose: 800 mg Spironolactone (Aldactone) 100 mg PO DAILY [facility] Last Admin: 12/28/17 11:30 Dose: 100 mg Thiamine HCl (Vitamin B1 Tab) 100 mg PO DAILY [facility] Last Admin: 12/28/17 11:18 Dose: 100 mg Tramadol HCl (Ultram) 50 mg PO DAILY PRN PRN Reason: Pain, severe (8-10) Zinc Sulfate (Zinc Sulfate 220 Mg Cap) 220 mg PO DAILY [facility] Last Admin: 12/28/17 11:28 Dose: 220 mg Results - Vital Signs Recent Vital Signs: Last Vital Signs Temp 97 F L 12/28/17 07:46 Pulse 75 12/28/17 07:46 Resp 16 12/28/17 07:46 BP 93/60 L 12/28/17 11:18 Pulse Ox 98 12/28/17 07:46 - Labs Result Diagrams: 12/28/17 03:40 12/28/17 03:40 Labs: Laboratory Results - last 24 hr 12/28/17 12/28/17 12/28/17 03:40 03:40 08:10 WBC 6.6 D RBC 2.51 L Hgb 8.1 L Hct 23.7 L MCV 94.4 MCH 32.3 MCHC 34.2 RDW 16.9 H Plt Count 100 L MPV 12.5 H Gran % 42.7 L Lymph % (Auto) 33.4 [place] % (Auto) 14.9 H Eos % (Auto) 8.5 H Baso % (Auto) 0.5 Gran # 2.82 Lymph # (Auto) 2.2 [place] # (Auto) 1.0 H Eos # (Auto) 0.6 Baso # (Auto) 0.03 PT 25.9 H INR 2.22 H APTT 45.0 H Sodium 134 Potassium 4.4 Chloride 92 L Carbon Dioxide 30 Anion Gap 16 BUN 34 H Creatinine 1.4 Est GFR ( Amer) > 60 Est GFR (Non-Af Amer) 53 Random Glucose 101 Calcium 9.3 Phosphorus 3.1 Magnesium 1.8 Total Bilirubin 4.8 H AST 36 ALT 23 Alkaline Phosphatase 63 Total Protein 6.4 Albumin 3.6 Globulin 2.9 Albumin/Globulin Ratio 1.3 Attending/Attestation - Attestation I have personally seen and examined this patient.: Yes I have fully participated in the care of the patient.: Yes I have reviewed all pertinent clinical information: Yes Notes (Text): 12/28/17 13:41 52 year old male with EtOH Cirrhosis c/b varices, ascites, renal failure, also found to have possible esophageal mass suggestive of malignancy. 1. EtOH Cirrhosis 2. Ascites 3. Esophageal mass 4. Esophageal varices Plan: -supportive measures -recommend palliative evaluation -had exhaustive workup at [facility], not a transplant candidate -EGD performed and was suggestive of esophageal malignancy but no biopsy was performed due to risk of bleeding -esophageal varices were also noted at that time -questionable benefit for further eval of esophageal malignancy considering poor prognosis from liver disease and poor functional status make it highly unlikely that he will ever receive treatment for this of any kind -would just monitor it for now, no symptoms at present -paracentesis as needed -sodium restricted diet -recommend lactulose/rifaxamin -on lasix/aldactone -on midodrine
--- NOTE | 2017-12-29 06:46 | CP.PCM.PN ---
<Demond Caal - Last Filed: 12/29/17 11:08> Subjective - Date & Time of Evaluation Date of Evaluation: 12/29/17 Time of Evaluation: 06:44 - Subjective Subjective: GI progress note - Cali Caal PGY2 Patient seen and examined at bedside this morning. No acute overnight events or new complaints reported. Patient had one bowel movement last night and none as of this morning. Tolerating diet without issue. Denies chest pain, palpitations , SOB. 12point ROS as per above otherwise negative Objective - Vital Signs/Intake and Output Vital Signs (last 24 hours): Temp Pulse Resp BP Pulse Ox 97.4 F L 75 18 97/64 L 99 12/29/17 00:05 12/29/17 00:05 12/29/17 00:05 12/29/17 00:05 12/29/17 00:05 Intake and Output: 12/28/17 12/29/17 18:59 06:59 Intake Total 240 480 Output Total 550 Balance 240 -70 - Medications Medications: Current Medications Calcium Carbonate (Oscal) 1,250 mg PO DAILY [facility] Last Admin: 12/28/17 11:26 Dose: 1,250 mg Cholecalciferol (Vitamin D) 1,000 intlu PO DAILY [facility] Last Admin: 12/28/17 11:27 Dose: 1,000 intlu Folic Acid (Folic Acid) 1 mg PO DAILY [facility] Last Admin: 12/28/17 11:17 Dose: 1 mg Furosemide (Lasix) 40 mg PO DAILY [facility] Last Admin: 12/28/17 11:18 Dose: Not Given Lactulose (Enulose) 20 gm PO TID [facility] Last Admin: 12/28/17 18:27 Dose: 20 gm Midodrine (Proamatine) 10 mg PO TID [facility] Last Admin: 12/28/17 18:28 Dose: 10 mg Pantoprazole Sodium (Protonix Ec Tab) 40 mg PO DAILY [facility] Last Admin: 12/28/17 11:27 Dose: 40 mg Rifaximin (Xifaxan) 550 mg PO BID [facility] PRN Reason: Protocol Last Admin: 12/28/17 18:28 Dose: 550 mg Sevelamer HCl (Renagel) 800 mg PO WM [facility] Last Admin: 12/28/17 18:28 Dose: 800 mg Spironolactone (Aldactone) 100 mg PO DAILY [facility] Last Admin: 02/20/18 11:30 Dose: 100 mg Thiamine HCl (Vitamin B1 Tab) 100 mg PO DAILY [facility] Last Admin: 12/28/17 11:18 Dose: 100 mg Tramadol HCl (Ultram) 50 mg PO DAILY PRN PRN Reason: Pain, severe (8-10) Zinc Sulfate (Zinc Sulfate 220 Mg Cap) 220 mg PO DAILY [facility] Last Admin: 12/28/17 11:28 Dose: 220 mg - Labs Labs: 12/28/17 03:40 12/28/17 03:40 PT 25.9 SECONDS (9.4-12.5) H 12/28/17 08:10 INR 2.22 (0.93-1.08) H 12/28/17 08:10 APTT 45.0 Seconds (25.1-36.5) H 12/28/17 08:10 - Constitutional Appears: Cachectic, Chronically Ill - Head Exam Head Exam: ATRAUMATIC, NORMOCEPHALIC - Eye Exam Eye Exam: EOMI Pupil Exam: PERRL - ENT Exam ENT Exam: Mucous Membranes Moist - Respiratory Exam Respiratory Exam: absent: Rales, Rhonchi, Wheezes - Cardiovascular Exam Cardiovascular Exam: +S1, +S2. absent: Gallop, JVD, Rubs - GI/Abdominal Exam GI & Abdominal Exam: Distended, Soft, Tenderness, Organomegaly. absent: Firm, Guarding, Rigid, Rebound Additional comments: palpable hepatosplenomegaly - Extremities Exam Extremities Exam: absent: Pedal Edema - Neurological Exam Neurological Exam: Alert, Awake, Oriented x3 - Skin Skin Exam: Dry, Intact, Warm Additional comments: jaundice Assessment and Plan - Assessment and Plan (Free Text) Plan: 52yo male with history of alcohol induced liver cirrhosis, anemia and CKD presents to [facility] from [facility] for medical management of his cirrhosis and cachexia 1. Alcohol-induced liver cirrhosis 2. Ascites 3. 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 CKD 5. Anemia -Benefits, risks and alternatives to esophageal mass biopsy discussed with patient; will attempt to reach out to family -Symptomatic paracentesis as indicated -2gram sodium diet -Continue with lactulose titrated to 2-3 bowel movements/day and rifaxamin -Child Hilliard Class C, 10 points -MELD-NA score of 28 -Per [facility], not a candidate for liver transplant and TIPS procedures -EGD done at [facility] on 12/23 revealed medium-sized non-bleeding esophageal varices in the distal 3rd of the esophagus and a friable esophageal tumor unable to be biopsied secondary to coagulopathy -CT chest done at [facility] showed mild thickening of the esophageal wall in the subcarinal region consistent with esophageal cancer -Monitor H/H; no overt signs of bleeding at this time -Recommend follow up palliative care recommendations -Continue current medical management per primary team Patient seen and case discussed/reviewed with attending, Dr. English <Richard English - Last Filed: 12/29/17 16:24> Objective - Vital Signs/Intake and Output Vital Signs (last 24 hours): Temp Pulse Resp BP Pulse Ox 97.3 F L 79 16 95/60 L 96 12/29/17 07:00 12/29/17 07:00 12/29/17 07:00 12/29/17 09:11 12/29/17 07:00 Intake and Output: 12/29/17 12/29/17 06:59 18:59 Intake Total 480 Output Total 550 Balance -70 - Medications Medications: Current Medications Calcium Carbonate (Oscal) 1,250 mg PO DAILY [facility] Last Admin: 12/29/17 09:15 Dose: 1,250 mg Cholecalciferol (Vitamin D) 1,000 intlu PO DAILY [facility] Last Admin: 12/29/17 09:17 Dose: 1,000 intlu Folic Acid (Folic Acid) 1 mg PO DAILY [facility] Last Admin: 12/29/17 09:17 Dose: 1 mg Furosemide (Lasix) 40 mg PO DAILY [facility] Last Admin: 12/29/17 09:11 Dose: 40 mg Lactulose (Enulose) 20 gm PO TID [facility] Last Admin: 12/29/17 13:10 Dose: 20 gm Midodrine (Proamatine) 10 mg PO TID [facility] Last Admin: 12/29/17 13:10 Dose: 10 mg Pantoprazole Sodium (Protonix Ec Tab) 40 mg PO DAILY [facility] Last Admin: 12/29/17 09:17 Dose: 40 mg Rifaximin (Xifaxan) 550 mg PO BID [facility] PRN Reason: Protocol Last Admin: 12/29/17 09:12 Dose: 550 mg Sevelamer HCl (Renagel) 800 mg PO WM [facility] Last Admin: 12/29/17 12:32 Dose: 800 mg Spironolactone (Aldactone) 100 mg PO DAILY [facility] Last Admin: 12/29/17 09:17 Dose: 100 mg Thiamine HCl (Vitamin B1 Tab) 100 mg PO DAILY [facility] Last Admin: 12/29/17 09:17 Dose: 100 mg Tramadol HCl (Ultram) 50 mg PO DAILY PRN PRN Reason: Pain, severe (8-10) Zinc Sulfate (Zinc Sulfate 220 Mg Cap) 220 mg PO DAILY [facility] Last Admin: 12/29/17 09:17 Dose: 220 mg - Labs Labs: 12/29/17 07:00 12/29/17 07:00 PT 26.1 SECONDS (9.4-12.5) H 12/29/17 07:00 INR 2.23 (0.93-1.08) H 12/29/17 07:00 APTT 47.2 Seconds (25.1-36.5) H 12/29/17 07:00 Attending/Attestation - Attestation I have personally seen and examined this patient.: Yes I have fully participated in the care of the patient.: Yes I have reviewed all pertinent clinical information, including history, physical exam and plan: Yes Notes (Text): 12/29/17 15:35 Patient seen on rounds with GI fellow and medical territory manager. This is a 52yo male with history of alcohol induced liver cirrhosis decompensated in setting of ascites, Esophageal varices grade 2, recent HRS and EGD done at [facility] showing LGEJ esophageal mass which was not biopsied due to coagulopathy. Patient current MELD score is 28 but he is a poor candidate for liver transplant due to lack of social support. He has a lower GEJ mass which has not been worked up but he denies dysphagia to solids/ liquids. Discussed in length with the patient today regarding high risk of biopsy of GEJ mass due to coagulopathy and underlying varices. Will treat with diuretics for ascites and give lactulose/ rifaximin for HE prophylaxis. Low sodium diet as tolerated. Monitor H/H; no overt signs of bleeding at this time. Will follow closely with you
[2017-12-29 07:27] LABS: BASO # 0.02 K/mm3 (0.0-2.0); BASO % 0.3 % (0.0-3.0); EOS # 0.4 (0.0-0.7); EOS % 5.7 % (1.5-5.0); GRAN # 2.78 (1.4-6.5); GRAN % 41.3 % (50.0-68.0); HEMOGLOBIN 8.1 g/dL (14.0-18.0); LYMPH # 2.6 (1.2-3.4); LYMPH % 38.4 % (22.0-35.0); MEAN CELL VOLUME 93.7 fl (80.0-105.0); MEAN CORPUSCULAR HEMOGLOBIN 32.1 pg (25.0-35.0); MEAN CORPUSCULAR HGB CONC 34.3 g/dl (31.0-37.0); MEAN PLATELET VOLUME 11.7 fl (7.0-11.0); MONO % 14.3 % (1.0-6.0); RBC 2.52 10^6/uL (3.5-6.1); RED CELL DISTRIBUTION WIDTH 16.7 % (11.5-14.5); WHITE BLOOD COUNT 6.7 10^3/ul (4.5-11.0)
[2017-12-29 07:41] LABS: PARTIAL THROMBOPLASTIN TIME 47.2 Seconds (25.1-36.5)
[2017-12-29 07:43] LABS: INR 2.23 (0.93-1.08); PROTHROMBIN TIME 26.1 SECONDS (9.4-12.5)
[2017-12-29 07:50] LABS: ALB/GLOB RATIO 1.2 (1.1-1.8); ALBUMIN 3.7 g/dL (3.0-4.8); CALCIUM 9.4 mg/dL (8.4-10.5)
[2017-12-29] MEDS: Cholecalciferol 1,000 INTLU TAB PO SCH (09:17)
[2017-12-29] MEDS: Pantoprazole 40 mg EC Tab PO SCH (09:17)
--- NOTE | 2017-12-29 15:55 | CP.PCM.PN ---
<Abdelrahman Martinez - Last Filed: 12/30/17 03:46> Subjective - Date & Time of Evaluation Date of Evaluation: 12/29/17 Time of Evaluation: 06:10 - Subjective Subjective: Patient seen and examined at bedside. Was endorse that patient denied physical therapy the day before. Discussed with patient the importance of physical therapy so patient could be a candidate for subacute rehab. Patient states he will be willing to partake in physical therapy today. States that he has made one bowel movement overnight. Is urinating. Denies nausea,vomiting, diarrhea, chest pain, shortness of breath, fevers, chills, cough, headache, confusion. Objective - Vital Signs/Intake and Output Vital Signs (last 24 hours): Temp Pulse Resp BP Pulse Ox 97.3 F L 79 16 95/60 L 96 12/29/17 07:00 12/29/17 07:00 12/29/17 07:00 12/29/17 09:11 12/29/17 07:00 Intake and Output: 12/29/17 12/29/17 06:59 18:59 Intake Total 480 Output Total 550 Balance -70 - Medications Medications: Current Medications Calcium Carbonate (Oscal) 1,250 mg PO DAILY [facility] Last Admin: 12/29/17 09:15 Dose: 1,250 mg Cholecalciferol (Vitamin D) 1,000 intlu PO DAILY [facility] Last Admin: 12/29/17 09:17 Dose: 1,000 intlu Folic Acid (Folic Acid) 1 mg PO DAILY [facility] Last Admin: 12/29/17 09:17 Dose: 1 mg Furosemide (Lasix) 40 mg PO DAILY [facility] Last Admin: 12/29/17 09:11 Dose: 40 mg Lactulose (Enulose) 20 gm PO TID [facility] Last Admin: 12/29/17 13:10 Dose: 20 gm Midodrine (Proamatine) 10 mg PO TID [facility] Last Admin: 12/29/17 13:10 Dose: 10 mg Pantoprazole Sodium (Protonix Ec Tab) 40 mg PO DAILY [facility] Last Admin: 12/29/17 09:17 Dose: 40 mg Rifaximin (Xifaxan) 550 mg PO BID [facility] PRN Reason: Protocol Last Admin: 12/29/17 09:12 Dose: 550 mg Sevelamer HCl (Renagel) 800 mg PO WM [facility] Last Admin: 12/29/17 12:32 Dose: 800 mg Spironolactone (Aldactone) 100 mg PO DAILY [facility] Last Admin: 12/29/17 09:17 Dose: 100 mg Thiamine HCl (Vitamin B1 Tab) 100 mg PO DAILY [facility] Last Admin: 12/29/17 09:17 Dose: 100 mg Tramadol HCl (Ultram) 50 mg PO DAILY [facility] PRN Reason: Pain, severe (8-10) Zinc Sulfate (Zinc Sulfate 220 Mg Cap) 220 mg PO DAILY [facility] Last Admin: 12/29/17 09:17 Dose: 220 mg - Labs Labs: 12/29/17 07:00 12/29/17 07:00 PT 26.1 SECONDS (9.4-12.5) H 12/29/17 07:00 INR 2.23 (0.93-1.08) H 12/29/17 07:00 APTT 47.2 Seconds (25.1-36.5) H 12/29/17 07:00 - Constitutional Appears: Non-toxic, No Acute Distress - Head Exam Head Exam: ATRAUMATIC, NORMAL INSPECTION, NORMOCEPHALIC - Eye Exam Eye Exam: EOMI, Normal appearance - ENT Exam ENT Exam: Mucous Membranes Moist, Normal Exam - Neck Exam Neck Exam: Normal Inspection - Respiratory Exam Respiratory Exam: Clear to Ausculation Bilateral, NORMAL BREATHING PATTERN. absent: Rales, Rhonchi, Wheezes - Cardiovascular Exam Cardiovascular Exam: REGULAR RHYTHM, +S1, +S2 - GI/Abdominal Exam GI & Abdominal Exam: Distended, Soft, Normal Bowel Sounds - Extremities Exam Extremities Exam: Normal Inspection - Back Exam Back Exam: NORMAL INSPECTION - Neurological Exam Neurological Exam: Alert, Awake, Oriented x3 - Psychiatric Exam Psychiatric exam: Normal Affect, Normal Mood - Skin Skin Exam: Intact, Normal Color, Warm Assessment and Plan - Assessment and Plan (Free Text) Assessment: Patient is a 52 year old male with a history of Alcohol-induced decompensated liver cirrhosis, Ascites, hepatorenal syndrome, with newly discovered esophageal mass who presents as a transfer from [facility]. Plan: Decompensated liver cirrhosis -Continue new medications from [facility] including multivitamins supplementation -Monitor Strict I&O -Low Sodium diet -Titrate lactulose;C2-3 bowel movements/day. Continue with rifaximin -Monitor H&H -Discussed with patient in detail importance of physical therapy -[facility], patient is not a candidate for liver transplant. Patient had a MELD score of 28, Child Hilliard score of 10. -Discussed with GI plan regarding patient -Social Work and crossing guard involved to find subacute rehabilitation for patient CKD -Monitor strict Intake and output -Low sodium diet -Creatinine 1.6, continue to monitor -Encourage increased fluid intake GI/PVT prophylaxis: Protonix/SCD <Sheryl Jhaveri - Last Filed: 12/30/17 16:31> Objective - Vital Signs/Intake and Output Vital Signs (last 24 hours): Temp Pulse Resp BP Pulse Ox 98.9 F 65 18 108/60 98 12/30/17 06:00 12/30/17 06:00 12/30/17 06:00 12/30/17 11:06 12/30/17 06:00 Intake and Output: 12/30/17 12/30/17 06:59 18:59 Intake Total 240 Output Total 300 Balance -60 - Medications Medications: Current Medications Calcium Carbonate (Oscal) 1,250 mg PO DAILY [facility] Last Admin: 12/30/17 11:06 Dose: 1,250 mg Cholecalciferol (Vitamin D) 1,000 intlu PO DAILY [facility] Last Admin: 12/30/17 11:08 Dose: 1,000 intlu Folic Acid (Folic Acid) 1 mg PO DAILY [facility] Last Admin: 12/30/17 11:07 Dose: 1 mg Furosemide (Lasix) 40 mg PO DAILY [facility] Last Admin: 12/30/17 11:06 Dose: 40 mg Lactulose (Enulose) 20 gm PO TID [facility] Last Admin: 12/30/17 11:06 Dose: 20 gm Lactulose (Enulose) 20 gm PO Q4H PRN PRN Reason: Other Midodrine (Proamatine) 10 mg PO TID [facility] Last Admin: 12/30/17 11:07 Dose: 10 mg Pantoprazole Sodium (Protonix Ec Tab) 40 mg PO DAILY [facility] Last Admin: 12/30/17 11:06 Dose: 40 mg Rifaximin (Xifaxan) 550 mg PO BID [facility] PRN Reason: Protocol Last Admin: 12/30/17 11:06 Dose: 550 mg Sevelamer HCl (Renagel) 800 mg PO WM [facility] Last Admin: 02/22/18 08:32 Dose: 800 mg Spironolactone (Aldactone) 100 mg PO DAILY [facility] Last Admin: 12/30/17 11:07 Dose: 100 mg Thiamine HCl (Vitamin B1 Tab) 100 mg PO DAILY [facility] Last Admin: 12/30/17 11:07 Dose: 100 mg Tramadol HCl (Ultram) 50 mg PO DAILY [facility] PRN Reason: Pain, severe (8-10) Zinc Sulfate (Zinc Sulfate 220 Mg Cap) 220 mg PO DAILY [facility] Last Admin: 12/30/17 11:07 Dose: 220 mg - Labs Labs: 12/30/17 07:00 12/30/17 07:00 PT 26.1 SECONDS (9.4-12.5) H 12/29/17 07:00 INR 2.23 (0.93-1.08) H 12/29/17 07:00 APTT 48.3 Seconds (25.1-36.5) H 12/30/17 07:00 Attending/Attestation - Attestation I have personally seen and examined this patient.: Yes I have fully participated in the care of the patient.: Yes I have reviewed all pertinent clinical information, including history, physical exam and plan: Yes Notes (Text): 12/30/17 16:22 attending note; Patient seen and examined with resident. Patient is a 52 year old male with a history of Alcohol-induced decompensated liver cirrhosis, Ascites, hepatorenal syndrome, with newly discovered esophageal mass was transferred back to our service from [facility]. patient is not a candidate for liver transplantation or TIPS procedure as per [facility]. Mass in the lower esophagus was not biopsied due to high risk. status post paracentesis in [facility]. Monitor closely. continue Diuretics. Paracentesis as needed. Currently patient is tolerating diet. Alert and awake. cachexia/severe deconditioning due to advanced liver disease. palliative care evaluation appreciated. Patient is currently full code. GI evaluation appreciated. No plan for endoscopy. Sacral decubitus; patient is strongly advised to get out of bed. PT evaluation requested. case discussed with director of social work for discharge planning.
--- NOTE | 2017-12-30 07:11 | CP.PCM.PN ---
Subjective - Date & Time of Evaluation Date of Evaluation: 12/30/17 Time of Evaluation: 07:09 - Subjective Subjective: GI Progress note - Cali Caal PGY2 Patient seen and examined at bedside this morning. No acute overnight events or Objective - Vital Signs/Intake and Output Vital Signs (last 24 hours): Temp Pulse Resp BP Pulse Ox 98.9 F 76 20 120/82 97 12/30/17 00:10 12/30/17 00:10 12/30/17 00:10 12/30/17 00:10 12/30/17 00:10 Intake and Output: 12/30/17 12/30/17 06:59 18:59 Intake Total 240 Output Total 300 Balance -60 - Medications Medications: Current Medications Calcium Carbonate (Oscal) 1,250 mg PO DAILY [facility] Last Admin: 12/29/17 09:15 Dose: 1,250 mg Cholecalciferol (Vitamin D) 1,000 intlu PO DAILY [facility] Last Admin: 12/29/17 09:17 Dose: 1,000 intlu Folic Acid (Folic Acid) 1 mg PO DAILY [facility] Last Admin: 12/29/17 09:17 Dose: 1 mg Furosemide (Lasix) 40 mg PO DAILY [facility] Last Admin: 12/29/17 09:11 Dose: 40 mg Lactulose (Enulose) 20 gm PO TID [facility] Last Admin: 12/29/17 18:37 Dose: 20 gm Midodrine (Proamatine) 10 mg PO TID [facility] Last Admin: 12/29/17 18:36 Dose: 10 mg Pantoprazole Sodium (Protonix Ec Tab) 40 mg PO DAILY [facility] Last Admin: 12/29/17 09:17 Dose: 40 mg Rifaximin (Xifaxan) 550 mg PO BID [facility] PRN Reason: Protocol Last Admin: 12/29/17 18:37 Dose: 550 mg Sevelamer HCl (Renagel) 800 mg PO WM [facility] Last Admin: 12/29/17 18:36 Dose: 800 mg Spironolactone (Aldactone) 100 mg PO DAILY [facility] Last Admin: 12/29/17 09:17 Dose: 100 mg Thiamine HCl (Vitamin B1 Tab) 100 mg PO DAILY [facility] Last Admin: 12/29/17 09:17 Dose: 100 mg Tramadol HCl (Ultram) 50 mg PO DAILY PRN PRN Reason: Pain, severe (8-10) Zinc Sulfate (Zinc Sulfate 220 Mg Cap) 220 mg PO DAILY [facility] Last Admin: 12/29/17 09:17 Dose: 220 mg - Labs Labs: 12/29/17 07:00 12/29/17 07:00 PT 26.1 SECONDS (9.4-12.5) H 12/29/17 07:00 INR 2.23 (0.93-1.08) H 12/29/17 07:00 APTT 47.2 Seconds (25.1-36.5) H 12/29/17 07:00
[2017-12-30 07:44] LABS: BASO # 0.02 K/mm3 (0.0-2.0); BASO % 0.3 % (0.0-3.0); EOS # 0.3 (0.0-0.7); EOS % 3.9 % (1.5-5.0); GRAN # 3.06 (1.4-6.5); GRAN % 45.4 % (50.0-68.0); HEMOGLOBIN 7.7 g/dL (14.0-18.0); LYMPH # 2.3 (1.2-3.4); LYMPH % 34.8 % (22.0-35.0); MEAN CORPUSCULAR HEMOGLOBIN 31.8 pg (25.0-35.0); MEAN CORPUSCULAR HGB CONC 34.2 g/dl (31.0-37.0); MEAN PLATELET VOLUME 11.8 fl (7.0-11.0); MONO # 1.1 (0.1-0.6); MONO % 15.6 % (1.0-6.0); RBC 2.42 10^6/uL (3.5-6.1); RED CELL DISTRIBUTION WIDTH 16.4 % (11.5-14.5); WHITE BLOOD COUNT 6.7 10^3/ul (4.5-11.0)
--- NOTE | 2017-12-30 07:51 | CP.PCM.PN ---
<Demond Caal - Last Filed: 12/30/17 08:55> Subjective - Date & Time of Evaluation Date of Evaluation: 12/30/17 Time of Evaluation: 07:12 - Subjective Subjective: GI progress note - Cali Caal PGY2 Patient seen and examined at bedside this morning. No acute overnight events or new complaints. Patient tolerating diet and denies nausea, vomiting, fever, chills, melena, hematochezia. 12point ROS as per above otherwise negative Objective - Vital Signs/Intake and Output Vital Signs (last 24 hours): Temp Pulse Resp BP Pulse Ox 98.9 F 76 20 120/82 97 12/30/17 00:10 12/30/17 00:10 12/30/17 00:10 12/30/17 00:10 12/30/17 00:10 Intake and Output: 12/30/17 12/30/17 06:59 18:59 Intake Total 240 Output Total 300 Balance -60 - Medications Medications: Current Medications Calcium Carbonate (Oscal) 1,250 mg PO DAILY [facility] Last Admin: 12/29/17 09:15 Dose: 1,250 mg Cholecalciferol (Vitamin D) 1,000 intlu PO DAILY [facility] Last Admin: 12/29/17 09:17 Dose: 1,000 intlu Folic Acid (Folic Acid) 1 mg PO DAILY [facility] Last Admin: 12/29/17 09:17 Dose: 1 mg Furosemide (Lasix) 40 mg PO DAILY [facility] Last Admin: 12/29/17 09:11 Dose: 40 mg Lactulose (Enulose) 20 gm PO TID [facility] Last Admin: 12/29/17 18:37 Dose: 20 gm Midodrine (Proamatine) 10 mg PO TID [facility] Last Admin: 12/29/17 18:36 Dose: 10 mg Pantoprazole Sodium (Protonix Ec Tab) 40 mg PO DAILY [facility] Last Admin: 12/29/17 09:17 Dose: 40 mg Rifaximin (Xifaxan) 550 mg PO BID [facility] PRN Reason: Protocol Last Admin: 12/29/17 18:37 Dose: 550 mg Sevelamer HCl (Renagel) 800 mg PO WM [facility] Last Admin: 12/29/17 18:36 Dose: 800 mg Spironolactone (Aldactone) 100 mg PO DAILY [facility] Last Admin: 12/29/17 09:17 Dose: 100 mg Thiamine HCl (Vitamin B1 Tab) 100 mg PO DAILY [facility] Last Admin: 12/29/17 09:17 Dose: 100 mg Tramadol HCl (Ultram) 50 mg PO DAILY PRN PRN Reason: Pain, severe (8-10) Zinc Sulfate (Zinc Sulfate 220 Mg Cap) 220 mg PO DAILY [facility] Last Admin: 12/29/17 09:17 Dose: 220 mg - Labs Labs: 12/29/17 07:00 12/29/17 07:00 PT 26.1 SECONDS (9.4-12.5) H 12/29/17 07:00 INR 2.23 (0.93-1.08) H 12/29/17 07:00 APTT 47.2 Seconds (25.1-36.5) H 12/29/17 07:00 - Constitutional Appears: Cachectic, Chronically Ill - Head Exam Head Exam: ATRAUMATIC, NORMOCEPHALIC - Eye Exam Eye Exam: EOMI, PERRL - ENT Exam ENT Exam: Mucous Membranes Moist - Respiratory Exam Respiratory Exam: absent: Rhonchi, Wheezes, Respiratory Distress - Cardiovascular Exam Cardiovascular Exam: +S1, +S2. absent: Gallop, Rubs, Murmur - GI/Abdominal Exam GI & Abdominal Exam: Distended, Soft. absent: Firm, Guarding, Rigid, Tenderness , Rebound Additional comments: hepatosplenomegaly - Extremities Exam Extremities Exam: absent: Pedal Edema - Neurological Exam Neurological Exam: Alert, Awake, Oriented x3 - Psychiatric Exam Psychiatric exam: Normal Affect, Normal Mood - Skin Skin Exam: Dry, Intact, Warm Additional comments: jaundice Assessment and Plan - Assessment and Plan (Free Text) Plan: 52yo male with history of alcohol induced liver cirrhosis, anemia and CKD presents to [facility] from [facility] for medical management of his cirrhosis and cachexia 1. Alcohol-induced liver cirrhosis 2. Ascites 3. 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 CKD 5. Anemia -Given poor prognosis of his end-stage liver disease, little benefit in biopsy of his esophageal mass -No plans for EGD/biopsy of his esophageal mass at this time -Symptomatic paracentesis as indicated -2gram sodium diet -Continue with lactulose titrated to 2-3 bowel movements/day and rifaxamin -Child Hilliard Class C, 10 points -MELD-NA score of 26 -Per [facility], not a candidate for liver transplant and TIPS procedures -EGD done at [facility] on 12/23 revealed medium-sized non-bleeding esophageal varices in the distal 3rd of the esophagus and a friable esophageal tumor unable to be biopsied secondary to coagulopathy -CT chest done at [facility] showed mild thickening of the esophageal wall in the subcarinal region consistent with esophageal cancer -Monitor H/H; no overt signs of bleeding at this time -Recommend follow up palliative care recommendations -Continue current medical management per primary team Patient seen and case discussed/reviewed with attending, Dr. Long <Jose Guadalupe Long - Last Filed: 12/30/17 10:37> Objective - Vital Signs/Intake and Output Vital Signs (last 24 hours): Temp Pulse Resp BP Pulse Ox 98.9 F 65 18 101/67 98 12/30/17 06:00 12/30/17 06:00 12/30/17 06:00 12/30/17 06:00 12/30/17 06:00 Intake and Output: 12/30/17 12/30/17 06:59 18:59 Intake Total 240 Output Total 300 Balance -60 - Medications Medications: Current Medications Calcium Carbonate (Oscal) 1,250 mg PO DAILY [facility] Last Admin: 12/29/17 09:15 Dose: 1,250 mg Cholecalciferol (Vitamin D) 1,000 intlu PO DAILY [facility] Last Admin: 12/29/17 09:17 Dose: 1,000 intlu Folic Acid (Folic Acid) 1 mg PO DAILY [facility] Last Admin: 12/29/17 09:17 Dose: 1 mg Furosemide (Lasix) 40 mg PO DAILY [facility] Last Admin: 12/29/17 09:11 Dose: 40 mg Lactulose (Enulose) 20 gm PO TID [facility] Last Admin: 12/29/17 18:37 Dose: 20 gm Lactulose (Enulose) 20 gm PO Q4H PRN PRN Reason: Other Midodrine (Proamatine) 10 mg PO TID [facility] Last Admin: 12/29/17 18:36 Dose: 10 mg Pantoprazole Sodium (Protonix Ec Tab) 40 mg PO DAILY [facility] Last Admin: 12/29/17 09:17 Dose: 40 mg Rifaximin (Xifaxan) 550 mg PO BID [facility] PRN Reason: Protocol Last Admin: 12/29/17 18:37 Dose: 550 mg Sevelamer HCl (Renagel) 800 mg PO WM [facility] Last Admin: 12/30/17 08:32 Dose: 800 mg Spironolactone (Aldactone) 100 mg PO DAILY [facility] Last Admin: 12/29/17 09:17 Dose: 100 mg Thiamine HCl (Vitamin B1 Tab) 100 mg PO DAILY [facility] Last Admin: 12/29/17 09:17 Dose: 100 mg Tramadol HCl (Ultram) 50 mg PO DAILY PRN PRN Reason: Pain, severe (8-10) Zinc Sulfate (Zinc Sulfate 220 Mg Cap) 220 mg PO DAILY [facility] Last Admin: 12/29/17 09:17 Dose: 220 mg - Labs Labs: 12/30/17 07:00 12/30/17 07:00 PT 26.1 SECONDS (9.4-12.5) H 12/29/17 07:00 INR 2.23 (0.93-1.08) H 12/29/17 07:00 APTT 48.3 Seconds (25.1-36.5) H 12/30/17 07:00 Attending/Attestation - Attestation I have personally seen and examined this patient.: Yes I have fully participated in the care of the patient.: Yes I have reviewed all pertinent clinical information, including history, physical exam and plan: Yes Notes (Text): 12/30/17 10:36 52 year old male with EtOH Cirrhosis c/b varices, ascites, renal failure, also found to have possible esophageal mass suggestive of malignancy. 1. EtOH Cirrhosis 2. Ascites 3. Esophageal mass 4. Esophageal varices Plan: -supportive measures -had exhaustive workup at [facility], not a transplant candidate -EGD performed and was suggestive of esophageal malignancy but no biopsy was performed due to risk of bleeding -esophageal varices were also noted at that time -would not pursue further evaluation of esophageal malignancy considering poor prognosis from liver disease and poor functional status make it highly unlikely that he will ever receive treatment for this of any kind and he is currently asymptomatic -paracentesis as needed -sodium restricted diet -recommend lactulose/rifaxamin -on lasix/aldactone -on midodrine
[2017-12-30 07:54] LABS: ALB/GLOB RATIO 1.1 (1.1-1.8); ALBUMIN 3.4 g/dL (3.0-4.8); CALCIUM 9.2 mg/dL (8.4-10.5)
--- NOTE | 2017-12-30 10:42 | CP.PCM.DIS ---
Provider - Provider Date of Admission: 12/27/17 22:12 Attending physician: Sheryl Jhaveri MD Hospital Course - Lab Results Lab Results: Most Recent Lab Values WBC 6.7 10^3/ul (4.5-11.0) 12/30/17 07:00 RBC 2.42 10^6/uL (3.5-6.1) L 12/30/17 07:00 Hgb 7.7 g/dL (14.0-18.0) L 12/30/17 07:00 Hct 22.5 % (42.0-52.0) L 12/30/17 07:00 MCV 93.0 fl (80.0-105.0) 12/30/17 07:00 MCH 31.8 pg (25.0-35.0) 12/30/17 07:00 MCHC 34.2 g/dl (31.0-37.0) 12/30/17 07:00 RDW 16.4 % (11.5-14.5) H 12/30/17 07:00 Plt Count 116 10^3/uL (120.0-450.0) L 12/30/17 07:00 MPV 11.8 fl (7.0-11.0) H 12/30/17 07:00 Gran % 45.4 % (50.0-68.0) L 12/30/17 07:00 Lymph % (Auto) 34.8 % (22.0-35.0) 12/30/17 07:00 [place] % (Auto) 15.6 % (1.0-6.0) H 12/30/17 07:00 Eos % (Auto) 3.9 % (1.5-5.0) 12/30/17 07:00 Baso % (Auto) 0.3 % (0.0-3.0) 12/30/17 07:00 Gran # 3.06 (1.4-6.5) 12/30/17 07:00 Lymph # (Auto) 2.3 (1.2-3.4) 12/30/17 07:00 [place] # (Auto) 1.1 (0.1-0.6) H 12/30/17 07:00 Eos # (Auto) 0.3 (0.0-0.7) 12/30/17 07:00 Baso # (Auto) 0.02 K/mm3 (0.0-2.0) 12/30/17 07:00 PT 26.1 SECONDS (9.4-12.5) H 12/29/17 07:00 INR 2.23 (0.93-1.08) H 12/29/17 07:00 APTT 48.3 Seconds (25.1-36.5) H 12/30/17 07:00 Sodium 134 mmol/L (132-148) 12/30/17 07:00 Potassium 4.2 mmol/L (3.6-5.0) 12/30/17 07:00 Chloride 93 mmol/L (98-107) L 12/30/17 07:00 Carbon Dioxide 29 mmol/L (21-33) 12/30/17 07:00 Anion Gap 16 (10-20) 12/30/17 07:00 BUN 33 mg/dL (7-21) H 12/30/17 07:00 Creatinine 1.5 mg/dl (0.8-1.5) 12/30/17 07:00 Est GFR ( Amer) 60 12/30/17 07:00 Est GFR (Non-Af Amer) 49 12/30/17 07:00 Random Glucose 98 mg/dL (70-110) 12/30/17 07:00 Calcium 9.2 mg/dL (8.4-10.5) 12/30/17 07:00 Phosphorus 3.1 mg/dL (2.5-4.5) 12/28/17 03:40 Magnesium 1.8 mg/dL (1.7-2.2) 12/28/17 03:40 Total Bilirubin 5.3 mg/dL (0.2-1.3) H 12/30/17 07:00 AST 29 U/L (17-59) 12/30/17 07:00 ALT 26 U/L (7-56) 12/30/17 07:00 Alkaline Phosphatase 57 U/L (38-126) 12/30/17 07:00 Total Protein 6.4 g/dL (5.8-8.3) 12/30/17 07:00 Albumin 3.4 g/dL (3.0-4.8) 12/30/17 07:00 Globulin 3.0 gm/dL 12/30/17 07:00 Albumin/Globulin Ratio 1.1 (1.1-1.8) 12/30/17 07:00 - Hospital Course Hospital Course: risk outweigh benefits, pt agrees. Discharge Exam - Head Exam Head Exam: ATRAUMATIC, NORMOCEPHALIC Discharge Plan - Follow Up Plan Condition: GOOD Disposition: HOME/ ROUTINE Additional Instructions: 1. Follow up with Dr. Melecio Sullivan, Interventional radiologist, for paracentesis to relieve symptoms caused by ascites. 2. Follow up with GI which? 3. Follow up with Oncologist which? 4. Follow up with PMD which?
[2017-12-30] MEDS: Pantoprazole 40 mg EC Tab PO SCH (11:06)
[2017-12-30] MEDS: Cholecalciferol 1,000 INTLU TAB PO SCH (11:08)
--- NOTE | 2017-12-31 06:12 | CP.PCM.PN ---
<Demond Caal - Last Filed: 12/31/17 12:51> Subjective - Date & Time of Evaluation Date of Evaluation: 12/31/17 Time of Evaluation: 06:08 - Subjective Subjective: GI progress note - Cali Caal PGY2 Patient seen and examined at bedside this morning. No acute overnight events or new complaints reported. Tolerating diet without issue. Denies abdominal pain, nausea, vomiting, fever, chills. 12point ROS as per above otherwise negative Objective - Vital Signs/Intake and Output Vital Signs (last 24 hours): Temp Pulse Resp BP Pulse Ox 98.3 F 70 20 107/75 100 12/30/17 16:00 12/30/17 16:00 12/30/17 16:00 12/30/17 16:00 12/30/17 16:00 Intake and Output: 12/30/17 12/31/17 18:59 06:59 Intake Total 120 Output Total 300 Balance -180 - Medications Medications: Current Medications Calcium Carbonate (Oscal) 1,250 mg PO DAILY [facility] Last Admin: 12/30/17 11:06 Dose: 1,250 mg Cholecalciferol (Vitamin D) 1,000 intlu PO DAILY [facility] Last Admin: 12/30/17 11:08 Dose: 1,000 intlu Folic Acid (Folic Acid) 1 mg PO DAILY [facility] Last Admin: 12/30/17 11:07 Dose: 1 mg Furosemide (Lasix) 40 mg PO DAILY [facility] Last Admin: 12/30/17 11:06 Dose: 40 mg Lactulose (Enulose) 20 gm PO TID [facility] Last Admin: 12/30/17 17:01 Dose: 20 gm Lactulose (Enulose) 20 gm PO Q4H PRN PRN Reason: Other Midodrine (Proamatine) 10 mg PO TID [facility] Last Admin: 12/30/17 17:01 Dose: 10 mg Pantoprazole Sodium (Protonix Ec Tab) 40 mg PO DAILY [facility] Last Admin: 12/30/17 11:06 Dose: 40 mg Rifaximin (Xifaxan) 550 mg PO BID [facility] PRN Reason: Protocol Last Admin: 12/30/17 17:01 Dose: 550 mg Sevelamer HCl (Renagel) 800 mg PO [facility] Last Admin: 12/30/17 17:01 Dose: 800 mg Spironolactone (Aldactone) 100 mg PO DAILY [facility] Last Admin: 12/30/17 11:07 Dose: 100 mg Thiamine HCl (Vitamin B1 Tab) 100 mg PO DAILY [facility] Last Admin: 12/30/17 11:07 Dose: 100 mg Zinc Sulfate (Zinc Sulfate 220 Mg Cap) 220 mg PO DAILY [facility] Last Admin: 12/30/17 11:07 Dose: 220 mg - Labs Labs: 12/30/17 07:00 12/30/17 07:00 PT 26.1 SECONDS (9.4-12.5) H 12/29/17 07:00 INR 2.23 (0.93-1.08) H 12/29/17 07:00 APTT 48.3 Seconds (25.1-36.5) H 12/30/17 07:00 - Constitutional Appears: Cachectic, Chronically Ill - Head Exam Head Exam: ATRAUMATIC, NORMOCEPHALIC - Eye Exam Eye Exam: EOMI Pupil Exam: PERRL - ENT Exam ENT Exam: Mucous Membranes Moist - Respiratory Exam Respiratory Exam: absent: Rales, Rhonchi, Wheezes - Cardiovascular Exam Cardiovascular Exam: +S1, +S2. absent: Gallop, Rubs - GI/Abdominal Exam GI & Abdominal Exam: Distended, Soft. absent: Firm, Guarding, Rigid, Tenderness Additional comments: hepatosplenomegaly - Extremities Exam Extremities Exam: absent: Pedal Edema - Neurological Exam Neurological Exam: Alert, Awake, Oriented x3 - Psychiatric Exam Psychiatric exam: Normal Affect, Normal Mood - Skin Skin Exam: Dry, Intact, Warm Additional comments: jaundice Assessment and Plan - Assessment and Plan (Free Text) Plan: 52yo male with history of alcohol induced liver cirrhosis, anemia and CKD presents to [facility] from [facility] for medical management of his cirrhosis and cachexia 1. Alcohol-induced liver cirrhosis 2. Ascites 3. 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 Esophageal mass 5. CKD 6. Anemia -Given poor prognosis of his end-stage liver disease and poor functional status , little benefit in biopsy of his esophageal mass -No plans for EGD/biopsy of his esophageal mass at this time -Symptomatic paracentesis as indicated -2gram sodium diet -Continue with lactulose titrated to 2-3 bowel movements/day and rifaxamin -Child Hilliard Class C, 10 points -MELD-NA score of 26 -Per [facility], not a candidate for liver transplant and TIPS procedures -EGD done at [facility] on 12/23 revealed medium-sized non-bleeding esophageal varices in the distal 3rd of the esophagus and a friable esophageal tumor unable to be biopsied secondary to coagulopathy -CT chest done at [facility] showed mild thickening of the esophageal wall in the subcarinal region consistent with esophageal cancer -Monitor H/H; no overt signs of bleeding at this time -Recommend follow up palliative care recommendations -Continue current medical management per primary team -No GI intervention planned at this time, we will sign off this case, please reconsult as deemed necessary. Thank you for this consult. Patient seen and case discussed/reviewed with attending, Dr. Craven <Christos Craven - Last Filed: 12/31/17 13:17> Objective - Vital Signs/Intake and Output Vital Signs (last 24 hours): Temp Pulse Resp BP Pulse Ox 98.2 F 79 18 90/63 L 96 12/31/17 07:00 12/31/17 07:00 12/31/17 07:00 12/31/17 09:35 12/31/17 07:00 Intake and Output: 12/31/17 12/31/17 06:59 18:59 Intake Total 120 Output Total 300 Balance -180 - Medications Medications: Current Medications Calcium Carbonate (Oscal) 1,250 mg PO DAILY [facility] Last Admin: 12/31/17 09:34 Dose: 1,250 mg Cholecalciferol (Vitamin D) 1,000 intlu PO DAILY [facility] Last Admin: 12/31/17 09:34 Dose: 1,000 intlu Folic Acid (Folic Acid) 1 mg PO DAILY [facility] Last Admin: 12/31/17 09:34 Dose: 1 mg Furosemide (Lasix) 40 mg PO DAILY [facility] Last Admin: 12/31/17 09:35 Dose: Not Given Lactulose (Enulose) 20 gm PO TID [facility] Last Admin: 12/31/17 09:33 Dose: 20 gm Lactulose (Enulose) 20 gm PO Q4H PRN PRN Reason: Other Midodrine (Proamatine) 10 mg PO TID [facility] Last Admin: 12/31/17 09:34 Dose: 10 mg Pantoprazole Sodium (Protonix Ec Tab) 40 mg PO DAILY [facility] Last Admin: 12/31/17 09:34 Dose: 40 mg Rifaximin (Xifaxan) 550 mg PO BID [facility] PRN Reason: Protocol Last Admin: 12/31/17 09:34 Dose: 550 mg Sevelamer HCl (Renagel) 800 mg PO WM [facility] Last Admin: 12/31/17 12:40 Dose: Not Given Spironolactone (Aldactone) 100 mg PO DAILY [facility] Last Admin: 12/31/17 09:34 Dose: Not Given Thiamine HCl (Vitamin B1 Tab) 100 mg PO DAILY [facility] Last Admin: 12/31/17 09:34 Dose: 100 mg Zinc Sulfate (Zinc Sulfate 220 Mg Cap) 220 mg PO DAILY [facility] Last Admin: 12/31/17 09:34 Dose: 220 mg - Labs Labs: 12/31/17 07:00 12/31/17 07:00 PT 26.1 SECONDS (9.4-12.5) H 12/29/17 07:00 INR 2.23 (0.93-1.08) H 12/29/17 07:00 APTT 48.3 Seconds (25.1-36.5) H 12/30/17 07:00 Attending/Attestation - Attestation I have personally seen and examined this patient.: Yes I have fully participated in the care of the patient.: Yes I have reviewed all pertinent clinical information, including history, physical exam and plan: Yes Notes (Text): 12/31/17 13:12 I have seen and examined patient with GI fellow and medical research scientist. No acute events overnight, he endorses mild epigastric abdominal discomfort but denies nausea, vomiting, fever/chills. Tolerating PO diet without difficulty. ETOH decompensated cirrhosis Chronic renal insufficiency Ascites Esophageal mass - biopsy not performed given location in proximity to known esophageal varices and results not likely to change course of management given non-operative candidate - Low sodium diet as tolerated - Continue with diuretic therapy, monitor creatinine and urine output - Continue with lactulose and xifaxan therapy for HE prevention - Patient may require therapeutic paracentesis in near future - Overall patient prognosis is quite poor given likely esophageal malignancy in setting of end stage liver disease. Patient is not candidate for transplant or operative resection of esophageal mass. Would therefore suggest consideration of hospice care with the overall focus on patient comfort. No further planned GI intervention, will sign off case. Please reconsult as necessary, thank you.
[2017-12-31 07:23] LABS: BASO # 0.02 K/mm3 (0.0-2.0); BASO % 0.3 % (0.0-3.0); EOS # 0.2 (0.0-0.7); EOS % 2.5 % (1.5-5.0); GRAN # 3.06 (1.4-6.5); GRAN % 48.7 % (50.0-68.0); HEMOGLOBIN 7.9 g/dL (14.0-18.0); LYMPH # 2.3 (1.2-3.4); LYMPH % 36.6 % (22.0-35.0); MEAN CELL VOLUME 92.4 fl (80.0-105.0); MEAN CORPUSCULAR HEMOGLOBIN 31.5 pg (25.0-35.0); MEAN CORPUSCULAR HGB CONC 34.1 g/dl (31.0-37.0); MEAN PLATELET VOLUME 12.2 fl (7.0-11.0); MONO # 0.8 (0.1-0.6); MONO % 11.9 % (1.0-6.0); RBC 2.51 10^6/uL (3.5-6.1); RED CELL DISTRIBUTION WIDTH 16.5 % (11.5-14.5); WHITE BLOOD COUNT 6.3 10^3/ul (4.5-11.0)
[2017-12-31 07:32] LABS: ALB/GLOB RATIO 1.1 (1.1-1.8); ALBUMIN 3.7 g/dL (3.0-4.8); CALCIUM 9.5 mg/dL (8.4-10.5)
--- NOTE | 2017-12-31 08:36 | CP.PCM.PN ---
<Abdelrahman Martinez - Last Filed: 12/31/17 08:38> Subjective - Date & Time of Evaluation Date of Evaluation: 12/30/17 Time of Evaluation: 06:05 - Subjective Subjective: Patient seen and examined at bedside in no acute distress. States he has made only one bowel movement since yesterday, has the desire to go but when he tries , he is unable to. Denies headache, chest pain, confusion, shortness of breath, abdominal pain ,nausea, vomiting, diarrhea, fevers, chills. Objective - Vital Signs/Intake and Output Vital Signs (last 24 hours): Temp Pulse Resp BP Pulse Ox 98.3 F 70 20 107/75 100 12/30/17 16:00 12/30/17 16:00 12/30/17 16:00 12/30/17 16:00 12/30/17 16:00 Intake and Output: 12/31/17 12/31/17 06:59 18:59 Intake Total 120 Output Total 300 Balance -180 - Medications Medications: Current Medications Calcium Carbonate (Oscal) 1,250 mg PO DAILY [facility] Last Admin: 12/30/17 11:06 Dose: 1,250 mg Cholecalciferol (Vitamin D) 1,000 intlu PO DAILY [facility] Last Admin: 12/30/17 11:08 Dose: 1,000 intlu Folic Acid (Folic Acid) 1 mg PO DAILY [facility] Last Admin: 12/30/17 11:07 Dose: 1 mg Furosemide (Lasix) 40 mg PO DAILY [facility] Last Admin: 12/30/17 11:06 Dose: 40 mg Lactulose (Enulose) 20 gm PO TID [facility] Last Admin: 12/30/17 17:01 Dose: 20 gm Lactulose (Enulose) 20 gm PO Q4H PRN PRN Reason: Other Midodrine (Proamatine) 10 mg PO TID [facility] Last Admin: 12/30/17 17:01 Dose: 10 mg Pantoprazole Sodium (Protonix Ec Tab) 40 mg PO DAILY [facility] Last Admin: 12/30/17 11:06 Dose: 40 mg Rifaximin (Xifaxan) 550 mg PO BID [facility] PRN Reason: Protocol Last Admin: 12/30/17 17:01 Dose: 550 mg Sevelamer HCl (Renagel) 800 mg PO WM [facility] Last Admin: 12/30/17 17:01 Dose: 800 mg Spironolactone (Aldactone) 100 mg PO DAILY [facility] Last Admin: 12/30/17 11:07 Dose: 100 mg Thiamine HCl (Vitamin B1 Tab) 100 mg PO DAILY [facility] Last Admin: 12/30/17 11:07 Dose: 100 mg Zinc Sulfate (Zinc Sulfate 220 Mg Cap) 220 mg PO DAILY [facility] Last Admin: 12/30/17 11:07 Dose: 220 mg - Labs Labs: 12/31/17 07:00 12/31/17 07:00 PT 26.1 SECONDS (9.4-12.5) H 12/29/17 07:00 INR 2.23 (0.93-1.08) H 12/29/17 07:00 APTT 48.3 Seconds (25.1-36.5) H 12/30/17 07:00 - Constitutional Appears: Non-toxic, No Acute Distress - Head Exam Head Exam: ATRAUMATIC, NORMAL INSPECTION, NORMOCEPHALIC - Eye Exam Eye Exam: EOMI, Normal appearance - ENT Exam ENT Exam: Mucous Membranes Moist - Neck Exam Neck Exam: Normal Inspection - Respiratory Exam Respiratory Exam: Clear to Ausculation Bilateral, NORMAL BREATHING PATTERN. absent: Rhonchi, Wheezes - Cardiovascular Exam Cardiovascular Exam: REGULAR RHYTHM, +S1, +S2 - GI/Abdominal Exam GI & Abdominal Exam: Distended, Soft, Normal Bowel Sounds - Neurological Exam Neurological Exam: Alert, Awake, Oriented x3 - Psychiatric Exam Psychiatric exam: Normal Affect, Normal Mood - Skin Skin Exam: Intact, Normal Color, Warm Assessment and Plan - Assessment and Plan (Free Text) Assessment: Patient is a 52 year old male with a history of Alcohol-induced decompensated liver cirrhosis, Ascites, hepatorenal syndrome, with newly discovered esophageal mass who presents as a transfer from [facility]. Plan: Decompensated liver cirrhosis -Continue new medications from [facility] including multivitamins supplementation -Continue to monitor Strict I&O -Continue with low sodium diet -Titrate lactulose;2-3 bowel movements/day. Continue with rifaximin. -Monitor H&H -As per [facility], patient is not a candidate for liver transplant. Patient had a MELD score of 28, Child Hilliard score of 10. -Discussed with GI plan regarding patient -Social Work and pre owned sales manager involved to find subacute rehabilitation for patient. CKD -Monitor strict Intake and output; output is more than input. Continue to monitor -Low sodium diet -Creatinine continues to downtrend; continue to monitor -Increased fluid intake encouraged GI/PVT prophylaxis: Protonix/SCD Disposition:[facility] has accepted patient however insurance has denied request. Case will go to medical research associate, decision will be made tomorrow. Case discussed and reviewed with Dr. Shakila Martinez PGY1 <Sheryl Jhaveri - Last Filed: 12/31/17 18:44> Objective - Vital Signs/Intake and Output Vital Signs (last 24 hours): Temp Pulse Resp BP Pulse Ox 98.2 F 79 18 90/63 L 96 12/31/17 07:00 12/31/17 07:00 12/31/17 07:00 12/31/17 09:35 12/31/17 07:00 Intake and Output: 12/31/17 12/31/17 06:59 18:59 Intake Total 120 480 Output Total 300 300 Balance -180 180 - Labs Labs: 12/31/17 07:00 12/31/17 07:00 PT 26.1 SECONDS (9.4-12.5) H 12/29/17 07:00 INR 2.23 (0.93-1.08) H 12/29/17 07:00 APTT 48.3 Seconds (25.1-36.5) H 12/30/17 07:00 Attending/Attestation - Attestation I have personally seen and examined this patient.: Yes I have fully participated in the care of the patient.: Yes I have reviewed all pertinent clinical information, including history, physical exam and plan: Yes Notes (Text): 12/31/17 18:44 attending note; Patient seen and examined with resident. Patient is a 52 year old male with a history of Alcohol-induced decompensated liver cirrhosis, Ascites, hepatorenal syndrome, with newly discovered esophageal mass was transferred back to our service from [facility]. patient is not a candidate for liver transplantation or TIPS procedure as per [facility]. Mass in the lower esophagus was not biopsied due to high risk. status post paracentesis in [facility]. Monitor closely. continue Diuretics. Paracentesis as needed. Currently patient is tolerating diet. Alert and awake. cachexia/severe deconditioning due to advanced liver disease. palliative care evaluation appreciated. Patient is currently full code. GI evaluation appreciated. No plan for endoscopy. Sacral decubitus; patient is strongly advised to get out of bed. PT evaluation appreciated. case discussed with geriatric social worker for discharge planning.
[2017-12-31 09:03] VITALS: PULSE 79; RESP 18; TEMP 98.2; O2SAT 96
[2017-12-31] MEDS: Pantoprazole 40 mg EC Tab PO SCH (09:34)
[2017-12-31] MEDS: Cholecalciferol 1,000 INTLU TAB PO SCH (09:34)
[2017-12-31 09:44] VITALS: BP 90/63
== END 2017-12-31 16:10 | disposition home or self-care (01) ==
LOC: 5RSO 22:12 → INTOOBSV 22:12 → 5RSO 12-30 13:53
PROVIDERS: ADMIT Internal Medicine; ATTEND Internal Medicine
DX: K70.31 Alcoholic cirrhosis of liver with ascites (principal); C15.9 Malignant neoplasm of esophagus, unspecified; I85.00 Esophageal varices without bleeding; D63.8 Anemia in other chronic diseases classified elsewhere; J45.909 Unspecified asthma, uncomplicated; K31.89 Other diseases of stomach and duodenum; K72.90 Hepatic failure, unspecified without coma; K76.6 Portal hypertension; L89.159 Pressure ulcer of sacral region, unspecified stage; N18.9 Chronic kidney disease, unspecified; R64 Cachexia; Z59.0 Homelessness; D68.9 Coagulation defect, unspecified
CPT/HCPCS: 36415; 80053; 82948; 83735; 84100; 85025; 85610; 85730; 97162; 97530; G0378; G8978; G8979